=== PATIENT | female | born 1950 | race Two or more races ===

== ENCOUNTER → 2020-08-15 08:39 | Outpatient (BNVA) | payer MEDICARE, SELFPAY | PROVIDERS: PCP Internal Medicine; Referring Provider Internal Medicine; Visit Provider Internal Medicine Endocrinology, Diabetes & Metabolism | DX: E03.9 Hypothyroidism, unspecified (principal); E06.3 Autoimmune thyroiditis; E04.1 Nontoxic single thyroid nodule; E66.9 Obesity, unspecified; Z68.32 Body mass index [BMI] 32.0-32.9, adult; Z79.899 Other long term (current) drug therapy | CPT/HCPCS: 99214 ==

== ENCOUNTER 2020-08-15 09:52 | Outpatient (REF) | payer MEDICARE, SELFPAY ==
[2020-08-15 11:25] LABS: Free T4 (Free Thyroxine) 1.02 ng/dL (0.71-1.85); Thyroid Stimulating Hormone 1.85 mIU/mL (0.32-4.0)
== END 2020-08-15 09:53 | disposition home or self-care (01) ==
LOC: HO.10HDL 09:52
PROVIDERS: Visit Provider Internal Medicine Endocrinology, Diabetes & Metabolism
DX: E03.9 Hypothyroidism, unspecified (principal); E66.9 Obesity, unspecified
CPT/HCPCS: 84439; 84443

== ENCOUNTER → 2020-09-12 13:23 | Outpatient (BNVA) | payer MEDICARE, SELFPAY | PROVIDERS: PCP Internal Medicine; Referring Provider Internal Medicine; Visit Provider Dietitian, Registered | DX: Z76.89 Persons encountering health services in other specified circumstances (principal) ==

== ENCOUNTER 2020-09-23 13:58 | Outpatient (REF) | payer MEDICARE, SELFPAY | END 2020-09-23 13:59 | disposition home or self-care (01) | LOC: HO.LAB 13:58 | PROVIDERS: PCP Internal Medicine; Visit Provider Internal Medicine | DX: Z20.828 Contact with and (suspected) exposure to other viral communicable diseases (principal) | CPT/HCPCS: C9803; U0003 ==

== ENCOUNTER 2020-10-09 14:53 | Outpatient (REF) | payer MEDICARE, SELFPAY ==
[2020-10-09 16:14] LABS: MANUAL DIFF FLAG NO
[2020-10-09 16:17] LABS: Basophils Percent Auto 0.3 % (0-2); Eosinophils Absolute Auto 0.1 X10*3/uL (0.0-0.4); Eosinophils Percent Auto 1.6 % (0-4); Hematocrit 41.8 % (37-47); Hemoglobin 13.7 g/dl (12.0-16.0); Imm Gran Abs Auto 0.02 X10*3/uL (0.00-0.03); Imm Gran Pct Auto 0.3 % (0.0-0.4); Lymphocytes Absolute Auto 2.4 X10*3/uL (1.2-4.9); Lymphocytes Percent Auto 31.3 % (20-40); Mean Corpuscular HGB Conc 32.8 g/dl (31.0-35.0); Mean Corpuscular Hemoglobin 30.2 pg (27.0-33.0); Mean Corpuscular Volume 92.3 fL (80-98); Mean Platelet Volume 10.7 fL (9.4-12.3); Monocytes Absolute Auto 0.7 X10*3/uL (0.1-1.2); Monocytes Percent Auto 8.6 % (2-11); Neutrophils Absolute Auto 4.4 X10*3/uL (2.0-8.3); Neutrophils Percent Auto 57.9 % (45-73); Platelet Count 271 X10*3/uL (160-400); Red Blood Count 4.53 X10*6/uL (4.20-5.50); Red Cell Distribution Width 12.9 % (11.0-16.0); White Blood Count 7.6 X10*3/uL (4.8-10.8)
[2020-10-09 16:51] LABS: Alanine Aminotransferase 17 U/L (0-31); Albumin Level 4.7 g/dL (3.5-5.0); Alkaline Phosphatase 83 U/L (39-117); Anion Gap 11 (12-20); Aspartate Amino Transferase 14 U/L (5-31); Bilirubin Total 0.3 mg/dL (0.0-1.0); Blood Urea Nitrogen 14 mg/dL (9-16); Calcium 9.7 mg/dL (8.4-10.2); Carbon Dioxide 30 mmol/L (22-29); Chloride 104 mmol/L (96-108); Cholesterol 137 mg/dL; Estimated Glomerular Filt Rate > 60; Glucose Fasting 126 mg/dL (60-99); HDL Cholesterol 51 mg/dL; LDL Cholesterol Calculated 68 mg/dl; Potassium 4.5 mmol/l (3.3-5.1); Sodium 140 mmol/L (135-145); Total Protein 7.5 g/dL (6.5-8.0); Triglycerides 91 mg/dL
[2020-10-09 17:02] LABS: Erythrocyte Sedimentation Rate 6 MM/HR (0-20)
[2020-10-09 17:19] LABS: Alanine Aminotransferase 17 U/L (0-31); Albumin Level 4.7 g/dL (3.5-5.0); Alkaline Phosphatase 83 U/L (39-117); Anion Gap 12 (12-20); Aspartate Amino Transferase 14 U/L (5-31); Bilirubin Total 0.3 mg/dL (0.0-1.0); Blood Urea Nitrogen 14 mg/dL (9-16); C Reactive Protein 0.75 mg/dL (< or = 0.50); Calcium 9.7 mg/dL (8.4-10.2); Carbon Dioxide 29 mmol/L (22-29); Chloride 104 mmol/L (96-108); Estimated Glomerular Filt Rate > 60; Glucose Random 124 mg/dL (60-115); Potassium 4.7 mmol/l (3.3-5.1); Rheumatoid Factor < 15.0 IU/mL (<15.0); Sodium 140 mmol/L (135-145); Total Protein 7.5 g/dL (6.5-8.0)
[2020-10-10 12:03] LABS: Cyclic Citrullinated Peptide <16 UNITS
== END 2020-10-09 14:54 | disposition home or self-care (01) ==
LOC: HO.LAB 14:53
PROVIDERS: PCP Internal Medicine; Referring Provider Internal Medicine; Visit Provider Student in an Organized Health Care Education/Training Program
DX: E78.00 Pure hypercholesterolemia, unspecified (principal); M25.50 Pain in unspecified joint; Z79.899 Other long term (current) drug therapy
CPT/HCPCS: 36415; 80053; 80061; 84443; 85025; 85652; 86140; 86200; 86431; 99202

== ENCOUNTER 2020-10-15 11:52 | Outpatient (REF) | payer MEDICARE, SELFPAY ==
--- NOTE | 2020-10-15 11:57 | US_ITS ---
EXAMINATION: US THYROID CLINICAL INFORMATION: Nontoxic single thyroid nodule. COMPARISON: Ultrasound soft tissue head/neck thyroid dated 06/07/2019 and 04/26/2018 TECHNIQUE: Linear transducer jacobs-scale and color Doppler examination with attention to the region of the thyroid. FINDINGS: SIZE: Measurements of the thyroid lobes and nodules are given in sagittal, anteroposterior and transverse dimensions respectively. Right Thyroid Lobe: 3.5 x 1.4 x 1.3 cm, volume 3.3 mL. Previously 3.5 x 1.4 x 1.2 cm, volume 3.6 mL. Parenchyma: The gland echotexture is slightly heterogeneous. Thyroid vascularity is normal. Left Thyroid Lobe: 3.7 x 1.0 x 1.2 cm, volume 2.3 mL. Previously 3.4 x 1.2 x 1.1 cm, volume 2.4 mL. Parenchyma: The gland echotexture is homogeneous. Thyroid vascularity is normal. Isthmus: 0.3 cm in maximum AP dimension. Previously 0.3 cm. RIGHT THYROID LOBE: No nodules. ISTHMUS: No nodules. LEFT THYROID LOBE: There is 1 nodule seen. 1. Location: Middle/inferior. Size: 1.0 x 0.5 x 0.7 cm. Previous: 0.7 x 0.6 x 0.7 cm. Nodule characteristics: Isoechoic, hypoechoic rind, microcalcifications with intranodular flow. NODES: No lymphadenopathy is seen in the tissue surrounding the thyroid gland. US/US thyroid IMPRESSION: Solid 1 cm nodule left thyroid lobe, stable. Recommend annual ultrasound followup.
== END 2020-10-15 11:53 | disposition home or self-care (01) ==
LOC: HO.US 11:52
PROVIDERS: Visit Provider Internal Medicine Endocrinology, Diabetes & Metabolism
DX: E04.1 Nontoxic single thyroid nodule (principal)
CPT/HCPCS: 76536

== ENCOUNTER → 2020-10-28 10:53 | Outpatient (BNVA) | payer MEDICARE, SELFPAY | PROVIDERS: PCP Internal Medicine; Visit Provider Dietitian, Registered | DX: Z76.89 Persons encountering health services in other specified circumstances (principal) ==

== ENCOUNTER 2020-11-04 11:27 | Outpatient (REF) | payer MEDICARE, SELFPAY ==
--- NOTE | 2020-11-04 11:41 | MM_ITS ---
EXAMINATION: MM SCREENING DIGITAL BREAST TOMOSYNTHESIS, BILATERAL CLINICAL INFORMATION: Screening. Asymptomatic. The lifetime risk of breast cancer based on the Tyrer-Cuzick Model is 3%. COMPARISON: Mammography: 05/03/2018, 04/29/2017, 01/06/2016 TECHNIQUE: Digital breast tomosynthesis is performed in both the craniocaudal and mediolateral oblique views along with computer-aided detection (CAD). Synthesized 2D images are generated from the tomosynthesis. Additional right CC view is provided. FINDINGS: There are scattered areas of fibroglandular density (ACR BI-RADS breast composition Category b). There are no significant masses, abnormal calcifications, or other abnormalities. Parenchymal pattern is similar to prior studies. No significant changes. MM/MM tomosynthesis screening BI IMPRESSION: No mammographic evidence of malignancy. ASSESSMENT: BI-RADS 1: Negative RECOMMENDATION: Routine annual mammography screening. This patient's information was entered into a reminder system with a target due date for their next mammogram.
== END 2020-11-04 11:28 | disposition home or self-care (01) ==
LOC: HO.MAMMO 11:27
PROVIDERS: Visit Provider Internal Medicine
DX: Z12.31 Encounter for screening mammogram for malignant neoplasm of breast (principal); E78.00 Pure hypercholesterolemia, unspecified
CPT/HCPCS: 77063; 77067; Q3014

== ENCOUNTER → 2020-11-06 13:37 | Outpatient (BNVA) | payer MEDICARE, SELFPAY | PROVIDERS: Visit Provider Student in an Organized Health Care Education/Training Program | DX: M25.50 Pain in unspecified joint (principal) | CPT/HCPCS: Q3014 ==

== ENCOUNTER → 2020-11-18 13:53 | Outpatient (BNVA) | payer MEDICARE, SELFPAY | PROVIDERS: Visit Provider Internal Medicine | DX: R07.2 Precordial pain (principal); E11.8 Type 2 diabetes mellitus with unspecified complications; I10 Essential (primary) hypertension; E78.5 Hyperlipidemia, unspecified | CPT/HCPCS: 93005; 99202 ==

== ENCOUNTER → 2020-12-26 12:17 | Outpatient (BNVA) | payer MEDICARE, SELFPAY | PROVIDERS: Visit Provider Dietitian, Registered ==

== ENCOUNTER → 2021-01-01 09:18 | Outpatient (REF) | payer MEDICARE, SELFPAY ==
--- NOTE | ~2021-01-01 | NM_ITS ---
Exercise Myocardial perfusion study Indication: The cardial chest pain to evaluate for myocardial ischemia Technique: The patient was brought in for an exercise perfusion study on 01/01/2021. Patient performed exercise as per Steve protocol and was injected 25 mCi of sestamibi was given intravenously one target HR was achieved. Images were obtained using the SPECT gamma camera interlaced with the gating device. Images were obtained in supine position. Resting perfusion study was performed on 01/02/2021. Patient was administered 25 mCi of sestamibi intravenously at rest. Images were then obtained in supine position. Images obtained with and without CT attenuation. Total DLP 67 mGy-cm. Images were processed with the software and compared side to side in short axis, horizontal long axis and vertical long axis views. Findings: The stress perfusion study showed non attenuated images show normal uptake of radiotracer in all segments of LV myocardium. Attenuation corrected images show mildly reduced uptake in the apex of the LV myocardium. The gated study shows normal LV systolic function with calculated LVEF of 72%. LV cavity is normal in size. The gated study shows normal systolic wall thickening and contraction of all segments. There is no transient ischemic dilation. Resting study shows non attenuated images show minimally reduced uptake in the apex of the LV myocardium. Gating at rest reveals normal systolic wall motion with ejection fraction at 72%. The findings are consistent with normal myocardial perfusion. NM/NM cardiolite stress test Impression: 1. Normal myocardial perfusion 2. Gated LVEF is 72% 3. Transient ischemic dilatation not present Stress EKG is negative for ischemia
--- NOTE | 2021-01-01 09:30 | CA_ITS ---
Acquisition Time: 2021-01-01 10:39:45 Total Exercise Time: 00:05:01 Test Indications: Chest Pain Medications: ALBUTEROL ASA LEVOTHYROXINE LISINOPRIL PANTOPRAZOLE SIMVASTATIN Protocol: LAURA Max HR: 131 BPM 86% of Pred: 152 BPM Max BP: 134/070 mmHG Max Work Load: 4.6 METS Exercise stress test using Laura protocol. Total of 5 min 1 sec. METS 4.60 and TAPHR up to 86%. Test was modified d/t pt's inability to walk fast, second stage was held. Pt tolerated well, denies any anginal sx. EKG with isolated PVC's. No ischemic changes seen during exercise or in recovery. Nuclear images to follow. Normotensive response to exercise. Test reviewed with Dr. Little. Referred By: Misael Chase Overread By:
== END ==
LOC: HO.CARD 09:18
PROVIDERS: Visit Provider Internal Medicine
DX: R07.2 Precordial pain (principal)
CPT/HCPCS: 78452; 93016; 93017; 93018; A9500; J0280; J2785

== ENCOUNTER → 2021-01-30 13:06 | Outpatient (BNVA) | payer MEDICARE, SELFPAY | PROVIDERS: PCP Internal Medicine; Visit Provider Dietitian, Registered | DX: Z13.89 Encounter for screening for other disorder (principal) | CPT/HCPCS: 97803 ==

== ENCOUNTER → 2021-02-03 09:17 | Outpatient (REF) | payer MEDICARE, SELFPAY ==
--- NOTE | 2021-02-03 09:32 | CA_ITS ---
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 Normal LV systolic function with grade 1 diastolic dysfunction 2. Normal cardiac valvular Doppler 3. Normal RV systolic pressure 4. No pericardial effusion Findings Left Ventricle Normal left ventricular size, thickness, and systolic function. The visually estimated ejection fraction is between 60-65%. Spectral Doppler is indicative of an impaired relaxation filling pattern. E/E prime ratio is <8, consistent with normal filling pressures. Evidence suggests grade I (mild) diastolic dysfunction. Right Ventricle Normal right ventricular cavity size and systolic function. Atria Both atria are normal in size. There is no evidence of interatrial shunt. Aortic Valve The aortic valve was not well visualized. There is no aortic valve stenosis. There is no aortic valve regurgitation. Mitral Valve Normal mitral valve structure and function. There is trace mitral valve regurgitation. There is no mitral valve stenosis. Pulmonic Valve The pulmonic valve was not well visualized. Tricuspid Valve Likely normal tricuspid valve structure and function. There is trace tricuspid valve regurgitation. The right ventricular systolic pressure is normal. The right ventricular systolic pressure is 21 mmHg. Normal right atrial pressure. There is no evidence of pulmonary hypertension. Great Vessels All visible segments of the aorta are normal in size. The pulmonary artery was not well visualized. Venous The inferior vena cava is normal in size and collapses greater than 50% with inspiration. Pericardium/Pleural There is no evidence of pericardial effusion. Prior Study Comparison No prior study available for comparison. Measurements 2D Linear Measurements IVSd: 0.89 0.6-0.9/0.6-1.0 cm LVIDd: 3.19 3.9-5.3/4.2-5.9 cm LVIDd Index: 1.90 2.4-3.2/2.2-3.1 cm/m2 LVIDs: 2.04 2.0-3.6 cm LVPWd: 0.94 0.7-1.1 cm Ao Root: 2.90 2.1-3.5 cm LA Diam: 3.80 2.7-3.8/3.0-4.0 cm LAIDs Index: 2.26 1.5-2.3 cm/m2 LV Mass: 148.88 67-162/88-224 g LV Mass Index: 88.62 43-95/49-115 g/m2 LVOT Diam: 2.20 3.0+(-)1.3 cm Mitral Valve MV Pk E: 0.63 MV PK A: 0.77 MV Decel Time: 211.00 E/A: 0.80 E'Lateral: 11.50 E'Medial: 5.71 E/E' Med: 11.00 E/E' Lat: 5.40 PHT: 62.00 MVA PHT: 3.55 Decel [place]cho: 2.96 Aortic Valve AoV Pk Elias: 1.69 AoV Mn Elias: 1.01 AoV VTI: 0.36 AoV Pk Grad: 11.00 Aov Mn Grad: 5.00 ANU Cont.VTI: 2.67 LVOT LVOT Pk Elias: 1.16 LVOT Mn Elias: 0.72 LVOT VTI: 0.25 LVOT Pk Grad: 5.00 LVOT Mn Grad: 3.00 LVOT Diam: 2.20 LVOT Area: 3.80 Diastolic Function MV Pk E: 0.63 MV Pk A: 0.77 E/A: 0.80 E'Medial: 5.71 E/E' Med: 11.00 E' Laterial: 11.50 E/E' Lat: 5.40 Tricuspid Valve TR Pk Elias: 2.12 TR Pk Grad: 18.00 RA Press: 3.00 RVSP: 21.00 Great Vessels Aorta Ao Root-2D: 2.90 2.0-3.7 cm Pulmonary Valve PV Pk Elias: 1.03 Peak PV Grad: 4.00 Updated in Other Vendor System with Status of Final Solomon Little MD electronically signed on 02/03/2021 6:09:39 PM with status of Final
[2021-02-03 10:16] LABS: Alanine Aminotransferase 17 U/L (0-31); Albumin Level 4.6 g/dL (3.5-5.0); Alkaline Phosphatase 81 U/L (39-117); Anion Gap 12 (12-20); Aspartate Amino Transferase 14 U/L (5-31); Bilirubin Total 0.4 mg/dL (0.0-1.0); Blood Urea Nitrogen 18 mg/dL (9-16); Calcium 10.3 mg/dL (8.4-10.2); Carbon Dioxide 30 mmol/L (22-29); Chloride 102 mmol/L (96-108); Cholesterol 131 mg/dL; Estimated Glomerular Filt Rate > 60; Glucose Fasting 152 mg/dL (60-99); HDL Cholesterol 55 mg/dL; LDL Cholesterol Calculated 62 mg/dl; Potassium 4.8 mmol/L (3.3-5.1); Sodium 139 mmol/L (135-145); Total Protein 7.6 g/dL (6.5-8.0); Triglycerides 70 mg/dL
[2021-02-03 10:38] LABS: TSH reflex Free T4 2.11 uIU/mL (0.32-4.0)
[2021-02-03 10:39] LABS: Creatinine Urine 104.34 mg/dL; Microalbum/Creatinine Ratio Ur 4.7 ug/mg cr
[2021-02-07 14:42] LABS: Vitamin D 25-OH, D2 <4 ng/mL; Vitamin D 25-OH, D3 38 ng/mL; Vitamin D 25-OH, Total 38 ng/mL (30-100)
== END ==
LOC: HO.CARD 09:17
PROVIDERS: Absent Provider Internal Medicine; PCP Internal Medicine; Visit Provider Internal Medicine
DX: R07.2 Precordial pain (principal); E06.3 Autoimmune thyroiditis; E55.9 Vitamin D deficiency, unspecified; E11.8 Type 2 diabetes mellitus with unspecified complications; E78.5 Hyperlipidemia, unspecified
CPT/HCPCS: 36415; 80053; 80061; 82043; 82306; 84443; 93306

== ENCOUNTER → 2021-03-11 10:52 | Outpatient (BNVA) | payer MEDICARE, SELFPAY | PROVIDERS: PCP Internal Medicine; Referring Provider Internal Medicine; Visit Provider Internal Medicine | DX: R07.2 Precordial pain (principal); E11.8 Type 2 diabetes mellitus with unspecified complications; E78.5 Hyperlipidemia, unspecified; I10 Essential (primary) hypertension | CPT/HCPCS: 99212 ==

== ENCOUNTER 2021-05-27 20:53 | Emergency (ER) | payer MEDICARE, SELFPAY ==
[2021-05-27 21:04] VITALS: BP 145/70; PULSE 75; RESP 18; TEMP 36.6; O2SAT 98; BMI 28.3
--- NOTE | 2021-05-27 22:21 | ED_ITS ---
HPI - General Adult General Chief complaint: General Medical Stated complaint: vag bleeding? 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 She denies that there was any blood within the toilet bowl but states that it was present on the toilet paper and she denies any contamination of her underwear afterwards. Patient states that she has had 2 bowel movements since the 1 yesterday and that both of these she has noted a small amount of blood on the toilet paper, but again none contaminating her underwear. She denies ever having hemorrhoids in her life and denies any associated dizziness, chest pain/palpitations, shortness of breath, abdominal pain, or urinary symptoms. Related Data Previous Rx's Medication Instructions Recorded ibuprofen 600 mg tablet 600 mg PO TID 30 Days #90 tab 08/26/20 albuterol sulfate 90 mcg/actuation 2 puff INHALATION Q4-6H PRN 30 09/25/20 aerosol inhaler Days #8.5 g blood sugar diagnostic #50 ea 10/04/20 lisinopril 10 mg tablet 10 mg PO DAILY 90 Days #90 tab 12/10/20 pantoprazole 40 mg tablet,delayed 40 mg PO DAILY 90 Days #90 tab 12/10/20 release levothyroxine 50 mcg tablet 50 mcg PO DAILY 90 Days #90 tab 01/27/21 aspirin 81 mg tablet,delayed 81 mg PO DAILY 30 Days #30 tab 03/17/21 release blood sugar diagnostic #100 ea 03/17/21 simvastatin 40 mg tablet 40 mg PO DAILY 90 Days #90 tab 03/17/21 blood-glucose meter #1 ea 03/18/21 lancets 30 gauge #100 ea 03/18/21 blood sugar diagnostic 1 strip MISCELLANEOUS BID 90 Days 04/27/21 #100 strip metformin 1,000 mg tablet 500 mg PO DAILY 30 Days #15 tab 04/27/21 acyclovir 400 mg tablet 400 mg PO TID 7 Days #21 tab 05/12/21 zolpidem 10 mg tablet 10 mg PO BEDTIME PRN 30 Days #30 05/22/21 tab [id number]-[id number]-[id number]-petrol 1 appl TOPICAL BID PRN #28 g 05/27/21 [Preparation H Rapid Rlf-Lidocn] Allergies Allergy/AdvReac Type Severity Reaction Status Date / Time No Known Allergies Allergy Verified 05/27/21 21:14 [No Known Allergies*] Review of Systems Review of Systems: Pertinent positives and negatives as stated in HPI 10 point review of systems is otherwise negative. [facility] Past Medical History Source: nursing notes reviewed Medical History Asthma Autoimmune thyroiditis Depression Diabetes Dyslipidemia GERD (gastroesophageal reflux disease) Insomnia Obesity (BMI 30-39.9) Osteoarthritis Thyroid nodule Surgical History History of laparoscopic cholecystectomy Hx of appendectomy Hx of colonoscopy Hx of tubal ligation Hx of wisdom tooth extraction Family History Family History Father Edema Mother Diabetes CVA (cerebral vascular accident) Hypertension Social History Social History Alcohol intake: never Patient Tobacco Use Status: Never used Tobacco Advance Directives: Yes Advance Directives on File: Yes Advance Directives Date on File: 08/15/20 Physical Exam Vital Signs: Vital Signs: Last Vital Signs Temp 97.8 F 05/27/21 21:04 Pulse 75 05/27/21 21:04 Resp 18 05/27/21 21:04 BP 145/70 H 05/27/21 21:04 Pulse Ox 98 05/27/21 21:04 Body Mass Index 28.3 VITAL SIGNS: Reviewed. GENERAL: Well developed, well nourished, in no acute distress. HEAD: Normocephalic/atraumatic, EYES: PERRLA, EOMI EARS: Ext canals without abnormality OROPHARYNX: no oral lesions noted, posterior pharynx clear LUNGS: Normal breath sounds. No adventitious sounds or accessory muscle use. SpO2<98> CARDIOVASCULAR: Regular rate and rhythm without noted murmurs, no JVD or lower extremity edema. ABDOMEN: Soft, non-tender, non-distended with bowel sounds. TALON: Several noted hemorrhoids, mildly inflamed, no noted fissures, minimal stool that is firm and brown within the rectal vault without gross blood noted on finger, good rectal tone RIGHT HIP: No noted deformity, neurovascularly intact distal as well as full range of motion but discomfort at greater trochanter on palpation SKIN: Inspection of the skin reveals no rashes, NEUROLOGIC: Alert and oriented x 4. Strength and sensation to light touch were grossly intact x 4. Course Course Course Narrative: 70-year-old female with history and clinical presentation consistent with chronic right hip pain and recent visit to her primary care provider and has been ongoing ?for years?. Otherwise, patient noted to have mildly inflamed hemorrhoids. Will do basic lab work but otherwise discharge patient with a prescription for preparation H and direction to follow-up with her primary care provider. Review of all investigations negative for acute findings and stool was guaiac negative. Patient informed of all results and will be discharged in stable condition. Medical Decision Making Lab Data Result diagrams: 05/27/21 22:55 05/27/21 22:55 Labs: Lab Results 05/27/21 05/27/21 05/27/21 Range/Units 22:49 22:55 22:55 WBC 7.8 (4.8-10.8) X10*3/uL RBC 4.45 (4.20-5.50) X10*6/uL Hgb 13.5 (12.0-16.0) g/dl Hct 40.9 (37-47) % MCV 91.9 (80-98) fL MCH 30.3 (27.0-33.0) pg MCHC 33.0 (31.0-35.0) g/dl RDW 13.2 (11.0-16.0) % Plt Count 248 (160-400) X10*3/uL MPV 10.8 (9.4-12.3) fL Immature Gran % (Auto) 0.1 (0.0-0.4) % Neut % (Auto) 59.3 (45-73) % Lymph % (Auto) 29.2 (20-40) % [place] % (Auto) 9.8 (2-11) % Eos % (Auto) 1.3 (0-4) % Baso % (Auto) 0.3 (0-2) % Lymph # (Auto) 2.3 (1.2-4.9) X10*3/uL [place] # (Auto) 0.8 (0.1-1.2) X10*3/uL Eos # (Auto) 0.1 (0.0-0.4) X10*3/uL Baso # (Auto) 0.0 (0.0-0.2) X10*3/uL Abs Immat Gran (auto) 0.01 (0.00-0.03) X10*3/uL Absolute Neuts (auto) 4.6 (2.0-8.3) X10*3/uL Absolute Nucleated RBC 0.000 (0.0-0.012) X10*3/uL Nucleated RBC % (auto) 0.0 (0.0-0.2) /100WBC Sodium 143 (135-145) mmol/L Potassium 4.5 (3.3-5.1) mmol/L Chloride 108 (96-108) mmol/L Carbon Dioxide 27 (22-29) mmol/L Anion Gap 13 (12-20) BUN 12 (9-16) mg/dL Creatinine 0.83 (0.5-1.4) mg/dL Estim Creat Clear Calc 61.9 Estimated GFR > 60 Random Glucose 174 H D (60-115) mg/dL Calcium 9.9 (8.4-10.2) mg/dL Stool Occult Blood NEGATIVE (NEGATIVE) Discharge Plan Discharge Clinical Impression: Hemorrhoids, Hip pain Patient Disposition: Home, Self-Care Instructions: Hemorrhoids (ED), Hip Pain (ED) Additional Instructions: 1. Reanude todos los medicamentos caseros. 2. Recomiende Tylenol / ibuprofeno de venta shanice, as? veronica un parche de lidoca?na en la cadera derecha, y debe hacer un seguimiento con ring proveedor de atenci?n primaria para conversar sobre yadira posible fisioterapia. 3. Hemorroides: Se le bales proporcionado yadira receta para alessandro hemorroides y le recomendamos que shannon un seguimiento con ring proveedor de atenci?n primaria para yadira reevaluaci?n de estas y un tratamiento ambulatorio adicional. Regrese a la serafin de emergencias por un empeoramiento tin de los s?ntomas. Prescriptions: New Preparation H Rapid Rlf-Lidocn 5-0.25-14.4-15 % cream 1 appl topical BID PRN (Reason: rectal discomfort) Qty: 28 RF: 0 No Action albuterol sulfate [ProAir HFA] 90 mcg/actuation HFA aerosol inhaler 2 puff inhalation Q4-6H PRN (Reason: bronchospasm) 30 Days Qty: 8.5 RF: 6 (DME) OneTouch Verio test strips Strip See Rx Instructions .ROUTE .MEDSUPPLY Qty: 50 RF: 11 lisinopril 10 mg tablet 10 mg PO DAILY 90 Days Qty: 90 RF: 3 pantoprazole 40 mg tablet,delayed release (DR/EC) 40 mg PO DAILY 90 Days Qty: 90 RF: 3 levothyroxine 50 mcg tablet 50 mcg PO DAILY 90 Days Qty: 90 RF: 3 simvastatin 40 mg tablet 40 mg PO DAILY 90 Days Qty: 90 RF: 3 (DME) FreeStyle Test Strip See Rx Instructions .ROUTE .MEDSUPPLY Qty: 100 RF: 3 aspirin [Adult Aspirin Regimen] 81 mg tablet,delayed release (DR/EC) 81 mg PO DAILY 30 Days Qty: 30 RF: 11 (DME) blood-glucose meter [MedPAC TechnologiesTouch Ultra2 Meter] Misc See Rx Instructions .ROUTE .MEDSUPPLY Qty: 1 RF: 0 (DME) lancets [OneTouch Delica Lancets] 30 gauge misc See Rx Instructions .ROUTE .MEDSUPPLY Qty: 100 RF: 0 metformin 1,000 mg tablet 500 mg PO DAILY 30 Days Qty: 15 RF: 4 OneTouch Verio test strips Strip 1 strip miscellaneous BID 90 Days Qty: 100 RF: 3 acyclovir 400 mg tablet 400 mg PO TID 7 Days Qty: 21 RF: 0 zolpidem 10 mg tablet 10 mg PO BEDTIME PRN (Reason: insomnia) 30 Days Qty: 30 RF: 0 ibuprofen 600 mg tablet 600 mg PO TID 30 Days Qty: 90 RF: 6 Referrals: Karo Banerjee MD [Primary Care Provider] - 2 days Print Language: Nicaraguan
--- NOTE | 2021-05-27 22:40 | PC.NURSE ---
IN ROOM FOR EVAL.
[2021-05-27 22:59] LABS: MANUAL DIFF FLAG NO
[2021-05-27 23:00] LABS: OBS Int Ctl Valid YES; OBS1 NEGATIVE (NEGATIVE)
[2021-05-27 23:09] LABS: Basophils Percent Auto 0.3 % (0-2); Eosinophils Absolute Auto 0.1 X10*3/uL (0.0-0.4); Eosinophils Percent Auto 1.3 % (0-4); Hematocrit 40.9 % (37-47); Hemoglobin 13.5 g/dl (12.0-16.0); Imm Gran Abs Auto 0.01 X10*3/uL (0.00-0.03); Imm Gran Pct Auto 0.1 % (0.0-0.4); Lymphocytes Absolute Auto 2.3 X10*3/uL (1.2-4.9); Lymphocytes Percent Auto 29.2 % (20-40); Mean Corpuscular Hemoglobin 30.3 pg (27.0-33.0); Mean Corpuscular Volume 91.9 fL (80-98); Mean Platelet Volume 10.8 fL (9.4-12.3); Monocytes Absolute Auto 0.8 X10*3/uL (0.1-1.2); Monocytes Percent Auto 9.8 % (2-11); Neutrophils Absolute Auto 4.6 X10*3/uL (2.0-8.3); Neutrophils Percent Auto 59.3 % (45-73); Platelet Count 248 X10*3/uL (160-400); Red Blood Count 4.45 X10*6/uL (4.20-5.50); Red Cell Distribution Width 13.2 % (11.0-16.0); White Blood Count 7.8 X10*3/uL (4.8-10.8)
[2021-05-27 23:29] LABS: Anion Gap 13 (12-20); Blood Urea Nitrogen 12 mg/dL (9-16); Calcium 9.9 mg/dL (8.4-10.2); Carbon Dioxide 27 mmol/L (22-29); Chloride 108 mmol/L (96-108); Creatinine Clr Calc Pharmacy 61.9; Estimated Glomerular Filt Rate > 60; Glucose Random 174 mg/dL (60-115); Potassium 4.5 mmol/L (3.3-5.1); Sodium 143 mmol/L (135-145)
== END 2021-05-28 00:09 | disposition home or self-care (01) ==
PROVIDERS: Emergency Provider Student in an Organized Health Care Education/Training Program; PCP Internal Medicine
DX: K64.9 Unspecified hemorrhoids (principal); M25.551 Pain in right hip; I10 Essential (primary) hypertension; E11.9 Type 2 diabetes mellitus without complications; Z79.899 Other long term (current) drug therapy; Z79.84 Long term (current) use of oral hypoglycemic drugs
CPT/HCPCS: 36415; 80048; 82272; 85025; 99283

== ENCOUNTER 2021-05-29 12:25 | Outpatient (REF) | payer MEDICARE, SELFPAY ==
[2021-05-29 14:18] LABS: Glucose Urine UA 500 MG/DL (NEG); Leukocyte Esterase Urine NEG (NEG); Nitrite Urine NEG (NEG); PH 6.5 (5.0-8.0); Urine Blood NEG (NEG); Urine Ketones NEG (NEG); Urine Protein NEG (NEG-TRACE)
[2021-05-29 14:20] LABS: Appearance Urine CLEAR; Color Urine YELLOW
== END 2021-05-29 12:26 | disposition home or self-care (01) ==
LOC: HO.LAB 12:25
PROVIDERS: PCP Internal Medicine; Visit Provider Internal Medicine
DX: R30.9 Painful micturition, unspecified (principal)
CPT/HCPCS: 81003

== ENCOUNTER → 2021-07-09 09:40 | Outpatient (BNVA) | payer MEDICARE, SELFPAY | PROVIDERS: PCP Internal Medicine; Visit Provider Obstetrics & Gynecology | DX: A60.00 Herpesviral infection of urogenital system, unspecified (principal) | CPT/HCPCS: 99212 ==

== ENCOUNTER → 2021-09-24 10:01 | Outpatient (BNVA) | payer MEDICARE, SELFPAY | PROVIDERS: PCP Internal Medicine; Visit Provider Nurse Practitioner Gerontology | DX: E03.9 Hypothyroidism, unspecified (principal); E04.1 Nontoxic single thyroid nodule; E06.3 Autoimmune thyroiditis | CPT/HCPCS: 99212 ==

== ENCOUNTER 2021-09-24 10:59 | Outpatient (REF) | payer MEDICARE, SELFPAY ==
[2021-09-24 14:46] LABS: Free T4 (Free Thyroxine) 0.94 ng/dL (0.71-1.85); Thyroid Stimulating Hormone 2.16 uIU/mL (0.32-4.0)
== END 2021-09-24 11:00 | disposition home or self-care (01) ==
LOC: HO.10HDL 10:59
PROVIDERS: Visit Provider Nurse Practitioner Gerontology
DX: E06.3 Autoimmune thyroiditis (principal)
CPT/HCPCS: 36415; 84439; 84443

== ENCOUNTER 2021-10-02 11:02 | Outpatient (REF) | payer MEDICARE, SELFPAY ==
--- NOTE | ~2021-10-02 | US_ITS ---
EXAMINATION: US VENOUS ULTRASOUND WITH DOPPLER LOWER EXTREMITY, LEFT CLINICAL INFORMATION: Left leg pain COMPARISON: None TECHNIQUE: Ultrasound of the deep veins is performed from the hip to the calf with compression sonography and color and pulse Doppler assessment. Spectral analysis with color-flow imaging is performed. FINDINGS: There is normal venous compression and respiratory variation and augmented flow. The visualized common femoral vein, superficial femoral vein, profunda femoral vein, popliteal vein, and the trifurcation region shows no evidence of deep venous thrombosis. There is no significant popliteal fossa cyst. If the patient's symptoms persist, followup ultrasound in 5 days 7 days might be of value to exclude proximal propagation from a non-visualized calf vein. US/US venous duplex LE LT IMPRESSION: No DVT demonstrated in the left lower extremity.
== END 2021-10-02 11:03 | disposition home or self-care (01) ==
LOC: HO.US 11:02
PROVIDERS: PCP Internal Medicine; Visit Provider Internal Medicine
DX: M79.605 Pain in left leg (principal)
CPT/HCPCS: 93971

== ENCOUNTER 2021-10-21 10:29 | Outpatient (REF) | payer MEDICARE, SELFPAY ==
--- NOTE | ~2021-10-21 | US_ITS ---
EXAMINATION: US THYROID CLINICAL INFORMATION: Autoimmune thyroiditis. COMPARISON: Previous thyroid ultrasound most recent October 2020 TECHNIQUE: Linear transducer jacobs-scale and color Doppler examination with attention to the region of the thyroid. FINDINGS: SIZE: Measurements of the thyroid lobes and nodules are given in sagittal, anteroposterior and transverse dimensions respectively. Right Thyroid Lobe: 3.7 x 1.5 x 1.4 cm, volume 4.0 mL. Previously 3.5 x 1.4 x 1.3 cm, volume 3.3 mL. Parenchyma: The gland echotexture is homogeneous. Thyroid vascularity is normal. Left Thyroid Lobe: 3.4 x 1.1 x 1.1 cm, volume 2.2 mL. Previously 3.7 x 1.0 x 1.2 cm, volume 2.3 mL. Parenchyma: The gland echotexture is homogeneous. Thyroid vascularity is normal. Isthmus: 0.3 cm in maximum AP dimension. Previously 0.3 cm. Estimated total number of nodules greater than or equal to 1 cm: 0. 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 Location: . Size: 0.9 x 0.7 x 0.7 cm, volume 0.24 mL. Previously: 1.0 x 0.5 x 0.7 cm, volume 0.17 mL. Nodule characteristics: Composition: Solid (2). Echogenicity: Isoechoic (1). Shape: Not taller than wide (0). Margins: Smooth (0). Echogenic Foci: None (0). ACR TI-RADS total points: 3 ACR TI-RADS category: 3 Significant change in size (>/= 20% in 2 dimensions and minimal increase of 2 mm or 50% or greater increase in volume): Change in features: Change in ACR TI-RADS risk category: NODES: No lymphadenopathy is seen in the tissue surrounding the thyroid gland. US/US thyroid IMPRESSION: Stable solitary left thyroid nodule. ACR TI-RADS RECOMMENDATION REFERENCE: Ultrasound-guided fine-needle aspiration, followup ultrasound, no further follow up. * TR1 (0 point) and TR 2 (2 points): No FNA or follow up * TR3 (3 points): FNA if more than or equal to 2.5 cm in maximum dimension, followup ultrasound in 1, 3 and 5 years if 1.5 to 2.4 cm in maximum dimension. * TR4 (4-6 points): FNA if more than or equal to 1.5 cm in maximum dimension, followup ultrasound in 1, 2, 3 and 5 years if 1 to 1.4 cm in maximum dimension. * TR5 (more than or equal to 7 points): FNA if more than or equal to 1 cm in maximum dimension, followup ultrasound every year for 5 years if 0.5 to 0.9 cm in maximum dimension. * TR3, TR4 or TR5 nodules that are below the size threshold for follow up receive no follow up.
== END 2021-10-21 10:30 | disposition home or self-care (01) ==
LOC: HO.US 10:29
PROVIDERS: PCP Internal Medicine; Visit Provider Nurse Practitioner Gerontology
DX: E04.1 Nontoxic single thyroid nodule (principal); E06.3 Autoimmune thyroiditis
CPT/HCPCS: 76536

== ENCOUNTER 2021-11-17 11:50 | Outpatient (REF) | payer MEDICARE, SELFPAY ==
[2021-11-17 12:55] LABS: COVID-19 Test Positive (Negative)
== END 2021-11-17 11:51 | disposition home or self-care (01) ==
LOC: HO.LAB 11:50
PROVIDERS: Visit Provider Internal Medicine
DX: Z20.822 Contact with and (suspected) exposure to COVID-19 (principal)
CPT/HCPCS: 87635; C9803

== ENCOUNTER 2021-11-24 12:23 | Outpatient (REF) | payer MEDICARE, SELFPAY ==
[2021-11-24 12:53] LABS: Binax Internal Control QC Valid; Binax Now Covid-19 Ag Negative (Negative)
== END 2021-11-24 12:24 | disposition home or self-care (01) ==
LOC: HO.LAB 12:23
PROVIDERS: PCP Internal Medicine; Visit Provider Internal Medicine
DX: Z20.822 Contact with and (suspected) exposure to COVID-19 (principal)
CPT/HCPCS: C9803

== ENCOUNTER 2021-11-25 08:52 | Outpatient (REF) | payer MEDICARE, SELFPAY ==
--- NOTE | ~2021-11-25 | MM_ITS ---
EXAMINATION: MM SCREENING DIGITAL BREAST TOMOSYNTHESIS, BILATERAL CLINICAL INFORMATION: Screening. Asymptomatic. The lifetime risk of breast cancer based on the Tyrer-Cuzick Model is 3%. COMPARISON: Mammography: 11/04/2020, 05/03/2018, 04/29/2017 TECHNIQUE: Digital breast tomosynthesis is performed in both the craniocaudal and mediolateral oblique views along with computer-aided detection (CAD). Synthesized 2D images are generated from the tomosynthesis. Additional left MLO view is provided. FINDINGS: There are scattered areas of fibroglandular density (ACR BI-RADS breast composition Category b). There are no significant masses, abnormal calcifications, or other abnormalities. Breast tissue composition borders on predominantly fatty. Background stromal markings are stable. No significant changes. MM/MM tomosynthesis screening BI IMPRESSION: No mammographic evidence of malignancy. ASSESSMENT: BI-RADS 1: Negative RECOMMENDATION: Routine annual mammography screening. This patient's information was entered into a reminder system with a target due date for their next mammogram.
--- NOTE | ~2021-11-25 | MM_ITS ---
EXAMINATION: BONE DENSITOMETRY CLINICAL INDICATION: Autoimmune thyroiditis. COMPARISON: Previous BD dated 04/23/2016 and baseline BD dated 04/15/2010. TECHNIQUE: Using a [employer] DXA System (software version: 13.1) manufactured by [employer], dual-energy x-ray absorptiometry was performed of the lumbar spine and left hip. The images are of good technical quality. Summary results are attached. FINDINGS: AP SPINE L2-L4 (excluding L1): The data of L1-L4 has been changed to exclude the L1 vertebral body, because degenerative changes at this level may cause overestimation of lumbar spine density. Current: BMD 0.890 g/cm2, Z-score -1.2, T-score -2.6, osteoporosis, 8.3% decrease from previous, 13.1% decrease from baseline (<5% change is not significant). Prior: BMD 0.971 g/cm2. Baseline: BMD 1.024 g/cm2. LEFT FEMUR, NECK: Current: BMD 0.739 g/cm2, Z-score -0.7, T-score -2.1, osteopenia. Prior: BMD 0.811 g/cm2. Baseline: BMD 0.870 g/cm2. LEFT FEMUR, TOTAL: Current: BMD 0.939 g/cm2, Z-score 0.7, T-score -0.5, normal, 7.5% decrease from previous, 6.5% decrease from baseline (<5% change is not significant). Prior: BMD 1.015 g/cm2. Baseline: BMD 1.004 g/cm2. IDENTIFIED RISK FACTORS: Recurrent falls, height loss, rheumatoid arthritis. Early menopause, secondary osteoporosis. HISTORY OF FRACTURE: None listed. MEDICATIONS: Calcium supplements or multivitamin, vitamin D. MM/XR DEXA axial skeleton IMPRESSION: 1. DIAGNOSIS: Osteoporosis based on the lowest T-score value of -2.6 in the lumbar spine applying World Health Organization criteria. 2. 10-YEAR FRACTURE RISK PREDICTION, FRAX: According to the guidelines, FRAX calculation should only be performed on patients in the osteopenia bone density category. 3. Treatment Recommendations: NOF guidelines recommend consideration for treatment in postmenopausal women and men age 50 and older presenting with the following: -A hip or vertebral (clinical or morphometric) fracture. -T-score less than or equal to -2.5 at the femoral neck or spine after appropriate evaluation to exclude secondary causes. -Low bone mass at the hip or spine and a 10-year fracture probability by FRAX of greater than or equal to 3% for hip fracture or greater than or equal to 20% for major osteoporotic fracture based on the [place] adapted WHO algorithm. 4. Other Recommendations: All treatment decisions require clinical judgment and consideration of individual patient factors, including patient preferences, comorbidities, previous drug use, risk factors not captured in the FRAX model (e.g. frailty, falls, vitamin D deficiency, increased bone turnover, interval significant decline in bone density) and possible under or overestimation of fracture risk by FRAX. Additional medical evaluation for secondary cause of low bone mineral density may be appropriate. FUTURE SCAN RECOMMENDATION: People with diagnosed cases of osteoporosis or at high risk for fracture should have regular bone mineral density tests. For patients eligible for Medicare, routine testing is allowed once every 2 years. The testing frequency can be increased to one year for patients who have rapidly progressing disease, those who are receiving or discontinuing medical therapy to restore bone mass, or have additional risk factors.
== END 2021-11-25 08:53 | disposition home or self-care (01) ==
LOC: HO.MAMMO 08:52
PROVIDERS: PCP Internal Medicine; Visit Provider Internal Medicine
DX: Z12.31 Encounter for screening mammogram for malignant neoplasm of breast (principal); Z13.820 Encounter for screening for osteoporosis; E06.3 Autoimmune thyroiditis; M81.0 Age-related osteoporosis without current pathological fracture; Z78.0 Asymptomatic menopausal state; Z79.899 Other long term (current) drug therapy
CPT/HCPCS: 77063; 77067; 77080

== ENCOUNTER 2022-02-09 08:39 | Outpatient (REF) | payer MEDICARE, SELFPAY ==
[2022-02-09 10:12] LABS: Alanine Aminotransferase 19 U/L (0-31); Albumin Level 4.4 g/dL (3.5-5.0); Alkaline Phosphatase 75 U/L (39-117); Anion Gap 12 (12-20); Aspartate Amino Transferase 14 U/L (5-31); Bilirubin Total 0.3 mg/dL (0.0-1.0); Blood Urea Nitrogen 13 mg/dL (9-16); Calcium 10.3 mg/dL (8.4-10.2); Carbon Dioxide 27 mmol/L (22-29); Chloride 105 mmol/L (96-108); Cholesterol 126 mg/dL; Estimated Glomerular Filt Rate > 60; Glucose Fasting 158 mg/dL (60-99); HDL Cholesterol 46 mg/dL; LDL Cholesterol Calculated 65 mg/dl; Potassium 4.8 mmol/L (3.3-5.1); Sodium 139 mmol/L (135-145); Total Protein 7.3 g/dL (6.5-8.0); Triglycerides 76 mg/dL
[2022-02-09 10:34] LABS: Thyroid Stimulating Hormone 3.82 uIU/mL (0.32-4.0)
[2022-02-09 10:35] LABS: Free T4 (Free Thyroxine) 1.02 ng/dL (0.71-1.85)
[2022-02-09 10:52] LABS: Creatinine Urine 137.45 mg/dL
[2022-02-13 13:36] LABS: Vitamin D 25-OH, D2 <4 ng/mL; Vitamin D 25-OH, D3 43 ng/mL; Vitamin D 25-OH, Total 43 ng/mL (30-100)
== END 2022-02-09 08:40 | disposition home or self-care (01) ==
LOC: HO.LAB 08:39
PROVIDERS: Nurse Practitioner Gerontology; PCP Internal Medicine; Visit Provider Internal Medicine
DX: E78.5 Hyperlipidemia, unspecified (principal); E11.9 Type 2 diabetes mellitus without complications; E55.9 Vitamin D deficiency, unspecified; E03.9 Hypothyroidism, unspecified
CPT/HCPCS: 36415; 80053; 80061; 82043; 82306; 84439; 84443

== ENCOUNTER 2022-03-02 11:19 | Emergency (ER) | payer OTHER, SELFPAY ==
--- NOTE | 2022-03-02 11:28 | ECG_ITS ---
Test Reason : cp Blood Pressure : / mmHG Vent. Rate : 073 BPM Atrial Rate : 073 BPM P-R Int : 172 ms QRS Dur : 092 ms QT Int : 370 ms P-R-T Axes : 033 -18 018 degrees QTc Int : 407 ms Normal sinus rhythm Normal ECG No previous ECGs available Referred By: Generic ED Physician Electronically Signed By:DAVID GOODMAN MD
[2022-03-02 11:36] VITALS: BP 151/75; PULSE 80; RESP 16; TEMP 36.6; O2SAT 100; BMI 28.3
[2022-03-02 11:56] LABS: MANUAL DIFF FLAG NO
[2022-03-02 12:12] LABS: Basophils Percent Auto 0.3 % (0-2); Eosinophils Absolute Auto 0.1 X10*3/uL (0.0-0.4); Eosinophils Percent Auto 1.2 % (0-4); Hematocrit 42.5 % (37.0-47.0); Hemoglobin 13.7 g/dl (12.0-16.0); Imm Gran Abs Auto 0.03 X10*3/uL (0.00-0.03); Imm Gran Pct Auto 0.4 % (0.0-0.4); Lymphocytes Absolute Auto 1.7 X10*3/uL (1.2-4.9); Mean Corpuscular HGB Conc 32.2 g/dl (31.0-35.0); Mean Corpuscular Hemoglobin 29.9 pg (27.0-33.0); Mean Corpuscular Volume 92.8 fL (80.0-98.0); Mean Platelet Volume 10.9 fL (9.4-12.3); Monocytes Absolute Auto 0.5 X10*3/uL (0.1-1.2); Monocytes Percent Auto 7.3 % (2-11); Neutrophils Absolute Auto 4.5 x10*3/uL (2.0-8.3); Neutrophils Percent Auto 65.8 % (45-73); Platelet Count 272 X10*3/uL (160-400); Red Blood Count 4.58 X10*6/uL (4.20-5.50); Red Cell Distribution Width 13.3 % (11.0-16.0); White Blood Count 6.8 X10*3/uL (4.8-10.8)
[2022-03-02 12:18] LABS: Troponin-I High Sensitivity < 3.5 ng/L (<3.5-17.0)
[2022-03-02 12:24] LABS: Anion Gap 12 (12-20); Blood Urea Nitrogen 13 mg/dL (9-16); Calcium 9.7 mg/dL (8.4-10.2); Carbon Dioxide 24 mmol/L (22-29); Chloride 106 mmol/L (96-108); Creatinine Clr Calc Pharmacy 66.6; Estimated Glomerular Filt Rate > 60; Glucose Random 219 mg/dL (60-115); Potassium 4.3 mmol/L (3.3-5.1); Sodium 138 mmol/L (135-145)
--- NOTE | 2022-03-02 15:51 | ED_ITS ---
HPI - Chest Pain General Chief Complaint: Chest Pain Stated Complaint: chest pain, rapid breathing, high BP, high sugar Time Seen by Provider: 03/02/22 15:51 Source: patient Mode of arrival: ambulatory Limitations: no limitations History of Present Illness HPI narrative: Fluency of diabetes hypertension high cholesterol no known history of coronary disease does have history of anxiety notice pain in the left chest sharp with pressure lasting only for few seconds less than a minute yesterday afternoon no shortness of breath no abdominal pain no nausea no vomiting no radiation of pain patient did not have any chest pain since then today she came to check for the chest pain yesterday also patient noticed the blood sugar was high last night was 400. Patient is supposed to take metformin twice daily but she taking only once a day as she is afraid it may decrease the blood sugar Related Data Home Medications Medication Instructions Recorded Confirmed ascorbic acid (vitamin C) 500 mg 500 mg PO DAILY 09/24/21 02/12/22 tablet vitamin B complex 1 tab PO DAILY 09/24/21 02/12/22 metformin 500 mg tablet 500 mg PO DAILY tab 10/02/21 02/12/22 Previous Rx's Medication Instructions Recorded albuterol sulfate 90 mcg/actuation 2 puff INHALATION Q4-6H PRN 30 09/25/20 aerosol inhaler (ProAir HFA) Days #8.5 g blood sugar diagnostic (OneTouch #50 ea 10/04/20 Verio test strips) pantoprazole 40 mg tablet,delayed 40 mg PO DAILY 90 Days #90 tab 12/10/20 release levothyroxine 50 mcg tablet 50 mcg PO DAILY 90 Days #90 tab 01/27/21 blood sugar diagnostic (FreeStyle #100 ea 03/17/21 Test) lidocaine 5 %-phenylephrine 0.25 1 appl TOPICAL BID PRN #28 g 05/27/21 %-glycern 14.4 %-petrolatm 15 % cream (Preparation H Rapid Relief-Lidocaine) cane #1 ea 06/03/21 hand held showerhead #1 ea 06/03/21 cholecalciferol (vitamin D3) 25 25 mcg PO DAILY 90 Days #90 cap 10/02/21 mcg (1,000 unit) capsule simvastatin 40 mg tablet 40 mg PO DAILY 90 Days #90 tab 10/17/21 alendronate 70 mg tablet 70 mg PO QWEEK 90 Days #13 tab 11/26/21 lisinopril 10 mg tablet 10 mg PO DAILY 90 Days #90 tab 12/08/21 fluticasone propionate 44 2 puff INHALATION BID 30 Days 12/29/21 mcg/actuation HFA aerosol inhaler #10.6 g (Flovent HFA) aspirin 81 mg tablet,delayed 81 mg PO DAILY 30 Days #30 tab 01/04/22 release (Adult Aspirin Regimen) acyclovir 800 mg tablet 800 mg PO BID 7 Days #14 tab 02/10/22 zolpidem 10 mg tablet 10 mg PO BEDTIME PRN 30 Days #30 02/18/22 tab blood sugar diagnostic (OneTouch 1 strip MISCELLANEOUS BID 90 Days 02/19/22 Verio test strips) #100 strip Allergies Allergy/AdvReac Type Severity Reaction Status Date / Time No Known Allergies Allergy Verified 02/12/22 09:59 [No Known Allergies*] Review of Systems Review of Systems: Yes all other systems are reviewed and are negative [facility] Past Medical History Medical History Age related osteoporosis Asthma Autoimmune thyroiditis Depression Diabetes Dyslipidemia Dysphagia GERD (gastroesophageal reflux disease) Hypercalcemia Hyperlipidemia LDL goal <70 Insomnia Left leg pain Moderate asthma Multinodular thyroid Obesity (BMI 30-39.9) Osteoarthritis Thyroid nodule Surgical History History of laparoscopic cholecystectomy Hx of appendectomy Hx of colonoscopy Hx of tubal ligation Hx of wisdom tooth extraction Family History Family History Father Edema Mother Diabetes CVA (cerebral vascular accident) Hypertension Social History Social History Household Members: None Housing: Apartment Alcohol intake: never Patient Tobacco Use Status: Never used Tobacco e-Cigarette/Vaping Use: Never Used Second Hand Smoke Exposure: No Advance Directives Date on File: 08/15/20 service: No Current occupational status: disabled Cognitive needs: No Hearing needs: No Vision needs: Yes Physical Exam Vital Signs: Vital Signs: Last Vital Signs Temp 98 F 03/02/22 16:14 Pulse 75 03/02/22 16:14 Resp 18 03/02/22 16:14 BP 126/64 03/02/22 16:14 Pulse Ox 100 03/02/22 16:34 BMI result Body Mass Index 28.3 Appearance: Alert. Oriented X3. No acute distress. Eyes: No pallor or icterus ENT: Pharynx normal. Oral Mucosa moist Neck: Normal inspection. Neck supple. CVS: Normal heart rate and rhythm. Pulses normal. Respiratory: No respiratory distress. Equal air entry bilateral, no wheezing/rales/rhonchi Abdomen: Soft and nontender. Bowel sounds are present, no mass palpable, no CVA tenderness Skin: Skin warm and dry. Normal skin color. Normal skin turgor. Extremities: No lower extremity edema. No calf tenderness Neuro: Oriented X 3. MDM - Chest Pain MDM Narrative Medical decision making narrative: Pain atypical chest pain normal EKG normal troponin had stress test and echo 02/19 which was negative. Will discharge patient home advised to follow up with structural design engineer/PCP patient does take baby aspirin daily will continue same advised to take metformin 500 mg twice daily instead of once Medical Records Data Attestation: I reviewed the patient's medical records. Lab Data Attestation: I reviewed the patient's lab results. Result diagrams: 03/02/22 11:51 03/02/22 11:51 Labs: Lab Results 03/02/22 03/02/22 03/02/22 Range/Units 11:51 11:51 11:51 WBC 6.8 (4.8-10.8) X10*3/uL RBC 4.58 (4.20-5.50) X10*6/uL Hgb 13.7 (12.0-16.0) g/dl Hct 42.5 (37.0-47.0) % MCV 92.8 (80.0-98.0) fL MCH 29.9 (27.0-33.0) pg MCHC 32.2 (31.0-35.0) g/dl RDW 13.3 (11.0-16.0) % Plt Count 272 (160-400) X10*3/uL MPV 10.9 (9.4-12.3) fL Immature Gran % (Auto) 0.4 (0.0-0.4) % Neut % (Auto) 65.8 (45-73) % Lymph % (Auto) 25.0 (20-40) % [place] % (Auto) 7.3 (2-11) % Eos % (Auto) 1.2 (0-4) % Baso % (Auto) 0.3 (0-2) % Lymph # (Auto) 1.7 (1.2-4.9) X10*3/uL [place] # (Auto) 0.5 (0.1-1.2) X10*3/uL Eos # (Auto) 0.1 (0.0-0.4) X10*3/uL Baso # (Auto) 0.0 (0.0-0.2) X10*3/uL Abs Immat Gran (auto) 0.03 (0.00-0.03) X10*3/uL Absolute Neuts (auto) 4.5 (2.0-8.3) x10*3/uL Absolute Nucleated RBC 0.000 (0.0-0.012) X10*3/uL Nucleated RBC % (auto) 0.0 (0.0-0.2) /100WBC Sodium 138 (135-145) mmol/L Potassium 4.3 (3.3-5.1) mmol/L Chloride 106 (96-108) mmol/L Carbon Dioxide 24 (22-29) mmol/L Anion Gap 12 (12-20) BUN 13 (9-16) mg/dL Creatinine 0.76 (0.5-1.4) mg/dL Estim Creat Clear Calc 66.6 Estimated GFR > 60 Random Glucose 219 H (60-115) mg/dL Calcium 9.7 (8.4-10.2) mg/dL Troponin I High Sens < 3.5 (<3.5-17.0) ng/L ECG Data ECG #1: Attestation: I personally reviewed and interpreted this ECG as follows: Interpretation: Normal sinus rhythm heart rate 73 beats per minute normal interval normal axis no acute ST changes impression normal EKG Discharge Plan Discharge Clinical Impression: Chest pain Patient Disposition: Home, Self-Care Instructions: Chest Pain (ED), Diabetic Hyperglycemia (ED) Additional Instructions: Take your metformin 500 mg twice daily as prescribed Follow with PCP for further workup including stressed Continue to take baby aspirin daily Prescriptions: No Action albuterol sulfate [ProAir HFA] 90 mcg/actuation HFA aerosol inhaler 2 puff inhalation Q4-6H PRN (Reason: bronchospasm) 30 Days Qty: 8.5 6RF (DME) OneTouch Verio test strips Strip See Rx Instructions .ROUTE .MEDSUPPLY Qty: 50 11RF Rx Instructions: As directed twice a day pantoprazole 40 mg tablet,delayed release (DR/EC) 40 mg PO DAILY 90 Days Qty: 90 3RF levothyroxine 50 mcg tablet 50 mcg PO DAILY 90 Days Qty: 90 3RF (DME) FreeStyle Test Strip See Rx Instructions .ROUTE .MEDSUPPLY Qty: 100 3RF Rx Instructions: TEST 1-2 DAILY (DME) hand held showerhead See Rx Instructions .Route .MEDSUPPLY Qty: 1 0RF Rx Instructions: As directed (DME) cane Device See Rx Instructions .Route Qty: 1 0RF Rx Instructions: As directed simvastatin 40 mg tablet 40 mg PO DAILY 90 Days Qty: 90 3RF alendronate 70 mg tablet 70 mg PO QWEEK 90 Days Qty: 13 1RF lisinopril 10 mg tablet 10 mg PO DAILY 90 Days Qty: 90 3RF Flovent HFA 44 mcg/actuation HFA aerosol inhaler 2 puff inhalation BID 30 Days Qty: 10.6 2RF Rx Instructions: administer with spacer aspirin [Adult Aspirin Regimen] 81 mg tablet,delayed release (DR/EC) 81 mg PO DAILY 30 Days Qty: 30 11RF acyclovir 800 mg tablet 800 mg PO BID 7 Days Qty: 14 1RF zolpidem 10 mg tablet 10 mg PO BEDTIME PRN (Reason: insomnia) 30 Days Qty: 30 0RF OneTouch Verio test strips Strip 1 strip miscellaneous BID 90 Days Qty: 100 3RF Preparation H Rapid Rlf-Lidocn 5-0.25-14.4-15 % cream 1 appl topical BID PRN (Reason: rectal discomfort) Qty: 28 0RF metformin 500 mg tablet 500 mg PO DAILY 0RF cholecalciferol (vitamin D3) 25 mcg (1,000 unit) capsule 25 mcg PO DAILY 90 Days Qty: 90 1RF vitamin B complex Tablet 1 tab PO DAILY 0RF ascorbic acid (vitamin C) 500 mg tablet 500 mg PO DAILY 0RF
[2022-03-02 16:14] VITALS: BP 126/64; PULSE 75; RESP 18; TEMP 36.6
[2022-03-02 16:34] VITALS: O2SAT 100
== END 2022-03-02 16:49 | disposition home or self-care (01) ==
LOC: HO.ED 16:42
PROVIDERS: Emergency Provider Internal Medicine; PCP Internal Medicine
DX: R07.89 Other chest pain (principal); Z79.899 Other long term (current) drug therapy
CPT/HCPCS: 36415; 80048; 84484; 85025; 93005; 99283; 99284

== ENCOUNTER 2022-03-27 08:26 | Outpatient (REF) | payer OTHER, SELFPAY ==
--- NOTE | ~2022-03-27 | FL_ITS ---
EXAMINATION: FL BARIUM SWALLOW CLINICAL INFORMATION: Dysphagia with solids and liquids. COMPARISON: None TECHNIQUE: Barium swallow examination is performed using fluoroscopic evaluation in addition to multiple fluoroscopic spot views. The patient is imaged both upright and prone and using both thick and thin sulfate along with effervescent granules. Fluoroscopy time: 1.2 minutes DAP: 9.129 Gycm2 Images: 54 FINDINGS: Following oral administration of barium and barium tablet, there is slow propagation of bolus from the oral cavity through the pharynx, esophagus into stomach. No obstruction or narrowing seen. No laryngeal penetration or aspiration. No retention in valleculae or piriform sinuses. On oral administration of barium coated turkey, there is slow mastication with slow propagation of bolus from the oral cavity through the pharynx, esophagus into stomach without obstruction or narrowing. On oral administration of barium tablet, there is spontaneous passage from the oral cavity through the esophagus into stomach without obstruction. No gastroesophageal reflux seen in the upright view. There is no evidence of hiatal hernia. FL/FL barium swallow IMPRESSION: Slow propagation of bolus from the oral cavity into the pharynx and esophagus and eventually into stomach but no obstruction, narrowing or stricture. No laryngeal penetration or aspiration. No retention of barium in the valleculae or piriform sinuses.
== END 2022-03-27 08:27 | disposition home or self-care (01) ==
LOC: HO.XRAY 08:26
PROVIDERS: Visit Provider Internal Medicine
DX: R13.10 Dysphagia, unspecified (principal)
CPT/HCPCS: 74220

== ENCOUNTER 2022-05-19 14:19 | Outpatient (REF) | payer OTHER, SELFPAY ==
[2022-05-20 09:28] LABS: BV Int Neg Control Negative (Negative); BV Int Pos Control Positive (Positive)
== END 2022-05-19 14:20 | disposition home or self-care (01) ==
LOC: HO.LAB 14:19
PROVIDERS: Visit Provider Obstetrics & Gynecology
DX: L29.2 Pruritus vulvae (principal)
CPT/HCPCS: 87480; 87510; 87660; 99212

== ENCOUNTER → 2022-06-17 11:21 | Outpatient (BNVA) | payer OTHER, SELFPAY | PROVIDERS: PCP Internal Medicine; Visit Provider Obstetrics & Gynecology | DX: L29.2 Pruritus vulvae (principal) | CPT/HCPCS: 99212 ==

== ENCOUNTER 2022-06-24 09:42 | Outpatient (REF) | payer OTHER, SELFPAY ==
--- NOTE | 2022-06-24 09:55 | P.BOP_ITS ---
Brief Operative Note Date of Service: 06/24/22 Pre-op diagnosis: Thyroid Nodule Procedure: EXAMINATION: US THYROID CLINICAL INFORMATION: Multinodular Thyroid COMPARISON: Prior TECHNIQUE: Linear transducer jacobs-scale and color Doppler examination with attention to the region of the thyroid. FINDINGS: SIZE: Measurements of the thyroid lobes and nodules are given in sagittal, anteroposterior and transverse dimensions respectively. Right Thyroid Lobe: 3.39 x 1.47 x 1.19 cm, volume 3.1 mL. Parenchyma: The gland echotexture is heterogenous. Thyroid vascularity is normal. Left Thyroid Lobe: 3.22 x 1.18 x 1.08 cm, volume 2.16 mL. Parenchyma: The gland echotexture is heterogenous. Thyroid vascularity is normal. No nodules are seen in either lobe of the thyroid. NODES: No lymph nodes were assessed. 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 Surgeon: Esther Portillo, DO Was an Production Material Handler used for this Procedure?: No Estimated blood loss (mL): 0
== END 2022-06-24 09:43 | disposition home or self-care (01) ==
LOC: HO.US 09:42
PROVIDERS: Visit Provider Internal Medicine
DX: E04.2 Nontoxic multinodular goiter (principal)
CPT/HCPCS: 76536

== ENCOUNTER 2022-10-14 09:45 | Outpatient (REF) | payer OTHER, SELFPAY ==
[2022-10-14 10:05] LABS: MANUAL DIFF FLAG NO
[2022-10-14 10:20] LABS: Basophils Percent Auto 0.2 % (0-2); Eosinophils Absolute Auto 0.1 X10*3/uL (0.0-0.4); Eosinophils Percent Auto 1.2 % (0-4); Hematocrit 43.9 % (37.0-47.0); Hemoglobin 14.2 g/dl (12.0-16.0); Imm Gran Abs Auto 0.02 X10*3/uL (0.00-0.03); Imm Gran Pct Auto 0.2 % (0.0-0.4); Lymphocytes Percent Auto 24.5 % (20-40); Mean Corpuscular HGB Conc 32.3 g/dl (31.0-35.0); Mean Corpuscular Volume 92.8 fL (80.0-98.0); Mean Platelet Volume 10.6 fL (9.4-12.3); Monocytes Absolute Auto 0.6 X10*3/uL (0.1-1.2); Monocytes Percent Auto 6.9 % (2-11); Neutrophils Absolute Auto 5.5 x10*3/uL (2.0-8.3); Platelet Count 269 X10*3/uL (160-400); Red Blood Count 4.73 X10*6/uL (4.20-5.50); Red Cell Distribution Width 13.4 % (11.0-16.0); White Blood Count 8.3 X10*3/uL (4.8-10.8)
[2022-10-14 11:14] LABS: Creatinine Urine 112.36 mg/dL; Microalbum/Creatinine Ratio Ur 5.3 ug/mg cr
[2022-10-14 16:46] LABS: Alanine Aminotransferase 21 U/L (0-31); Albumin Level 4.6 g/dL (3.5-5.0); Alkaline Phosphatase 80 U/L (39-117); Anion Gap 15 (12-20); Aspartate Amino Transferase 16 U/L (5-31); Bilirubin Total 0.4 mg/dL (0.0-1.0); Blood Urea Nitrogen 14 mg/dL (9-16); Calcium 10.4 mg/dL (8.4-10.2); Carbon Dioxide 29 mmol/L (22-29); Chloride 104 mmol/L (96-108); Cholesterol 131 mg/dL; Estimated Glomerular Filt Rate > 60; Glucose Fasting 176 mg/dL (60-99); HDL Cholesterol 53 mg/dL; LDL Cholesterol Calculated 63 mg/dl; Potassium 4.5 mmol/L (3.3-5.1); Sodium 143 mmol/L (135-145); Thyroid Stimulating Hormone 2.04 uIU/mL (0.32-4.0); Total Protein 7.4 g/dL (6.5-8.0); Triglycerides 75 mg/dL; Vitamin D 25-OH Total 49.4 ng/mL (>30)
[2022-10-15 15:24] LABS: Calcium (PTHI) 10.2 mg/dL (8.6-10.4); PTHI 51 pg/mL (16-77)
[2022-10-16 13:13] LABS: Calcium, Ionized 5.6 mg/dL (4.8-5.6)
== END 2022-10-14 09:46 | disposition home or self-care (01) ==
LOC: HO.LAB 09:45
PROVIDERS: PCP Internal Medicine; Visit Provider Internal Medicine
DX: R07.89 Other chest pain (principal); E83.52 Hypercalcemia; E04.2 Nontoxic multinodular goiter; E78.5 Hyperlipidemia, unspecified; E11.8 Type 2 diabetes mellitus with unspecified complications
CPT/HCPCS: 36415; 80053; 80061; 82043; 82306; 82310; 82330; 83970; 84443; 85025

== ENCOUNTER 2023-02-23 08:19 | Outpatient (REF) | payer OTHER, SELFPAY ==
[2023-02-23 09:36] LABS: Alanine Aminotransferase 22 U/L (0-31); Albumin Level 4.5 g/dL (3.5-5.0); Alkaline Phosphatase 84 U/L (39-117); Anion Gap 13 (12-20); Aspartate Amino Transferase 18 U/L (5-31); Bilirubin Total 0.7 mg/dL (0.0-1.0); Blood Urea Nitrogen 15 mg/dL (9-16); Calcium 9.9 mg/dL (8.4-10.2); Carbon Dioxide 28 mmol/L (22-29); Chloride 104 mmol/L (96-108); Cholesterol 176 mg/dL; Estimated Glomerular Filt Rate > 60; Glucose Fasting 194 mg/dL (60-99); HDL Cholesterol 52 mg/dL; LDL Cholesterol Calculated 105 mg/dl; Potassium 4.5 mmol/L (3.3-5.1); Sodium 140 mmol/L (135-145); Total Protein 7.4 g/dL (6.5-8.0); Triglycerides 99 mg/dL
[2023-02-23 09:51] LABS: Vitamin D 25-OH Total 49.2 ng/mL (>30)
[2023-02-23 11:18] LABS: Creatinine Urine 140.22 mg/dL; Microalbum/Creatinine Ratio Ur 6.4 ug/mg cr
== END 2023-02-23 08:20 | disposition home or self-care (01) ==
LOC: HO.LAB 08:19
PROVIDERS: PCP Internal Medicine; Visit Provider Internal Medicine
DX: E78.5 Hyperlipidemia, unspecified (principal); E55.9 Vitamin D deficiency, unspecified; E11.9 Type 2 diabetes mellitus without complications
CPT/HCPCS: 36415; 80053; 80061; 82043; 82306

== ENCOUNTER 2023-03-26 10:24 | Outpatient (REF) | payer OTHER, SELFPAY ==
--- NOTE | ~2023-03-26 | XR_ITS ---
EXAMINATION: XR KNEE, RIGHT XR KNEE, LEFT CLINICAL INFORMATION: Knee pain. No known injury. COMPARISON: Left knee radiographs 08/30/2019. TECHNIQUE: Each knee is imaged in 4 views, including AP projections with weightbearing. There are a total of 8 views. FINDINGS: Right: No fracture, dislocation, destructive process, or suprapatellar effusion. Hoffa's fat pad appears normal. There is a borderline central osteophyte mid medial femoral condyle. No knee compartment joint narrowing or subchondral sclerosis or chondrocalcinosis. There is spurring at the quadriceps insertion right patella. There is borderline lateralization patella on axial view. No visible patellar tilting. Left: No fracture, dislocation, destructive process, or suprapatellar effusion. Hoffa's fat pad appears normal. There is a new borderline central osteophyte mid lateral femoral condyle. No knee compartment joint narrowing or subchondral sclerosis or chondrocalcinosis. There is spurring at the quadriceps insertion right patella. There is borderline lateralization patella on axial view. No visible patellar tilting. There is a new 1.1 cm benign-appearing ossification posterior soft tissues, possibly loose body. XR/XR knee RT 3V IMPRESSION: - Right: - Spurring at quadriceps insertion patella. Borderline lateralization patella. - No knee compartment joint narrowing or subchondral sclerosis. No effusion. Left: - Spurring at quadriceps insertion patella. Borderline lateralization patella. - No knee compartment joint narrowing or subchondral sclerosis. No effusion. - New 1.1 cm benign-appearing ossification posterior soft tissues, possibly loose body.
--- NOTE | ~2023-03-26 | XR_ITS ---
EXAMINATION: XR KNEE, RIGHT XR KNEE, LEFT CLINICAL INFORMATION: Knee pain. No known injury. COMPARISON: Left knee radiographs 08/30/2019. TECHNIQUE: Each knee is imaged in 4 views, including AP projections with weightbearing. There are a total of 8 views. FINDINGS: Right: No fracture, dislocation, destructive process, or suprapatellar effusion. Hoffa's fat pad appears normal. There is a borderline central osteophyte mid medial femoral condyle. No knee compartment joint narrowing or subchondral sclerosis or chondrocalcinosis. There is spurring at the quadriceps insertion right patella. There is borderline lateralization patella on axial view. No visible patellar tilting. Left: No fracture, dislocation, destructive process, or suprapatellar effusion. Hoffa's fat pad appears normal. There is a new borderline central osteophyte mid lateral femoral condyle. No knee compartment joint narrowing or subchondral sclerosis or chondrocalcinosis. There is spurring at the quadriceps insertion right patella. There is borderline lateralization patella on axial view. No visible patellar tilting. There is a new 1.1 cm benign-appearing ossification posterior soft tissues, possibly loose body. XR/XR knee LT 3V IMPRESSION: - Right: - Spurring at quadriceps insertion patella. Borderline lateralization patella. - No knee compartment joint narrowing or subchondral sclerosis. No effusion. Left: - Spurring at quadriceps insertion patella. Borderline lateralization patella. - No knee compartment joint narrowing or subchondral sclerosis. No effusion. - New 1.1 cm benign-appearing ossification posterior soft tissues, possibly loose body.
== END 2023-03-26 10:25 | disposition home or self-care (01) ==
LOC: HO.XRAY 10:24
PROVIDERS: PCP Internal Medicine; Visit Provider Nurse Practitioner Family
DX: M25.561 Pain in right knee (principal); M25.562 Pain in left knee
CPT/HCPCS: 73562

== ENCOUNTER 2023-06-25 09:46 | Outpatient (AMB) | payer OTHER, SELFPAY ==
--- NOTE | 2023-06-25 10:03 | A.OFFVIS_ITS ---
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 Left knee is more painful than the right. She explains that the knees are clicking and giving out on her. Takes tylenol and utilizes rest which helps. 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 She complains of painful clicking, grinding, catching, and swelling in her knee when walking. She says her symptoms have improved recently and she denies any pain today She complains of pain in her right elbow particularly when picking up objects. She takes Tylenol, with some relief, and denies any other treatment. She is a Diabetic and has a hx of polyarthralgia. [facility] Medical History Age related osteoporosis Asthma Autoimmune thyroiditis Depression Diabetes Dyslipidemia Dysphagia GERD (gastroesophageal reflux disease) Hypercalcemia Hyperlipidemia LDL goal <70 Insomnia Left leg pain Moderate asthma Multinodular thyroid Obesity (BMI 30-39.9) Osteoarthritis Thyroid nodule Surgical History History of laparoscopic cholecystectomy Hx of appendectomy Hx of colonoscopy Hx of tubal ligation Hx of wisdom tooth extraction Family History Father Edema Mother Diabetes CVA (cerebral vascular accident) Hypertension Social History Household Members: None Housing: Apartment Alcohol intake: never Patient Tobacco Use Status: Never used Tobacco e-Cigarette/Vaping Use: Never Used Second Hand Smoke Exposure: No Advance Directives Date on File: 08/15/20 service: No Current occupational status: disabled Cognitive needs: No Hearing needs: No Vision needs: Yes Female Reproductive History Menstrual Age of Menarche: 15 Review of Systems Const All systems reviewed & are unremarkable except as noted in HPI and below Physical Exam Vital Signs: BMI result Body Mass Index 28.7 Const General: no acute distress, alert and awake Orientation/consciousness: patient oriented x3 HEENT Head: Yes normocephalic and Yes atraumatic Eyes EOM: EOMs intact bilaterally Resp Effort & Inspection: normal respiratory effort and able to speak in complete sentences Cardio Jugular venous distension: no JVD Skin General skin exam: turgor normal Rashes: no rashes Neuro General: patient oriented x3 Extrem Other: Left Knee: Trace effusion Full ROM TTP medial compartment & joint line Right Elbow: + Dynamic resisted extension test Tenderness over lateral epicondyle Psych Appearance: grossly normal Affect: normal affect Attitude: cooperative Results Reviewed Results Reviewed: I personally reviewed relevant radiographs. Spurring at quadriceps insertion patella. Borderline lateralization patella. No knee compartment joint narrowing or subchondral sclerosis. No effusion. New 1.1 cm benign-appearing ossification posterior soft tissues, possibly loose body in left knee Assessment & Plan Assessment & Plan (1) Left knee pain: Code(s): M25.562 - Pain in left knee Plan: This is a 72 year old woman with left knee pain. She has painful grinding, swelling and crepitus with ambulation, but says her knee pain is improved at this time. She denies any prior treatment, and ambulates with an assistive cane. I discussed her diagnosis and treatment options. No acute intervention warranted. She was fitted for a knee brace to wear with ambulation. She can follow up prn (2) Right lateral epicondylitis: Code(s): M77.11 - Lateral epicondylitis, right elbow Plan: Pain in right elbow with lifting activities. Declined injections today. She was fitted for a counter force brace to wear with daily activity. She can follow up prn. Plan Scribed for Jason Orellana MD by Dung Akins, caregivers non medical, on 06/25/23 at 10:45 PM, EST. Coding Level of Care Code Est Pt Level 4 (14734) Diagnoses Left knee pain M25.562 Right lateral epicondylitis M77.11
[2023-06-25 10:06] VITALS: BMI 28.7
== END 2023-06-25 11:58 | disposition home or self-care (01) ==
PROVIDERS: PCP Internal Medicine; Visit Provider Orthopaedic Surgery
DX: M25.562 Pain in left knee (principal); M77.11 Lateral epicondylitis, right elbow
CPT/HCPCS: 99213

== ENCOUNTER → 2023-06-25 09:46 | Outpatient (BNVA) | payer OTHER, SELFPAY | PROVIDERS: PCP Internal Medicine; Visit Provider Orthopaedic Surgery ==

== ENCOUNTER 2023-07-12 09:51 | Outpatient (AMB) | payer OTHER, SELFPAY ==
--- NOTE | 2023-07-12 09:55 | A.OFFPC_ITS ---
Vital Signs 07/12/23 10:05 Height 5 ft 3 in Weight 153 lb BMI 27.1 BP 110/80 Blood Pressure Location Lt brachial Position Sitting Intake Visit Reasons: Annual Exam Intake Note: Patient here for a physical exam Economic Development Manager Required: No Accompanied by: HOISTING PILE DRIVING ENGINEER Allergies No Known Allergies [No Known Allergies*] Allergy (Verified 07/12/23 10:14) Medication List - Last Reconciled 07/12/23 by Karo Arenas MD acyclovir 800 mg PO BID 7 days albuterol sulfate 90 mcg/actuation (ProAir HFA) 2 puffs inhalation Q4-6H PRN 30 days alendronate 70 mg PO QWEEK 90 days ascorbic acid (vitamin C) 500 mg PO DAILY aspirin (Adult Aspirin Regimen) 81 mg PO DAILY 30 days blood sugar diagnostic (OneTouch Verio test strips) As directed twice a day blood sugar diagnostic (OneTouch Verio test strips) 1 strip miscellaneous BID 90 days blood-glucose meter (SCADA Access Verio Flex Meter) As directed cane As directed cholecalciferol (vitamin D3) 25 mcg PO DAILY 90 days fluticasone propionate 44 mcg/actuation (Flovent HFA) 2 puffs inhalation BID 30 days ibuprofen 600 mg PO Q8H PRN 30 days levothyroxine 50 mcg PO DAILY 90 days lidocaine 4% (Aspercreme (lidocaine)) 1 patch topical DAILY PRN [id number]-[id number]-ytxqoo-petrol 5-0.25-14.4-15 % (Preparation H Rapid Relief- Lidocaine) 1 appl topical BID PRN lisinopril 10 mg PO DAILY 90 days metformin 500 mg PO BID 90 days pantoprazole 40 mg PO DAILY 90 days sertraline 25 mg PO DAILY 90 days simvastatin 40 mg PO BEDTIME vitamin B complex 1 tab PO DAILY zolpidem 10 mg PO BEDTIME PRN 30 days Tobacco use date assessed: 03/05/23 Fall risk assessment: No Falls in past year Last assessed Fall Risk: 07/12/23 Dental Screening Dental Screen Date: 07/12/23 Did you have a dental visit in the last 12 months?: No Did you have a dental problem in the last 6 months where you did not have access to dental care?: No Was dental information given to patient?: Patient has dentist HPI HPI Comments History of Present Illness Details This is a 73-year-old female with mild major depression and diabetes mellitus type 2 that comes for her physical exam accompanied by HOISTING PILE DRIVING ENGINEER. Depression stable with sertraline. A1c within goal. Lipid panel will be order and her LDL goal should be less than 70. Blood pressure stable. She said that last mammogram was year 2022 and was in [place]. She has a was normal. Last colonoscopy was 2019 showing tubular adenoma in which requires screening from 3- 5 years. I will refer her next year. No chest pain or shortness of breath. Complains of cognitive impairment not remembering things I will refer her to Neurology and order some blood work as well as MRI of the brain. [facility] Medical History (Updated 07/12/23 @ 10:31 by Karo Arenas MD) Hypercalcemia Dysphagia Hyperlipidemia LDL goal <70 Moderate asthma Age related osteoporosis Multinodular thyroid Left leg pain Diabetes Autoimmune thyroiditis Obesity (BMI 30-39.9) GERD (gastroesophageal reflux disease) Asthma Osteoarthritis Depression Dyslipidemia Thyroid nodule Insomnia Surgical History History of laparoscopic cholecystectomy Hx of colonoscopy Hx of wisdom tooth extraction Hx of tubal ligation Hx of appendectomy Family History Father Edema Mother Diabetes CVA (cerebral vascular accident) Hypertension Social History Household Members: None Housing: Apartment Alcohol intake: never Patient Tobacco Use Status: Never used Tobacco e-Cigarette/Vaping Use: Never Used Second Hand Smoke Exposure: No Advance Directives Date on File: 08/15/20 service: No Current occupational status: disabled Cognitive needs: No Hearing needs: No Vision needs: Yes Female Reproductive History Menstrual Age of Menarche: 15 Questionnaire Thrive Questionnaire Date Thrive assessed: 03/05/23 LIZZETTE-7 AMB Questionnaire LIZZETTE-7 Date LIZZETTE - 7 assessed: 06/03/22 Source: Developed by Drs. Wilbert Garcia, Mary Vera, Dimitry Church and colleagues, with an educational amairani from [email or web address]. Review of Systems Const All systems reviewed & are unremarkable except as noted in HPI and below Eyes Reports no additional complaints, Denies change in vision and Denies other visual disturbances Card Denies chest pain at rest, Denies chest pain with activity, Denies edema, Denies irregular heart rhythm, Denies claudication, Denies dyspnea, Denies dyspnea on exertion, Denies orthopnea, Denies paroxysmal nocturnal dyspnea and Denies slow heart rate Resp Denies cough, Denies dyspnea and Denies dyspnea on exertion GI Denies abdominal pain, Denies change in bowel habits, Denies excessive flatus, Denies nausea and Denies vomiting Denies urinary incontinence, Denies urinary hesitancy and Denies urinary urgency Musc Denies abnormal gait, Denies atrophy, Denies deformity and Denies limited range of motion Skin/Breast Denies bleeding lesions, Denies changing lesions and Denies rash Neuro Denies abnormal gait and Denies lack of coordination Physical exam (Primary Care) Vital Signs: Last Vital Signs BP 110/80 07/12/23 10:05 BMI result Body Mass Index 27.1 Tobacco/Smoking Status: Tobacco use Status Tobacco use date assessed 03/05/23 07/12/23 09:56 Patient Tobacco Use Status Never used Tobacco 07/12/23 09:56 e-Cigarette/Vaping Use Never Used 07/12/23 09:56 Thrive Assessment: Date of Thrive Assessment Date Thrive assessed 03/05/23 07/12/23 09:56 Const Orientation/consciousness: patient oriented x3 HENMT Head: Yes normal to inspection, Yes normocephalic and Yes atraumatic Ears: external ears normal Eyes General: appearance normal, both eyes and all related structures Eyelids: Yes eyelids normal Conjunctivae: conjunctivae normal Neck Neck: Yes normal visual inspection and Yes supple Resp Effort & Inspection: normal respiratory effort Auscultation: clear to auscultation bilaterally Cardio Jugular venous distension: no JVD Rate: regular rate Rhythm: regular rhythm Heart sounds: S1 normal heart sound present and S2 normal heart sound present GI Inspection: Yes normal to inspection Palpation (GI): Soft to palpation and nontender Auscultation: normal bowel sounds Skin General skin exam: no rashes or lesions noted Neuro General: patient oriented x3 and no focal motor deficits Extrem General: Yes full ROM Psych Appearance: grossly normal Results AMB Hemoglobin A1c AMB Hemoglobin A1c 6.4 % Last Edit by JOSE Griffith on 07/12/23 10:1 4 Assessment and Plan Assessment & Plan (1) Physical exam: Code(s): Z00.00 - Encounter for general adult medical examination without abnormal findings Plan: Repeat in a year. (2) Mild recurrent major depression: Code(s): F33.0 - Major depressive disorder, recurrent, mild Plan: Continue sertraline (3) Type 2 diabetes mellitus with unspecified complications: Code(s): E11.8 - Type 2 diabetes mellitus with unspecified complications Plan: Continue metformin. A1c goal is equal or less than 7%. Orders: Orders Vitamin D 25-OH Total Today E55.9 - Vitamin D deficiency, unspecified Vitamin B12 and Folate Today E53.8 - Deficiency of other specified B group vitamins Comprehensive [place]. Panel Fast Today E11.8 - Type 2 diabetes mellitus with unspecified complications Thyroid Stimulating Hormone Today E06.3 - Autoimmune thyroiditis MR head/brain w con Today R41.89 - Other symptoms and signs involving cognitive functions and awareness AMB Hemoglobin A1c Today E11.8 - Type 2 diabetes mellitus with unspecified complications Lipid Panel Today E78.5 - Hyperlipidemia, unspecified Microalbumin, Random (w Creat) Today E11.9 - Type 2 diabetes mellitus without complications Syphilis Screen Today R41.89 - Other symptoms and signs involving cognitive functions and awareness Complete Blood Count Auto Diff Today R41.89 - Other symptoms and signs involving cognitive functions and awareness Referrals Neurology Referral R41.89 - Other symptoms and signs involving cognitive functions and awareness Coding Level of Care Code Est Pt Prev Care >65y(02853) Diagnoses Physical exam Z00.00 Mild recurrent major depression F33.0 Type 2 diabetes mellitus with unspecified complications E11.8 Time Spent (min) 33
[2023-07-12 10:05] VITALS: BP 110/80; BMI 27.1
== END 2023-07-12 10:29 | disposition home or self-care (01) ==
PROVIDERS: PCP Internal Medicine; Visit Provider Internal Medicine
DX: Z00.00 Encounter for general adult medical examination without abnormal findings (principal); F33.0 Major depressive disorder, recurrent, mild; E11.8 Type 2 diabetes mellitus with unspecified complications
CPT/HCPCS: 83036; 99397

== ENCOUNTER 2023-07-16 04:49 | Emergency (ER) | payer OTHER, SELFPAY ==
--- NOTE | ~2023-07-16 | XR_ITS ---
EXAMINATION: XR KNEE, LEFT CLINICAL INFORMATION: Pain COMPARISON: None available. TECHNIQUE: Four views of the left knee. FINDINGS: No fracture or joint effusion. Alignment is anatomic. Joint spaces are maintained. There is a 1.5 cm popliteal calcification. XR/XR knee LT 2V IMPRESSION: No significant osseous abnormality identified. No joint effusion.
[2023-07-16 04:52] VITALS: BP 140/86; PULSE 88; O2SAT 99
[2023-07-16 05:07] VITALS: BP 137/91; BP 140/80; PULSE 77; PULSE 88; RESP 18; TEMP 36.7; O2SAT 98; BMI 31.0
--- NOTE | 2023-07-16 05:34 | PC.NURSE ---
pt a&o, changed over, provider into assess pt. pt assist to bedside commode. Will continue to moniotr.
[2023-07-16] MEDS: Ketorolac Tromethamine 30 MG/ML VIAL IM (05:42)
[2023-07-16 05:56] LABS: Hematocrit 41.7 % (37.0-47.0); Hemoglobin 13.9 g/dl (12.0-16.0); Mean Corpuscular HGB Conc 33.3 g/dl (31.0-35.0); Mean Corpuscular Hemoglobin 30.5 pg (27.0-33.0); Mean Corpuscular Volume 91.4 fL (80.0-98.0); Mean Platelet Volume 10.7 fL (9.4-12.3); Platelet Count 241 X10*3/uL (160-400); Red Blood Count 4.56 X10*6/uL (4.20-5.50); Red Cell Distribution Width 13.2 % (11.0-16.0)
[2023-07-16 06:14] LABS: Alanine Aminotransferase 15 U/L (0-31); Albumin Level 4.4 g/dL (3.5-5.0); Alkaline Phosphatase 76 U/L (39-117); Anion Gap 11 (12-20); Aspartate Amino Transferase 15 U/L (5-31); Bilirubin Total 0.2 mg/dL (0.0-1.0); Blood Urea Nitrogen 12 mg/dL (9-16); Carbon Dioxide 25 mmol/L (22-29); Chloride 110 mmol/L (96-108); Creatinine Clr Calc Pharmacy 69.7; Estimated Glomerular Filt Rate > 60; Glucose Random 155 mg/dL (60-115); Potassium 4.3 mmol/L (3.3-5.1); Sodium 142 mmol/L (135-145); Total Protein 7.5 g/dL (6.5-8.0)
--- NOTE | 2023-07-16 06:22 | PC.NURSE ---
pt reports some pain relief.
--- NOTE | 2023-07-16 06:26 | ED_ITS ---
HPI - Extremity Injury (Lower) General Chief Complaint: Extremity Injury, Lower Stated Complaint: LEFT LEG PAIN Time Seen by Provider: 07/16/23 05:15 Source: patient Mode of arrival: EMS Limitations: no limitations and language barrier (Patient is Citizen [place]-speaking only, ferry operator used) History of Present Illness HPI Narrative: 73-year-old female who presents emergency department for evaluation of left knee and left thigh pain. Patient states she does have arthritis of her knees and she has been having pain in her left knee for several months. She states that over the past week the pain is become more severe. She points to her left knee when asked to localize the pain, she states the pain is a constant, throbbing/aching pain. She has been taking Tylenol intermittently over the past 2-3 days with only minimal relief of the pain. She states she was taking ibuprofen in the past but the pill is too big to swallow and she stop taking ibuprofen. She states that the pain became worse this morning at around 02:30 hours. She took Tylenol with no relief. She was unable sleep therefore she called an ambulance and came to the emergency department for evaluation. At the time my evaluation she states that the a left knee pain is a constant, throbbing pain is 8/10. Patient denies any injury. She denied systemic symptoms such as fever, chills, chest pain, shortness of breath, cough, abdominal pain, frequency, urgency or dysuria. She states she has occasional nausea secondary to the severity of the pain. Related Data Home Medications Medication Instructions Recorded Confirmed ascorbic acid (vitamin C) 500 mg 500 mg PO DAILY 09/24/21 07/12/23 tablet vitamin B complex 1 tab PO DAILY 09/24/21 07/12/23 simvastatin 80 mg tablet 40 mg PO BEDTIME 03/22/23 Previous Rx's Medication Instructions Recorded albuterol sulfate 90 mcg/actuation 2 puff inhalation Q4-6H PRN 09/25/20 aerosol inhaler (ProAir HFA) bronchospasm 30 days #8.5 grams blood sugar diagnostic (OneTouch #50 ea 10/04/20 Verio test strips) cane #1 ea 06/03/21 levothyroxine 50 mcg tablet 50 mcg PO DAILY 90 days #90 tabs 04/19/22 alendronate 70 mg tablet 70 mg PO QWEEK 90 days #13 tabs 05/06/22 lisinopril 10 mg tablet 10 mg PO DAILY 90 days #90 tabs 06/03/22 aspirin 81 mg tablet,delayed 81 mg PO DAILY 30 days #30 tabs 12/24/22 release (Adult Aspirin Regimen) metformin 500 mg tablet 500 mg PO BID 90 days #180 tabs 01/18/23 blood sugar diagnostic (OneTouch 1 strip miscellaneous BID 90 days 02/26/23 Verio test strips) #100 strips blood-glucose meter (OneTouch #1 ea 03/05/23 Verio Flex Meter) lidocaine 5 %-phenylephrine 0.25 1 appl topical BID PRN rectal 03/05/23 %-glycern 14.4 %-petrolatm 15 % discomfort #28 grams cream (Preparation H Rapid Relief-Lidocaine) cholecalciferol (vitamin D3) 25 25 mcg PO DAILY 90 days #90 caps 03/21/23 mcg (1,000 unit) capsule fluticasone propionate 44 2 puff inhalation BID 30 days 04/22/23 mcg/actuation HFA aerosol inhaler #10.6 grams (Flovent HFA) lidocaine 4 % topical patch 1 patch topical DAILY PRN pain #30 04/22/23 (Aspercreme (lidocaine)) ea pantoprazole 40 mg tablet,delayed 40 mg PO DAILY 90 days #90 tabs 05/19/23 release sertraline 25 mg tablet 25 mg PO DAILY 90 days #90 tabs 05/20/23 acyclovir 800 mg tablet 800 mg PO BID 7 days #14 tabs 05/21/23 zolpidem 10 mg tablet 10 mg PO BEDTIME PRN insomnia 30 06/21/23 days #30 tabs ibuprofen 600 mg tablet 600 mg PO Q8H PRN pain 30 days #90 07/14/23 tabs acetaminophen 500 mg tablet 500 mg PO Q6H PRN fever or pain 07/16/23 (Tylenol Extra Strength) #30 tabs meloxicam submicronized 10 mg 10 mg PO DAILY PRN Joint pain #30 07/16/23 capsule caps Allergies Allergy/AdvReac Type Severity Reaction Status Date / Time No Known Allergies Allergy Verified 07/12/23 10:14 [No Known Allergies*] Review of Systems 2 Review of Systems: Yes all other systems are reviewed and are negative [facility] Past Medical History [facility] Narrative: Social history: She lives alone. She denies tobacco, alcohol and drug use. Medical History Hypercalcemia Dysphagia Hyperlipidemia LDL goal <70 Moderate asthma Age related osteoporosis Multinodular thyroid Left leg pain Diabetes Autoimmune thyroiditis Obesity (BMI 30-39.9) GERD (gastroesophageal reflux disease) Asthma Osteoarthritis Depression Dyslipidemia Thyroid nodule Insomnia Surgical History History of laparoscopic cholecystectomy Hx of colonoscopy Hx of wisdom tooth extraction Hx of tubal ligation Hx of appendectomy Family History Family History Father Edema Mother Diabetes CVA (cerebral vascular accident) Hypertension Social History Social History Household Members: None Housing: Apartment Alcohol intake: never Patient Tobacco Use Status: Never used Tobacco Smoked in Last 30 Days: No e-Cigarette/Vaping Use: Never Used Second Hand Smoke Exposure: No Use of substances other than those prescribed or required for medical reasons: No Advance Directives: No Advance Directives Information Provided: Yes Advance Directives Date on File: 08/15/20 service: No Current occupational status: disabled Cognitive needs: No Hearing needs: No Vision needs: Yes Physical Exam 2 Vital Signs: Vital Signs: Last Vital Signs Temp 98.0 F 07/16/23 05:07 Pulse 77 07/16/23 05:07 Resp 18 07/16/23 05:07 BP 137/91 H 07/16/23 05:07 Pulse Ox 98 07/16/23 05:07 O2 Del Method Room Air 07/16/23 05:07 BMI result Body Mass Index 31.0 Vital signs were unremarkable. Exam: General: Awake, alert in no distress Head: Normocephalic, atraumatic EENT: PERRL, Lids normal, sclera normal, conjunctiva normal, nose normal , ears normal, throat without erythema or exudates Neck: Supple, no adenopathy, trachea midline and nontender Lung: breath sounds symmetric, no wheezing, rales or rhonchi Chest: symmetric movement, nontender Heart: regular rate and rhythm, normal S1, S2 no murmurs or rubs Abdomen: soft, non-tender, nondistended, normal bowel sounds Back: no vertebral tenderness, no CVAT Extremities: Patient's knees appear to be symmetric, both extremities appear to be in symmetric in size as well, patient does have tenderness palpation over her left knee with no increased warmth or erythema noted over the knee, there is no joint effusion, she does have significant discomfort with flexion and extension both passively and against resistance of her left knee. Skin: no rashes, no lesion, normal color and warmth Neuro: Awake, alert, oriented, normal speech, cranial nerves intact, moves all extremities symmetrically Psych: Pleasant, cooperative Medications Administered Discontinued Medications Generic Name Dose Route Start Last Admin Trade Name Freq PRN Reason Stop Dose Admin Ketorolac Tromethamine 30 mg 07/16/23 05:32 07/16/23 05:42 Ketorolac Tromethamine 30 Mg/Ml Vial IM 07/16/23 05:33 30 mg ONCE ONE Administration Medical Decision Making Medical Decision Making MDM Narrative: 73-year-old female with a history of cognitive apparent, depression, high cholesterol, diabetes, hypertension, GERD, arthritis who presents emergency department for evaluation of left knee pain times several months with increased pain times 1 week with severe pain since 02:30 hours this morning. Patient did not report any injury and has had no concerning systemic symptoms. She has been taking Tylenol with no relief for pain. Vital signs were normal. Examination did reveal tenderness palpation of the left knee. I ordered the following evaluation: CBC, BMP, left knee x-ray. Patient was treated with Toradol 30 mg IM. 0631: Patient's laboratory evaluation was unremarkable. EKG did not reveal any significant abnormalities Patient's symptoms are most likely caused by osteoarthritis or inflammatory arthritis. Differential Diagnosis Differential Diagnoses: The differential diagnosis associated with the presentation includes Differential diagnosis includes was not limited to occult fracture, fracture, osteoarthritis, septic arthritis, inflammatory arthritis Admission/Observation Consideration of admission/observation: Escalation of care including admission/observation considered Lab Data [facility] Lab Attestation statement: I reviewed the patient's lab results. My interpretation patient's laboratory evaluation is as follows: CBC was normal. Glucose elevated 155. 07/16/23 05:43 07/16/23 05:43 Labs: Lab Results 07/16/23 Range/Units 05:43 WBC 6.0 (4.8-10.8) X10*3/uL RBC 4.56 (4.20-5.50) X10*6/uL Hgb 13.9 (12.0-16.0) g/dl Hct 41.7 (37.0-47.0) % MCV 91.4 (80.0-98.0) fL MCH 30.5 (27.0-33.0) pg MCHC 33.3 (31.0-35.0) g/dl RDW 13.2 (11.0-16.0) % Plt Count 241 (160-400) X10*3/uL MPV 10.7 (9.4-12.3) fL Absolute Nucleated RBC 0.000 (0.0-0.012) X10*3/uL Nucleated RBC % (auto) 0.0 (0.0-0.2) /100WBC Sodium 142 (135-145) mmol/L Potassium 4.3 (3.3-5.1) mmol/L Chloride 110 H (96-108) mmol/L Carbon Dioxide 25 (22-29) mmol/L Anion Gap 11 L (12-20) BUN 12 (9-16) mg/dL Creatinine 0.71 (0.5-1.4) mg/dL Estim Creat Clear Calc 69.7 Estimated GFR > 60 Random Glucose 155 H (60-115) mg/dL Calcium 10.0 (8.4-10.2) mg/dL Total Bilirubin 0.2 (0.0-1.0) mg/dL AST 15 (5-31) U/L ALT 15 (0-31) U/L Alkaline Phosphatase 76 (39-117) U/L Total Protein 7.5 (6.5-8.0) g/dL Albumin 4.4 (3.5-5.0) g/dL Independent Interpretation I performed an independent interpretation of an: Plain X-Ray Interpretation: My independent interpretation of the patient's Two view x-ray of the left knee is as follows: No acute fracture, no joint effusion, no significant abnormalities noted . Radiology Impression Discussion of test interpretation with radiology: I have reviewed the radiologist's reading. Radiologist Impression: XR knee LT 2V IMPRESSION: No significant osseous abnormality identified. No joint effusion. Dictated By: Wilbert Rutherford Discharge Plan Discharge Clinical Impression: Arthritis of knee, left Patient Disposition: Home, Self-Care Instructions: Osteoarthritis (ED) Additional Instructions: Your blood work was normal. The x-ray of your knee revealed no broken bones and no other significant abnormalities. Your pain is caused by inflammation (arthritis) of your knee-this is called osteoarthritis Take meloxicam 10 mg pills, 1 pill once a day for 4 days to see if this relieves her pain. After 4 days you can take 1 pill once a day as needed for pain. While your taking meloxicam do not take any brlp-mmb-upckuoo anti-inflammatory pain medications such as ibuprofen, Motrin, Advil, Aleve, naproxen Take Tylenol (acetaminophen) 500 mg pills, 2 pills every 6 hours as needed for pain or fever. Apply ice for 15 minutes to her left knee then 1 hour later apply a heating pad on low for 15 minutes. Do this 4 to 6 times a day for the next 2-3 days to help reduce the pain in your knee. Follow-up with your doctor in 2 days. Please return to the emergency department if your symptoms get worse or if you develop any symptoms that are concerning to you. Prescriptions: New acetaminophen [Tylenol Extra Strength] 500 mg tablet 500 mg PO Q6H PRN (Reason: fever or pain) Qty: 30 0RF meloxicam submicronized 10 mg capsule 10 mg PO DAILY PRN (Reason: Joint pain) Qty: 30 0RF No Action albuterol sulfate [ProAir HFA] 90 mcg/actuation HFA aerosol inhaler 2 puff inhalation Q4-6H PRN (Reason: bronchospasm) 30 Days Qty: 8.5 6RF (DME) OneTouch Verio test strips Strip See Rx Instructions .ROUTE .MEDSUPPLY Qty: 50 11RF Rx Instructions: As directed twice a day (DME) cane Device See Rx Instructions .Route Qty: 1 0RF Rx Instructions: As directed levothyroxine 50 mcg tablet 50 mcg PO DAILY 90 Days Qty: 90 3RF alendronate 70 mg tablet 70 mg PO QWEEK 90 Days Qty: 13 1RF aspirin [Adult Aspirin Regimen] 81 mg tablet,delayed release (DR/EC) 81 mg PO DAILY 30 Days Qty: 30 11RF metformin 500 mg tablet 500 mg PO BID 90 Days Qty: 180 2RF OneTouch Verio test strips Strip 1 strip miscellaneous BID 90 Days Qty: 100 3RF (DME) blood-glucose meter [OneTouch Verio Flex meter] [facility] See Rx Instructions .Route Qty: 1 0RF Rx Instructions: As directed cholecalciferol (vitamin D3) 25 mcg (1,000 unit) capsule 25 mcg PO DAILY 90 Days Qty: 90 1RF Flovent HFA 44 mcg/actuation HFA aerosol inhaler 2 puff inhalation BID 30 Days Qty: 10.6 2RF Rx Instructions: administer with spacer lidocaine [Aspercreme (lidocaine)] 4 % adhesive patch,medicated 1 patch topical DAILY PRN (Reason: pain) Qty: 30 0RF pantoprazole 40 mg tablet,delayed release (DR/EC) 40 mg PO DAILY 90 Days Qty: 90 3RF sertraline 25 mg tablet 25 mg PO DAILY 90 Days Qty: 90 0RF acyclovir 800 mg tablet 800 mg PO BID 7 Days Qty: 14 1RF zolpidem 10 mg tablet 10 mg PO BEDTIME PRN (Reason: insomnia) 30 Days Qty: 30 0RF ibuprofen 600 mg tablet 600 mg PO Q8H PRN (Reason: pain) 30 Days Qty: 90 0RF lisinopril 10 mg tablet 10 mg PO DAILY 90 Days Qty: 90 3RF Preparation H Rapid Rlf-Lidocn 5-0.25-14.4-15 % cream 1 appl topical BID PRN (Reason: rectal discomfort) Qty: 28 0RF simvastatin 80 mg tablet 40 mg PO BEDTIME vitamin B complex Tablet 1 tab PO DAILY ascorbic acid (vitamin C) 500 mg tablet 500 mg PO DAILY Print Language: Citizen [place]
--- NOTE | 2023-07-16 07:40 | PC.NURSE ---
Discharge instructions reviewed with patient via parts interpreter, patient verbalized understanding. Patient states is calling family to get a ride home
== END 2023-07-16 07:53 | disposition home or self-care (01) ==
PROVIDERS: Emergency Provider Emergency Medicine Emergency Medical Services
DX: M17.12 Unilateral primary osteoarthritis, left knee (principal); M79.605 Pain in left leg; E11.9 Type 2 diabetes mellitus without complications; I10 Essential (primary) hypertension; E78.5 Hyperlipidemia, unspecified; E66.9 Obesity, unspecified; Z68.31 Body mass index [BMI] 31.0-31.9, adult; Z79.84 Long term (current) use of oral hypoglycemic drugs; Z79.899 Other long term (current) drug therapy; Z79.82 Long term (current) use of aspirin
CPT/HCPCS: 36415; 73560; 80053; 85027; 96372; 99284; J1885

== ENCOUNTER 2023-07-22 01:56 | Emergency (ER) | payer OTHER, SELFPAY ==
[2023-07-22 02:38] VITALS: BP 108/60; PULSE 81; RESP 18; TEMP 36.8; O2SAT 97; BMI 32.4
[2023-07-22 03:01] LABS: MANUAL DIFF FLAG NO
[2023-07-22 03:13] LABS: Basophils Percent Auto 0.1 % (0-2); Eosinophils Absolute Auto 0.1 X10*3/uL (0.0-0.4); Eosinophils Percent Auto 0.6 % (0-4); Hematocrit 39.9 % (37.0-47.0); Hemoglobin 13.3 g/dl (12.0-16.0); Imm Gran Abs Auto 0.02 X10*3/uL (0.00-0.03); Imm Gran Pct Auto 0.2 % (0.0-0.4); Lymphocytes Absolute Auto 1.6 X10*3/uL (1.2-4.9); Lymphocytes Percent Auto 18.8 % (20-40); Mean Corpuscular HGB Conc 33.3 g/dl (31.0-35.0); Mean Corpuscular Volume 89.9 fL (80.0-98.0); Mean Platelet Volume 11.1 fL (9.4-12.3); Monocytes Absolute Auto 0.8 X10*3/uL (0.1-1.2); Neutrophils Percent Auto 71.3 % (45-73); Platelet Count 238 X10*3/uL (160-400); Red Blood Count 4.44 X10*6/uL (4.20-5.50); White Blood Count 8.4 X10*3/uL (4.8-10.8)
[2023-07-22 03:22] LABS: Alanine Aminotransferase 14 U/L (0-31); Albumin Level 4.3 g/dL (3.5-5.0); Alkaline Phosphatase 67 U/L (39-117); Anion Gap 12 (12-20); Aspartate Amino Transferase 12 U/L (5-31); Bilirubin Total 0.4 mg/dL (0.0-1.0); Blood Urea Nitrogen 9 mg/dL (9-16); Calcium 9.8 mg/dL (8.4-10.2); Carbon Dioxide 23 mmol/L (22-29); Chloride 107 mmol/L (96-108); Estimated Glomerular Filt Rate > 60; Glucose Random 182 mg/dL (60-115); Potassium 3.9 mmol/L (3.3-5.1); Sodium 138 mmol/L (135-145); Total Protein 7.2 g/dL (6.5-8.0)
[2023-07-22 05:04] VITALS: BP 125/69; PULSE 67; RESP 17; TEMP 37.2; O2SAT 96
--- NOTE | 2023-07-22 05:58 | ED.GENADULT ---
HPI - General Adult General Chief complaint: Skin/Abscess/Foreign Body Stated complaint: neck pain radiates into body Time Seen by Provider: 07/22/23 05:47 Source: patient Mode of arrival: ambulatory Limitations: no limitations History of Present Illness HPI narrative: Patient comes to the emergency room complaining of an itchy rash in the left lower extremity. It has been there for 3 days, patient denies being outside or having contact with possible poison mattie. Also, patient requesting to send her prescription of meloxicam to [facility]. Patient was seen here 6 days ago, patient went to [facility] her medication and she was told that she needed to be 800 dollars out of pocket. Patient check prices, states that in [facility] the prescription/co-payment is cheaper and requesting to be sent to the pharmacy. Related Data Home Medications Medication Instructions Recorded Confirmed ascorbic acid (vitamin C) 500 mg 500 mg PO DAILY 09/24/21 07/12/23 tablet vitamin B complex 1 tab PO DAILY 09/24/21 07/12/23 simvastatin 80 mg tablet 40 mg PO BEDTIME 03/22/23 Previous Rx's Medication Instructions Recorded albuterol sulfate 90 mcg/actuation 2 puff inhalation Q4-6H PRN 09/25/20 aerosol inhaler (ProAir HFA) bronchospasm 30 days #8.5 grams blood sugar diagnostic (OneTouch #50 ea 10/04/20 Verio test strips) cane #1 ea 06/03/21 levothyroxine 50 mcg tablet 50 mcg PO DAILY 90 days #90 tabs 04/19/22 alendronate 70 mg tablet 70 mg PO QWEEK 90 days #13 tabs 05/06/22 lisinopril 10 mg tablet 10 mg PO DAILY 90 days #90 tabs 06/03/22 aspirin 81 mg tablet,delayed 81 mg PO DAILY 30 days #30 tabs 12/24/22 release (Adult Aspirin Regimen) blood sugar diagnostic (OneTouch 1 strip miscellaneous BID 90 days 02/26/23 Verio test strips) #100 strips blood-glucose meter (OneTouch #1 ea 03/05/23 Verio Flex Meter) lidocaine 5 %-phenylephrine 0.25 1 appl topical BID PRN rectal 03/05/23 %-glycern 14.4 %-petrolatm 15 % discomfort #28 grams cream (Preparation H Rapid Relief-Lidocaine) cholecalciferol (vitamin D3) 25 25 mcg PO DAILY 90 days #90 caps 03/21/23 mcg (1,000 unit) capsule fluticasone propionate 44 2 puff inhalation BID 30 days 04/22/23 mcg/actuation HFA aerosol inhaler #10.6 grams (Flovent HFA) lidocaine 4 % topical patch 1 patch topical DAILY PRN pain #30 04/22/23 (Aspercreme (lidocaine)) ea pantoprazole 40 mg tablet,delayed 40 mg PO DAILY 90 days #90 tabs 05/19/23 release sertraline 25 mg tablet 25 mg PO DAILY 90 days #90 tabs 05/20/23 acyclovir 800 mg tablet 800 mg PO BID 7 days #14 tabs 05/21/23 ibuprofen 600 mg tablet 600 mg PO Q8H PRN pain 30 days #90 07/14/23 tabs acetaminophen 500 mg tablet 500 mg PO Q6H PRN fever or pain 07/16/23 (Tylenol Extra Strength) #30 tabs meloxicam submicronized 10 mg 10 mg PO DAILY PRN Joint pain #30 07/16/23 capsule caps metformin 500 mg tablet 500 mg PO BID 90 days #180 tabs 07/19/23 zolpidem 10 mg tablet 10 mg PO BEDTIME PRN insomnia 30 07/19/23 days #30 tabs hydrocortisone 2.5 % topical cream 1 appl topical TID PRN rash #28 07/22/23 grams meloxicam submicronized 10 mg 10 mg PO DAILY PRN pain #20 caps 07/22/23 capsule Allergies Allergy/AdvReac Type Severity Reaction Status Date / Time No Known Allergies Allergy Verified 07/12/23 10:14 [No Known Allergies*] Review of Systems Review of Systems: Constitutional : No Weight loss, No Fever, No Chills, No Night Sweats, No Fatigue, No Malaise ENT/Mouth : No Hearing loss, No Ear Pain, No Nasal Congestion, No Sinus Pain, No Hoarseness, No sore throat, No Rhinorrhea, No Swallowing Difficulty Eyes: No Eye Pain, No Swelling, No Redness, No Foreign Body, No Discharge, No Vision Changes Cardiovascular : No Chest Pain, No SOB, No Dyspnea on Exertion, No Orthopnea, No Edema, No Palpitations Respiratory : No Cough, No Sputum, No Wheezing, No Smoke Exposure, No Dyspnea Gastrointestinal : No Nausea, No Vomiting, No Diarrhea, No Constipation, No abdominal Pain, No Hematochezia, No Melena Genitourinary : no irregular bleeding, No Dysuria, No Urinary Frequency, No Hematuria, No Urinary Incontinence, No Urgency, No Flank Pain, No Urinary Flow Changes, No Hesitancy Musculoskeletal : Complaining of chronic knee pain on the left, No Myalgias, No Joint Swelling Skin : Complaining of itchy rash in several areas of the skin on the lower extremity Neuro : No Weakness, No Numbness, No Paresthesias, No Loss of Consciousness, No Dizziness, No Headache Psych : No Anxiety/Panic, No Depression, No SI/HI/AH/VH, No Social Issues, Heme/Lymph: No Bruising, No Bleeding,No Lymphadenopathy Endocrine : No Polyuria, No Polydipsia, No Temperature Intolerance PMFSH Past Medical History Medical History Hypercalcemia Dysphagia Hyperlipidemia LDL goal <70 Moderate asthma Age related osteoporosis Multinodular thyroid Left leg pain Diabetes Autoimmune thyroiditis Obesity (BMI 30-39.9) GERD (gastroesophageal reflux disease) Asthma Osteoarthritis Depression Dyslipidemia Thyroid nodule Insomnia Surgical History History of laparoscopic cholecystectomy Hx of colonoscopy Hx of wisdom tooth extraction Hx of tubal ligation Hx of appendectomy Family History Family History Father Edema Mother Diabetes CVA (cerebral vascular accident) Hypertension Social History Social History Household Members: None Housing: Apartment Alcohol intake: never Patient Tobacco Use Status: Never used Tobacco e-Cigarette/Vaping Use: Never Used Second Hand Smoke Exposure: No Advance Directives: No Advance Directives Information Provided: Yes Advance Directives Date on File: 08/15/20 service: No Current occupational status: disabled Cognitive needs: No Hearing needs: No Vision needs: Yes Physical Exam ED Vital Signs: Vital Signs - 24 hr 07/22/23 02:38 07/22/23 05:04 Temperature 98.2 F 98.9 F Pulse Rate 81 67 Respiratory Rate 18 17 Blood Pressure 108/60 125/69 Pulse Oximetry 97 96 Oxygen Delivery Method Room Air Room Air BMI result Body Mass Index 32.4 Const Other: Appearance: Alert. Oriented X3. No acute distress. Eyes: Pupils equal, round and reactive to light. ENT: Pharynx normal. Neck: Normal inspection. Neck supple. No lymph nodes noted. No crepitus CVS: Normal heart rate and rhythm. Pulses normal. Normal S1 and S2 Respiratory: No respiratory distress. Breath sounds normal. No Wheezing. No rales Abdomen: Soft and nontender. No rigidity. No distention. Skin: Skin warm and dry. Erythematous vesicular rash in several spots from the knee to the ankle Extremities: Patient able to flex and extend the knee, no erythema, no deformity, no effusion No lower extremity edema. No Lacerations. No Rash Neuro: Oriented X 3. No motor deficit. No sensory deficit. Moving all extremities. No slurred speech. CN 2 through 12 grossly intact Psych: calm, cooperative, normal affect Medical Decision Making Medical Decision Making [facility] Narrative: -I discussed the physical exam with the patient, patient may have dermatitis versus mattie rash, versus insect bite -no signs of cellulitis Differential Diagnosis Differential Diagnoses: The differential diagnosis associated with the presentation includes (As above) Lab Data [facility] Lab Attestation statement: I reviewed the patient's lab results. (Normal white blood cell count and chemistry) 07/22/23 02:56 07/22/23 02:56 Labs: Lab Results 07/22/23 Range/Units 02:56 WBC 8.4 (4.8-10.8) X10*3/uL RBC 4.44 (4.20-5.50) X10*6/uL Hgb 13.3 (12.0-16.0) g/dl Hct 39.9 (37.0-47.0) % MCV 89.9 (80.0-98.0) fL MCH 30.0 (27.0-33.0) pg MCHC 33.3 (31.0-35.0) g/dl RDW 13.0 (11.0-16.0) % Plt Count 238 (160-400) X10*3/uL MPV 11.1 (9.4-12.3) fL Immature Gran % (Auto) 0.2 (0.0-0.4) % Neut % (Auto) 71.3 (45-73) % Lymph % (Auto) 18.8 L (20-40) % [place] % (Auto) 9.0 (2-11) % Eos % (Auto) 0.6 (0-4) % Baso % (Auto) 0.1 (0-2) % Lymph # (Auto) 1.6 (1.2-4.9) X10*3/uL [place] # (Auto) 0.8 (0.1-1.2) X10*3/uL Eos # (Auto) 0.1 (0.0-0.4) X10*3/uL Baso # (Auto) 0.0 (0.0-0.2) X10*3/uL Abs Immat Gran (auto) 0.02 (0.00-0.03) X10*3/uL Absolute Neuts (auto) 6.0 (2.0-8.3) x10*3/uL Absolute Nucleated RBC 0.000 (0.0-0.012) X10*3/uL Nucleated RBC % (auto) 0.0 (0.0-0.2) /100WBC Sodium 138 (135-145) mmol/L Potassium 3.9 (3.3-5.1) mmol/L Chloride 107 (96-108) mmol/L Carbon Dioxide 23 (22-29) mmol/L Anion Gap 12 (12-20) BUN 9 (9-16) mg/dL Creatinine 0.67 (0.5-1.4) mg/dL Estim Creat Clear Calc 64.0 Estimated GFR > 60 Random Glucose 182 H (60-115) mg/dL Calcium 9.8 (8.4-10.2) mg/dL Total Bilirubin 0.4 (0.0-1.0) mg/dL AST 12 (5-31) U/L ALT 14 (0-31) U/L Alkaline Phosphatase 67 (39-117) U/L Total Protein 7.2 (6.5-8.0) g/dL Albumin 4.3 (3.5-5.0) g/dL Discharge Plan Discharge Clinical Impression: Dermatitis Patient Disposition: Home, Self-Care Instructions: Dermatitis (ED) Additional Instructions: Please follow-up with your primary care physician tomorrow. If you have any worsening or new symptoms, please return to the emergency room or call 911 Prescriptions: New hydrocortisone 2.5 % cream 1 appl topical TID PRN (Reason: rash) Qty: 28 0RF meloxicam submicronized 10 mg capsule 10 mg PO DAILY PRN (Reason: pain) Qty: 20 0RF No Action albuterol sulfate [ProAir HFA] 90 mcg/actuation HFA aerosol inhaler 2 puff inhalation Q4-6H PRN (Reason: bronchospasm) 30 Days Qty: 8.5 6RF (DME) OneTouch Verio test strips Strip See Rx Instructions .ROUTE .MEDSUPPLY Qty: 50 11RF Rx Instructions: As directed twice a day (DME) cane Device See Rx Instructions .Route Qty: 1 0RF Rx Instructions: As directed levothyroxine 50 mcg tablet 50 mcg PO DAILY 90 Days Qty: 90 3RF alendronate 70 mg tablet 70 mg PO QWEEK 90 Days Qty: 13 1RF aspirin [Adult Aspirin Regimen] 81 mg tablet,delayed release (DR/EC) 81 mg PO DAILY 30 Days Qty: 30 11RF OneTouch Verio test strips Strip 1 strip miscellaneous BID 90 Days Qty: 100 3RF (DME) blood-glucose meter [OneTouch Verio Flex meter] Misc See Rx Instructions .Route Qty: 1 0RF Rx Instructions: As directed cholecalciferol (vitamin D3) 25 mcg (1,000 unit) capsule 25 mcg PO DAILY 90 Days Qty: 90 1RF Flovent HFA 44 mcg/actuation HFA aerosol inhaler 2 puff inhalation BID 30 Days Qty: 10.6 2RF Rx Instructions: administer with spacer lidocaine [Aspercreme (lidocaine)] 4 % adhesive patch,medicated 1 patch topical DAILY PRN (Reason: pain) Qty: 30 0RF pantoprazole 40 mg tablet,delayed release (DR/EC) 40 mg PO DAILY 90 Days Qty: 90 3RF sertraline 25 mg tablet 25 mg PO DAILY 90 Days Qty: 90 0RF acyclovir 800 mg tablet 800 mg PO BID 7 Days Qty: 14 1RF ibuprofen 600 mg tablet 600 mg PO Q8H PRN (Reason: pain) 30 Days Qty: 90 0RF zolpidem 10 mg tablet 10 mg PO BEDTIME PRN (Reason: insomnia) 30 Days Qty: 30 0RF metformin 500 mg tablet 500 mg PO BID 90 Days Qty: 180 0RF acetaminophen [Tylenol Extra Strength] 500 mg tablet 500 mg PO Q6H PRN (Reason: fever or pain) Qty: 30 0RF meloxicam submicronized 10 mg capsule 10 mg PO DAILY PRN (Reason: Joint pain) Qty: 30 0RF lisinopril 10 mg tablet 10 mg PO DAILY 90 Days Qty: 90 3RF Preparation H Rapid Rlf-Lidocn 5-0.25-14.4-15 % cream 1 appl topical BID PRN (Reason: rectal discomfort) Qty: 28 0RF simvastatin 80 mg tablet 40 mg PO BEDTIME vitamin B complex Tablet 1 tab PO DAILY ascorbic acid (vitamin C) 500 mg tablet 500 mg PO DAILY
== END 2023-07-22 06:28 | disposition home or self-care (01) ==
PROVIDERS: Emergency Provider Emergency Medicine
DX: L30.9 Dermatitis, unspecified (principal); R21 Rash and other nonspecific skin eruption
CPT/HCPCS: 36415; 80053; 85025; 99283

== ENCOUNTER 2023-07-30 10:06 | Outpatient (AMB) | payer OTHER, SELFPAY ==
--- NOTE | 2023-07-30 10:07 | A.OFFPC_ITS ---
Vital Signs 07/30/23 10:08 Height 4 ft 10 in Weight 154 lb BMI 32.2 BP 118/62 Blood Pressure Location Lt brachial Position Sitting Pulse 78 Pulse Source Pulse Oximeter Temp Source Skin Pulse Oximetry (%) 99 Oxygen Delivery Method Room Air Intake Visit Reasons: left leg apin Intake Note: pt states worsening left leg pain X2 weeks Poultry Hanger Required: No Allergies No Known Allergies [No Known Allergies*] Allergy (Verified 07/30/23 10:27) Medication List - Last Reconciled 07/30/23 by DORI Hayes acetaminophen (Tylenol Extra Strength) 500 mg PO Q6H PRN acyclovir 800 mg PO BID 7 days albuterol sulfate 90 mcg/actuation (ProAir HFA) 2 puffs inhalation Q4-6H PRN 30 days alendronate 70 mg PO QWEEK 90 days ascorbic acid (vitamin C) 500 mg PO DAILY aspirin (Adult Aspirin Regimen) 81 mg PO DAILY 30 days blood sugar diagnostic (OneTouch Verio test strips) As directed twice a day blood sugar diagnostic (OneTouch Verio test strips) 1 strip miscellaneous BID 90 days blood-glucose meter ([place] Verio Flex Meter) As directed cane As directed cholecalciferol (vitamin D3) 25 mcg PO DAILY 90 days fluticasone propionate 44 mcg/actuation (Flovent HFA) 2 puffs inhalation BID 30 days hydrocortisone 2.5% 1 appl topical TID PRN ibuprofen 600 mg PO Q8H PRN 30 days levothyroxine 50 mcg PO DAILY 90 days lidocaine 4% (Aspercreme (lidocaine)) 1 patch topical DAILY PRN [id number]-grcvne-gildxi-petrol 5-0.25-14.4-15 % (Preparation H Rapid Relief- Lidocaine) 1 appl topical BID PRN lisinopril 10 mg PO DAILY 90 days metformin 500 mg PO BID 90 days pantoprazole 40 mg PO DAILY 90 days sertraline 25 mg PO DAILY 90 days simvastatin 40 mg PO BEDTIME vitamin B complex 1 tab PO DAILY zolpidem 10 mg PO BEDTIME PRN 30 days Tobacco use date assessed: 07/30/23 Fall risk assessment: No Falls in past year Last assessed Fall Risk: 07/30/23 HPI left leg apin HPI Details Patient is a 73-year-old female who presents today to follow-up after [facility] visit 07/16/2023. Patient of Dr. Pitt. Per ED notes: 73-year-old female who presents emergency department for evaluation of left knee and left thigh pain. Patient states she does have arthritis of her knees and she has been having pain in her left knee for several months. She states that over the past week the pain is become more severe. She points to her left knee when asked to localize the pain, she states the pain is a constant, throbbing/aching pain. She has been taking Tylenol intermittently over the past 2-3 days with only minimal relief of the pain. She states she was taking ibuprofen in the past but the pill is too big to swallow and she stop taking ibuprofen. She states that the pain became worse this morning at around 02:30 hours. She took Tylenol with no relief. She was unable sleep therefore she called an ambulance and came to the emergency department for evaluation. At the time my evaluation she states that the a left knee pain is a constant, throbbing pain is 8/10. 73-year-old female with a history of cog nitive apparent, depression, high cholesterol, diabetes, hypertension, GERD, arthritis who presents emergency department for evaluation of left knee pain times several months with increased pain times 1 week with severe pain since 02:30 hours this morning. Patient did not report any injury and has had no concerning systemic symptoms. She has been taking Tylenol with no relief for pain. Vital signs were normal. Examination did reveal tenderness palpation of the left knee. I ordered the following evaluation: CBC, BMP, left knee x-ray. Patient was treated with Toradol 30 mg IM. 0631: Patient's laboratory evaluation was unremarkable. EKG did not reveal any significant abnormalities Patient's symptoms are most likely caused by osteoarthritis or inflammatory arthritis. The x-ray of your knee revealed no broken bones and no other significant abnormalities. Your pain is caused by inflammation (arthritis) of your knee-this is called osteoarthritis Take meloxicam 10 mg pills, 1 pill once a day for 4 days to see if this relieves her pain. After 4 days you can take 1 pill once a day as needed for pain. While your taking meloxicam do not take any [id number] anti-inflammatory pain medications such as ibuprofen, Motrin, Advil, Aleve, naproxen Take Tylenol (acetaminophen) 500 mg pills, 2 pills every 6 hours as needed for pain or fever. Apply ice for 15 minutes to her left knee then 1 hour later apply a heating pad on low for 15 minutes. Do this 4 to 6 times a day for the next 2-3 days to help reduce the pain in your knee. Follow-up with your doctor in 2 days. Please return to the emergency department if your symptoms get worse or if you develop any symptoms that are concerning to you. TECHNIQUE: Four views of the left knee. FINDINGS: No fracture or joint effusion. Alignment is anatomic. Joint spaces are maintained. There is a 1.5 cm popliteal calcification. XR/XR knee LT 2V IMPRESSION: No significant osseous abnormality identified. No joint effusion. Today, patient reports ongoing left knee pain which radiates slightly distally and then go all the way up to her left lower back, she describes pain as burning/stabbing sensation. She did take ibuprofen this morning and her pain is not bed now, although she reports that ibuprofen only lasts about 2-3 hours and then she starts with severe pain again. She reports that she cannot sleep due to bed pain at night too. Patient reports that she still does not have her meloxicam as emergency department sent as capsules and she needs to have tablets for insurance to cover. Patient reports this left knee pain worse for the past 2 weeks although she has been having this pain for long time now. Patient denies shortness of breath or chest pain. Patient is in Kosovan-speaking and her COMPUTER INFORMATION SYSTEMS PROFESSOR Amanda was helping with interpretation. [facility] Medical History Hypercalcemia Dysphagia Hyperlipidemia LDL goal <70 Moderate asthma Age related osteoporosis Multinodular thyroid Left leg pain Diabetes Autoimmune thyroiditis Obesity (BMI 30-39.9) GERD (gastroesophageal reflux disease) Asthma Osteoarthritis Depression Dyslipidemia Thyroid nodule Insomnia Surgical History History of laparoscopic cholecystectomy Hx of colonoscopy Hx of wisdom tooth extraction Hx of tubal ligation Hx of appendectomy Family History Father Edema Mother Diabetes CVA (cerebral vascular accident) Hypertension Social History Household Members: None Housing: Apartment Alcohol intake: never Patient Tobacco Use Status: Never used Tobacco e-Cigarette/Vaping Use: Never Used Second Hand Smoke Exposure: No Advance Directives Date on File: 08/15/20 service: No Current occupational status: disabled Cognitive needs: No Hearing needs: No Vision needs: Yes Female Reproductive History Menstrual Age of Menarche: 15 Questionnaire Thrive Questionnaire Date Thrive assessed: 03/05/23 AUDIT C Alcohol Use Questionnaire (AUDIT-C) 1. How often do you have a drink containing alcohol?: Never 3. How often do you have six or more drinks on one occasion?: Never Total Score: 0 Score Reviewed/Action Taken: No LIZZETTE-7 AMB Questionnaire LIZZETTE-7 Date LIZZETTE - 7 assessed: 06/03/22 Source: Developed by Drs. Wilbert Garcia, Mary Vera, Dimitry Church and colleagues, with an educational amairani from [employer]. Review of Systems Const Denies body aches, Denies chills, Denies fever(s) and Denies headache(s) ENT Denies dizziness, Denies otalgia, Denies headache(s), Denies nasal discharge, Denies sinus pain and Denies sore throat Card Denies chest pain, Denies edema, Denies lightheadedness and Denies dyspnea Resp Denies dyspnea and Denies wheezing GI Denies abdominal pain Denies dysuria Musc Reports as per HPI, Denies myalgias and Reports arthralgias Skin/Breast Denies rash Neuro Denies dizziness and Denies headache(s) Aller/Immun Denies wheezing Physical exam (Primary Care) Vital Signs: Last Vital Signs Pulse 78 07/30/23 10:08 BP 118/62 07/30/23 10:08 Pulse Ox 99 07/30/23 10:08 Oxygen Delivery Method Room Air 07/30/23 10:08 BMI result Body Mass Index 32.2 Tobacco/Smoking Status: Tobacco use Status Tobacco use date assessed 07/30/23 07/30/23 10:14 Patient Tobacco Use Status Never used Tobacco 07/30/23 10:14 e-Cigarette/Vaping Use Never Used 07/30/23 10:14 Thrive Assessment: Date of Thrive Assessment Date Thrive assessed 03/05/23 07/30/23 10:14 Const General: cooperative and no acute distress Orientation/consciousness: patient oriented x3 HENMT Head: Yes normocephalic and Yes atraumatic Mouth: oropharynx normal and moist mucous membranes Throat: Yes posterior oropharynx normal Eyes General: appearance normal, both eyes and all related structures Neck Neck: Yes normal visual inspection and Yes full ROM Resp Effort & Inspection: normal respiratory effort and able to speak in complete sentences Auscultation: clear to auscultation bilaterally, no crackles, no rales, no rhonchi and no wheezes Cardio Rate: regular rate Rhythm: regular rhythm Heart sounds: S1 normal heart sound present and S2 normal heart sound present GI Auscultation: normal bowel sounds Skin General skin exam: no rashes or lesions noted Neuro Other: Mild limping noted General: patient oriented x3 Extrem General: No edema Left lower extremity: knee Details: normal to inspection, tenderness (Lateral aspect) and abnormal ROM (Pain with range of motion); no swelling, no ecchymosis, no crepitus, no deformity and no unusual warmth Assessment and Plan Assessment & Plan (1) Left knee pain: Code(s): M25.562 - Pain in left knee Plan: Patient presented with left knee pain which is chronic for her and have been worsening for the past 2 weeks. Patient reports that she is followed by [facility] and she was told-she will need to have injection although patient did not want this at that time. Encouraged patient to follow-up with orthopedics, she will call for an appointment. Will provide patient with lidocaine patch daily p.r.n.. Will provide patient with meloxicam 7.5 mg daily for 14 tablets, patient was educated not to take any other NSAIDs while on meloxicam. Patient can continue Tylenol 500 mg every 6 hours as needed. Patient declined physical therapy. Patient agreed with the plan. Signs and symptoms reviewed when to notify provider or go to the emergency department. Medications: New meloxicam 7.5 mg PO DAILY 14 tabs 0RF M25.562 - Pain in left knee Coding Level of Care Code Est Pt Level 3 (77184) Diagnoses Left knee pain M25.562
[2023-07-30 10:08] VITALS: BP 118/62; PULSE 78; O2SAT 99; BMI 32.2
== END 2023-07-30 11:05 | disposition home or self-care (01) ==
PROVIDERS: Visit Provider Nurse Practitioner Family
DX: M25.562 Pain in left knee (principal)
CPT/HCPCS: 99213

== ENCOUNTER 2023-08-23 09:30 | Outpatient (AMB) | payer OTHER, SELFPAY ==
--- NOTE | 2023-08-23 09:32 | MHC.OFFVIS ---
Intake Intake Visit Reasons: Ov- B/L knee pain Intake Note: Ese is a 73 year old female who presents today for a follow up of her bilateral knee pain. She was last seen on 06/25/23, but at that times she was asymptomatic. Patient reports that she is having pain of the knees, was given meloxicam by pcp which caused stomach upset. she has been taking tylenol which does not help. her pain keeps her up at night Allergies No Known Allergies [No Known Allergies*] Allergy (Verified 08/23/23 09:32) HPI Ov- B/L knee pain HPI Details Ese is a 73 year old woman who returns with left knee pain. She was last seen on 06/25/23 and given a left knee brace to wear with activity. She complains of pain in her left knee, worse with walking or using stairs, as well as a burning pain that radiates from her proximal hip down into her mid-calf. She says at times she has extreme pain even to light touch. She complains of noise in her knee. She says she is unable to tolerate meloxicam and has been managing her pain with Tylenol. [facility] Medical History Hypercalcemia Dysphagia Hyperlipidemia LDL goal <70 Moderate asthma Age related osteoporosis Multinodular thyroid Left leg pain Diabetes Autoimmune thyroiditis Obesity (BMI 30-39.9) GERD (gastroesophageal reflux disease) Asthma Osteoarthritis Depression Dyslipidemia Thyroid nodule Insomnia Surgical History History of laparoscopic cholecystectomy Hx of colonoscopy Hx of wisdom tooth extraction Hx of tubal ligation Hx of appendectomy Family History Father Edema Mother Diabetes CVA (cerebral vascular accident) Hypertension Social History Household Members: None Housing: Apartment Alcohol intake: never Patient Tobacco Use Status: Never used Tobacco e-Cigarette/Vaping Use: Never Used Second Hand Smoke Exposure: No Advance Directives Date on File: 08/15/20 service: No Current occupational status: disabled Cognitive needs: No Hearing needs: No Vision needs: Yes Female Reproductive History Menstrual Age of Menarche: 15 Review of Systems Const All systems reviewed & are unremarkable except as noted in HPI and below Physical Exam Const General: no acute distress, alert and awake Orientation/consciousness: patient oriented x3 HEENT Head: Yes normocephalic and Yes atraumatic Eyes EOM: EOMs intact bilaterally Resp Effort & Inspection: normal respiratory effort and able to speak in complete sentences Cardio Jugular venous distension: no JVD Skin General skin exam: turgor normal Rashes: no rashes Neuro General: patient oriented x3 Extrem Other: Left Knee: Global TTP Tender to light & deep touch JLT Psych Appearance: grossly normal Affect: normal affect Attitude: cooperative Office Procedures Joint Injection/Drain Joint Injection/Drain Details: Injected 1 mL of Decadron and 3 mL 1% lidocaine and 3 mL of 0.25% Marcaine. Site was prepped using aseptic technique. Patient tolerated the procedure well. Primary Site: left knee Approach Used: anterolateral Coding 15082 - Large joint Procedure code (CPT) selection complete Results Reviewed Results Reviewed: 08/23/23 10:06 BUPivacaine MPF 0.25 % [Sensorcaine-MPF 0.25% 10 ML] 10 ml .ROUTE .STK-MED ONE Lidocaine HCl 2 % MPF [Xylocaine 2 % MPF] 5 ml .ROUTE .STK-MED ONE dexAMETHasone sod phosphate [Decadron] 4 mg .ROUTE .STK-MED ONE I personally reviewed relevant radiographs. unremarkable left knee Assessment & Plan Assessment & Plan (1) Left knee pain: Code(s): M25.562 - Pain in left knee Plan: This is a 73 year old woman with left knee pain & LE neuropathy. She has pain with daily activity. I had a long conversation with her concerning these diagnoses, she seems to not be able to reconcile these two problems and would like to differentiate which is causing her pain. She denies any prior treatment and is unable to tolerate NSAIDs. I injected her left knee today, which she tolerated well. She will let me know if this is helpful for her. I recommend she be seen by Pain Management, but she declined a referral today. (2) Neuropathy of lower extremity: Code(s): G57.90 - Unspecified mononeuropathy of unspecified lower limb Plan Scribed for Jason Orellana MD by Dung Akins medical dermatologist, on 08/23/23 at 12:05 PM, EST. Coding Level of Care Code Est Pt Level 3 (20292) Diagnoses Left knee pain M25.562 Neuropathy of lower extremity G57.90 CPT Codes Coding - 32789 Large joint: 69726 - Large joint ([id number])
== END 2023-08-23 10:17 | disposition home or self-care (01) ==
PROVIDERS: PCP Internal Medicine; Visit Provider Orthopaedic Surgery
DX: M25.562 Pain in left knee (principal); G57.90 Unspecified mononeuropathy of unspecified lower limb
CPT/HCPCS: 20610; 99213

== ENCOUNTER → 2023-08-23 09:30 | Outpatient (BNVA) | payer OTHER, SELFPAY | PROVIDERS: PCP Internal Medicine; Visit Provider Orthopaedic Surgery | DX: M25.562 Pain in left knee (principal); G57.90 Unspecified mononeuropathy of unspecified lower limb | CPT/HCPCS: 20610; 99212; J1100 ==

== ENCOUNTER 2023-09-24 09:12 | Outpatient (REF) | payer OTHER, SELFPAY ==
--- NOTE | ~2023-09-24 | MR_ITS ---
EXAMINATION: MR BRAIN WITHOUT CONTRAST CLINICAL INFORMATION: Cognitive impairment. Headaches. COMPARISON: Head CT report from 08/27/2010. TECHNIQUE: Multiplanar, multisequence imaging of the brain was performed without contrast. FINDINGS: No diffusion abnormalities are identified to suggest an acute or subacute infarct. The ventricles are normal in size. No mass effect or midline shift is seen. No brain parenchymal signal abnormality is noted. No extra-axial fluid collections are seen. The brainstem and cerebellum are normal. The gradient refocused acquisition is normal. The craniovertebral junction, marrow signal, and midline structures are normal. The major intracranial flow voids at the level of the inaja of [place] are preserved. The dural venous sinus flow voids are maintained. The mastoid air cells are well aerated. There is mild mucosal thickening in the paranasal sinuses. MR/MR head/brain wo con IMPRESSION: Normal MRI of the brain. No acute process.
== END 2023-09-24 09:13 | disposition home or self-care (01) ==
LOC: HO.MRI 09:12
PROVIDERS: PCP Internal Medicine; Visit Provider Internal Medicine
DX: R41.89 Other symptoms and signs involving cognitive functions and awareness (principal)
CPT/HCPCS: 70551

== ENCOUNTER 2023-11-02 15:14 | Outpatient (REF) | payer OTHER, SELFPAY | END 2023-11-02 15:15 | disposition home or self-care (01) | LOC: HO.XRAY 15:14 | PROVIDERS: PCP Internal Medicine; Visit Provider Internal Medicine | DX: R07.81 Pleurodynia (principal) | CPT/HCPCS: 71101 ==

== ENCOUNTER 2023-11-15 09:42 | Outpatient (REF) | payer OTHER, SELFPAY ==
[2023-11-15 10:00] LABS: MANUAL DIFF FLAG NO
[2023-11-15 11:23] LABS: Basophils Percent Auto 0.3 % (0-2); Eosinophils Absolute Auto 0.1 X10*3/uL (0.0-0.4); Eosinophils Percent Auto 1.3 % (0-4); Hematocrit 42.1 % (37.0-47.0); Hemoglobin 13.8 g/dl (12.0-16.0); Imm Gran Abs Auto 0.01 X10*3/uL (0.00-0.03); Imm Gran Pct Auto 0.1 % (0.0-0.4); Lymphocytes Absolute Auto 1.9 X10*3/uL (1.2-4.9); Lymphocytes Percent Auto 28.6 % (20-40); Mean Corpuscular HGB Conc 32.8 g/dl (31.0-35.0); Mean Corpuscular Hemoglobin 30.5 pg (27.0-33.0); Mean Corpuscular Volume 93.1 fL (80.0-98.0); Mean Platelet Volume 11.4 fL (9.4-12.3); Monocytes Absolute Auto 0.5 X10*3/uL (0.1-1.2); Monocytes Percent Auto 6.8 % (2-11); Neutrophils Absolute Auto 4.2 x10*3/uL (2.0-8.3); Neutrophils Percent Auto 62.9 % (45-73); Platelet Count 248 X10*3/uL (160-400); Red Blood Count 4.52 X10*6/uL (4.20-5.50); Red Cell Distribution Width 13.2 % (11.0-16.0); White Blood Count 6.7 X10*3/uL (4.8-10.8)
[2023-11-15 11:50] LABS: Creatinine Urine 132.62 mg/dL; Microalbum/Creatinine Ratio Ur 8.2 ug/mg cr (<30)
[2023-11-15 12:09] LABS: Alanine Aminotransferase 19 U/L (0-31); Albumin Level 4.4 g/dL (3.5-5.0); Alkaline Phosphatase 83 U/L (39-117); Anion Gap 11 (12-20); Aspartate Amino Transferase 15 U/L (5-31); Bilirubin Total 0.5 mg/dL (0.0-1.0); Blood Urea Nitrogen 10 mg/dL (9-16); Calcium 10.1 mg/dL (8.4-10.2); Carbon Dioxide 30 mmol/L (22-29); Chloride 104 mmol/L (96-108); Cholesterol 131 mg/dL (<200); Estimated Glomerular Filt Rate > 60; Glucose Fasting 155 mg/dL (60-99); HDL Cholesterol 54 mg/dL (>40); LDL Cholesterol Calculated 67 mg/dL (<100); Sodium 141 mmol/L (135-145); Total Protein 7.7 g/dL (6.5-8.0); Triglycerides 52 mg/dL (<150)
[2023-11-15 12:14] LABS: Thyroid Stimulating Hormone 2.69 uIU/mL (0.32-4.0); Vitamin D 25-OH Total 50.6 ng/mL (>30)
[2023-11-15 12:15] LABS: Syphilis Screen Nonreactive (Nonreactive)
[2023-11-15 12:17] LABS: Folate 14.1 ng/mL (> or = 4.0); Vitamin B12 1111 pg/mL (200-900)
== END 2023-11-15 09:43 | disposition home or self-care (01) ==
LOC: HO.LAB 09:42
PROVIDERS: PCP Internal Medicine; Visit Provider Internal Medicine
DX: E11.8 Type 2 diabetes mellitus with unspecified complications (principal); E55.9 Vitamin D deficiency, unspecified; E78.5 Hyperlipidemia, unspecified; R41.89 Other symptoms and signs involving cognitive functions and awareness; E53.8 Deficiency of other specified B group vitamins; E06.3 Autoimmune thyroiditis
CPT/HCPCS: 36415; 80053; 80061; 82043; 82306; 82570; 82607; 82746; 84443; 85025; 86780

== ENCOUNTER 2023-11-22 10:13 | Outpatient (AMB) | payer OTHER, SELFPAY ==
[2023-11-22 10:26] VITALS: BP 110/64; BMI 32.4
--- NOTE | 2023-11-22 10:26 | A.OFFPC_ITS ---
Vital Signs 11/22/23 10:26 Height 4 ft 10 in Weight 155 lb BMI 32.4 BP 110/64 Blood Pressure Location Lt brachial Position Sitting Intake Visit Reasons: dm Intake Note: Patient here for a follow up DM Supervisor Beam Department Required: No Accompanied by: Self / Same As Patient Allergies No Known Allergies [No Known Allergies*] Allergy (Verified 11/22/23 10:44) Medication List - Last Reconciled 11/22/23 by Karo Arenas MD acetaminophen (Tylenol Extra Strength) 500 mg PO Q6H PRN acyclovir 800 mg PO BID 7 days albuterol sulfate 90 mcg/actuation (ProAir HFA) 2 puffs inhalation Q4-6H PRN 30 days ascorbic acid (vitamin C) 500 mg PO DAILY aspirin (Adult Aspirin Regimen) 81 mg PO DAILY 30 days blood sugar diagnostic (OneTouch Verio test strips) As directed twice a day blood sugar diagnostic (OneTouch Verio test strips) 1 strip miscellaneous BID 90 days blood-glucose meter (DebtFolioTouch Verio Flex Meter) As directed cane As directed cholecalciferol (vitamin D3) 25 mcg PO DAILY 90 days fluticasone propionate 44 mcg/actuation (Flovent HFA) 2 puffs inhalation BID 30 days hydrocortisone 2.5% 1 appl topical TID PRN ibuprofen 600 mg PO Q8H PRN 30 days levothyroxine 50 mcg PO DAILY 90 days lisinopril 10 mg PO DAILY 90 days metformin 500 mg PO BID 90 days pantoprazole 40 mg PO DAILY 90 days simvastatin 40 mg PO BEDTIME vitamin B complex 1 tab PO DAILY zolpidem 10 mg PO BEDTIME PRN 30 days Tobacco use date assessed: 11/22/23 Fall risk assessment: No Falls in past year Last assessed Fall Risk: 11/22/23 Dental Screening Dental Screen Date: 11/22/23 Did you have a dental visit in the last 12 months?: No Did you have a dental problem in the last 6 months where you did not have access to dental care?: No Was dental information given to patient?: Patient has dentist HPI HPI Comments History of Present Illness Details This is a 73-year-old female with diabetes mellitus type 2, hypertension, hyperlipidemia and hypothyroidism that comes today for follow-up on her conditions. A1c within goal. Blood pressure stable. LDL within goal and TSH within normal limits. No chest pain or shortness of breath. Knee pain markedly improved will local injection done by ortho. [facility] Medical History (Updated 11/22/23 @ 11:53 by Karo Arenas MD) Mild recurrent major depression Hypercalcemia Dysphagia Hyperlipidemia LDL goal <70 Moderate asthma Age related osteoporosis Multinodular thyroid Left leg pain Diabetes Autoimmune thyroiditis Obesity (BMI 30-39.9) GERD (gastroesophageal reflux disease) Asthma Osteoarthritis Depression Dyslipidemia Thyroid nodule Insomnia Surgical History History of laparoscopic cholecystectomy Hx of colonoscopy Hx of wisdom tooth extraction Hx of tubal ligation Hx of appendectomy Family History Father Edema Mother Diabetes CVA (cerebral vascular accident) Hypertension Social History Household Members: None Housing: Apartment Alcohol intake: never Patient Tobacco Use Status: Never used Tobacco e-Cigarette/Vaping Use: Never Used Second Hand Smoke Exposure: No Advance Directives Date on File: 08/15/20 service: No Current occupational status: disabled Cognitive needs: No Hearing needs: No Vision needs: Yes Female Reproductive History Menstrual Age of Menarche: 15 Questionnaire PHQ-9 Over the last 2 weeks, how often have you been bothered by any of the following problems? 1. Little interest or pleasure in doing things: not at all 2. Feeling down, depressed, or hopeless: not at all 3. Trouble falling or staying asleep, or sleeping too much: not at all 4. Feeling tired or having little energy: not at all 5. Poor appetite or overeating: not at all 6. Feeling bad about yourself - or that you are a failure or have let yourself or your family down: not at all 7. Trouble concentrating on things, such as reading the newspaper or watching television: not at all 8. Moving or speaking so slowly that other people could have noticed. Or the opposite - being so fidgety or restless that you have been moving around a lot more than usual: not at all 9. Thoughts that you would be better off or of hurting yourself in some way: not at all Total score: 0 Depression Screening Interpretation: Negative Depression Screening Done: Yes 94083 - PHQ-9 Billing: Yes Source: Developed by Drs. Wilbert Garcia, Mary Vera, Dimitry Church and colleagues, with an educational amairani from [employer]. Thrive Questionnaire Date Thrive assessed: 11/22/23 I am a: Patient What is your living situation today?: I have a steady place to live Within the past 12 months, did the food you bought not last and you didn't have the money to get more?: Never true Within the past 12 months, did you worry whether your food would run out before you got money to buy more?: Never true Do you have trouble paying for medicines?: No Do you have trouble getting transportation to medical appointments?: No Do you have trouble paying your heating and electricity bill?: No Do you have trouble taking care of your child, family member or friend?: No Do you have trouble with day-to-day activities such as bathing, preparing meals, shopping, managing finances, etc.?: No Are you currently unemployed and looking for a job?: No Are you interested in more education?: No Please select the resources that you would like help with: None Currently or been in a relationship where the following occur: no concerns reported THRIVE Score: 0 AUDIT C Alcohol Use Questionnaire (AUDIT-C) 1. How often do you have a drink containing alcohol?: Never Total Score: 0 LIZZETTE-7 AMB Questionnaire LIZZETTE-7 Date LIZZETTE - 7 assessed: 11/22/23 Feeling nervous, anxious, or on edge: 1 = Several days Not being able to stop or control worryin = Not at all Worrying too much about different things: 1 = Several days Trouble relaxin = Not at all Being so restless that it is hard to sit still: 0 = Not at all Becoming easily annoyed or irritable: 0 = Not at all Feeling afraid as if something awful might happen: 0 = Not at all Total LIZZETTE-7 score (0-4 normal; 5-9 mild; 10-14 moderate; 15-21 severe): 2 Source: Developed by Drs. Wilbert Garcia, Dimitry Jeong and colleagues, with an educational amairani from [employer]. LIZZETTE-7 Assessment Billing LIZZETTE-7 Assessment Tool: LIZZETTE-7 Assessment 51555 Review of Systems Const All systems reviewed & are unremarkable except as noted in HPI and below Eyes Reports no additional complaints, Denies change in vision and Denies other visual disturbances Card Denies chest pain at rest, Denies chest pain with activity, Denies edema, Denies irregular heart rhythm, Denies claudication, Denies dyspnea, Denies dyspnea on exertion, Denies orthopnea, Denies paroxysmal nocturnal dyspnea and Denies slow heart rate Resp Denies cough, Denies dyspnea and Denies dyspnea on exertion GI Denies abdominal pain, Denies change in bowel habits, Denies excessive flatus, Denies nausea and Denies vomiting Denies urinary incontinence, Denies urinary hesitancy and Denies urinary urgency Musc Denies atrophy, Denies deformity and Denies limited range of motion Skin/Breast Denies bleeding lesions, Denies changing lesions and Denies rash Physical exam (Primary Care) Vital Signs: Last Vital Signs BP 110/64 11/22/23 10:26 BMI result Body Mass Index 32.4 Tobacco/Smoking Status: Tobacco use Status Tobacco use date assessed 11/22/23 11/22/23 10:38 Patient Tobacco Use Status Never used Tobacco 11/22/23 10:38 e-Cigarette/Vaping Use Never Used 11/22/23 10:38 PHQ-9: PHQ-9 Score PHQ-9: Total score 0 11/22/23 11:03 Depression Screening Interpretation: Negative Thrive Assessment: Date of Thrive Assessment Date Thrive assessed 11/22/23 11/22/23 10:38 Currently or been in a relationship where the following occur: no concerns reported Eyes General: appearance normal, both eyes and all related structures Eyelids: Yes eyelids normal Conjunctivae: conjunctivae normal Neck Neck: Yes normal visual inspection and Yes supple Resp Effort & Inspection: normal respiratory effort Auscultation: clear to auscultation bilaterally Cardio Jugular venous distension: no JVD Rate: regular rate Rhythm: regular rhythm Heart sounds: S1 normal heart sound present and S2 normal heart sound present Extrem General: Yes full ROM Office Procedures Flu Questionnaire Does the patient have a severe egg allergy?: No Results AMB Hemoglobin A1c AMB Hemoglobin A1c 6.7 % Last Edit by JOSE Griffith on 11/22/23 11:0 3 Immunizations flu vacc [id number] 6mos up(PF) 60 mcg(15 mcgx4)/0.5 mL IM syringe Performing Provider: Karo Arenas MD [facility] Documented (not given) by: JOSE Griffith on 11/22/23 10:39 Reason Not Given: Patient Refused Results Reviewed Results Reviewed: Laboratory Last Values Hgb A1c (Clinic) 6.7 % (4.0-6.0) H 11/22/23 10:25 Assessment and Plan Assessment & Plan (1) Diabetes: Code(s): E11.9 - Type 2 diabetes mellitus without complications Qualifiers: Diabetes mellitus type: type 2 Diabetes mellitus director long term care insulin use: without director long term care use Diabetes mellitus complication status: without complication Qualified Code(s): E11.9 - Type 2 diabetes mellitus without complications Plan: Continue metformin. A1c goal is equal or less than 7%. (2) Hyperlipidemia LDL goal <70: Code(s): E78.5 - Hyperlipidemia, unspecified Plan: Continue statins. LDL goal is less than 70. (3) Autoimmune thyroiditis: Code(s): E06.3 - Autoimmune thyroiditis Plan: Continue levothyroxine. Monitor TSH. (4) Essential hypertension: Code(s): I10 - Essential (primary) hypertension Plan: Continue lisinopril. Blood pressure goal is equal or less than 130/80. Orders: Orders Influenza [id number] Immunization Today Z23 - Encounter for immunization Microalbumin, Random (w Creat) 4 Months E11.9 - Type 2 diabetes mellitus without complications Vitamin D 25-OH Total 4 Months E55.9 - Vitamin D deficiency, unspecified Thyroid Stimulating Hormone 4 Months E06.3 - Autoimmune thyroiditis AMB Hemoglobin A1c Today E11.8 - Type 2 diabetes mellitus with unspecified complications Lipid Panel 4 Months E78.5 - Hyperlipidemia, unspecified Vitamin B12 and Folate 4 Months E53.8 - Deficiency of other specified B group vitamins Comprehensive [place]. Panel Fast 4 Months E11.8 - Type 2 diabetes mellitus with unspecified complications Medications: New fluticasone furoate 50 mcg/actuation (Arnuity Ellipta) 1 inh inhalation DAILY 30 days 30 ea 2RF J45.909 - Unspecified asthma, uncomplicated blood pressure test kit-large (Advocate Blood Pressure Monitor kit) As directed 1 ea 0RF I10 - Essential (primary) hypertension Refilled albuterol sulfate 90 mcg/actuation (ProAir HFA) 2 puffs inhalation Q4-6H 30 days PRN 8.5 grams 6RF bronchospasm Coding Level of Care Code Est Pt Level 4 (33596) Diagnoses Type 2 diabetes mellitus without complication, without long-term current use of insulin E11.9 Diabetes mellitus type: type 2 Diabetes mellitus director long term care insulin use: without director long term care use Diabetes mellitus complication status: without complication Hyperlipidemia LDL goal <70 E78.5 Autoimmune thyroiditis E06.3 Essential hypertension I10 Additional Codes LIZZETTE-7 Assessment Billing - LIZZETTE-7 Assessment Tool: LIZZETTE-7 Assessment 28145 ([id number]) Time Spent (min) 23
== END 2023-11-22 10:54 | disposition home or self-care (01) ==
PROVIDERS: PCP Internal Medicine; Visit Provider Internal Medicine
DX: E11.9 Type 2 diabetes mellitus without complications (principal); E78.5 Hyperlipidemia, unspecified; E06.3 Autoimmune thyroiditis; I10 Essential (primary) hypertension
CPT/HCPCS: 83036; 99214

== ENCOUNTER 2023-11-26 10:20 | Outpatient (AMB) | payer OTHER, SELFPAY ==
--- NOTE | 2023-11-26 10:49 | A.OFFVIS_ITS ---
Intake Intake Visit Reasons: Ov- B/L knee pain last injection 08/23/23 Intake Note: Ese is a 73 year old female who presents today for a follow up of her bilateral knee pain. at the last appointment on 08/23/23 the left knee was injected and it was recommended that she follow up with pain mgmt however patient declined referral. The injection was helpful and she would like to repeat her injection today in the left knee. Allergies No Known Allergies [No Known Allergies*] Allergy (Verified 11/22/23 10:44) HPI Ov- B/L knee pain last injection 08/23/23 HPI Details Ese is a 73 year old woman who presents with complaints of bilateral knee pain. She was last seen on 08/23/23 for left knee pain & LE neuropathy, and received a left knee injection, which she says was helpful. She has pain with daily activity but it is tolerable and she doesn't feel like she needs another injection today. [facility] Medical History (Updated 11/22/23 @ 11:53 by Karo Arenas MD) Mild recurrent major depression Hypercalcemia Dysphagia Hyperlipidemia LDL goal <70 Moderate asthma Age related osteoporosis Multinodular thyroid Left leg pain Diabetes Autoimmune thyroiditis Obesity (BMI 30-39.9) GERD (gastroesophageal reflux disease) Asthma Osteoarthritis Depression Dyslipidemia Thyroid nodule Insomnia Surgical History History of laparoscopic cholecystectomy Hx of colonoscopy Hx of wisdom tooth extraction Hx of tubal ligation Hx of appendectomy Family History Father Edema Mother Diabetes CVA (cerebral vascular accident) Hypertension Social History Household Members: None Housing: Apartment Alcohol intake: never Patient Tobacco Use Status: Never used Tobacco e-Cigarette/Vaping Use: Never Used Second Hand Smoke Exposure: No Advance Directives Date on File: 08/15/20 service: No Current occupational status: disabled Cognitive needs: No Hearing needs: No Vision needs: Yes Female Reproductive History Menstrual Age of Menarche: 15 Review of Systems Const All systems reviewed & are unremarkable except as noted in HPI and below Physical Exam Const General: no acute distress, alert and awake Orientation/consciousness: patient oriented x3 HEENT Head: Yes normocephalic and Yes atraumatic Eyes EOM: EOMs intact bilaterally Resp Effort & Inspection: normal respiratory effort and able to speak in complete sentences Cardio Jugular venous distension: no JVD Skin General skin exam: turgor normal Rashes: no rashes Neuro General: patient oriented x3 Extrem Other: 0-125 no effusion Psych Appearance: grossly normal Affect: normal affect Attitude: cooperative Assessment & Plan Assessment & Plan (1) Left knee pain: Code(s): M25.562 - Pain in left knee Plan: Doing well No intervention warranted f/u prn Plan Prepared for Jason Orellana MD by Dung Akins, medical chief technician, on 11/26/23 at 10:56 AM, EST. Coding Level of Care Code Est Pt Level 3 (99970) Diagnoses Left knee pain M25.562
== END 2023-11-26 11:39 | disposition home or self-care (01) ==
PROVIDERS: PCP Internal Medicine; Visit Provider Orthopaedic Surgery
DX: M25.562 Pain in left knee (principal)
CPT/HCPCS: 99212

== ENCOUNTER → 2023-11-26 10:20 | Outpatient (BNVA) | payer OTHER, SELFPAY | PROVIDERS: PCP Internal Medicine; Visit Provider Orthopaedic Surgery | DX: M25.562 Pain in left knee (principal); M25.561 Pain in right knee | CPT/HCPCS: 99212 ==

== ENCOUNTER 2024-01-21 09:56 | Outpatient (AMB) | payer OTHER, SELFPAY ==
--- NOTE | 2024-01-21 10:00 | MHC.OFFVIS ---
Intake Vital Signs 01/21/24 10:03 Height 4 ft 10 in Weight 155 lb BMI 32.4 Intake Visit Reasons: OV - Left Knee OA - Increased Swelling Intake Note: Ese is a 73 year old female who presents today for a follow up of her bilateral knee pain. Last injection in the left knee 08/23/23. At her last visit injection was not warranted as she was relatively asymptomatic. She now reports that her pain has increased and is radiating down her leg. She would like to have the left knee injected today. Allergies No Known Allergies [No Known Allergies*] Allergy (Verified 11/22/23 10:44) HPI OV - Left Knee OA - Increased Swelling HPI Details Ese is a 73 year old female who presents today for a follow up of her bilateral knee pain. Last injection in the left knee 08/23/23. At her last visit injection was not warranted as she was relatively asymptomatic. She now reports that her pain has increased and is radiating down her leg. She would like to have the left knee injected today. PFSH Medical History Mild recurrent major depression Hypercalcemia Dysphagia Hyperlipidemia LDL goal <70 Moderate asthma Age related osteoporosis Multinodular thyroid Left leg pain Diabetes Autoimmune thyroiditis Obesity (BMI 30-39.9) GERD (gastroesophageal reflux disease) Asthma Osteoarthritis Depression Dyslipidemia Thyroid nodule Insomnia Surgical History History of laparoscopic cholecystectomy Hx of colonoscopy Hx of wisdom tooth extraction Hx of tubal ligation Hx of appendectomy Family History Father Edema Mother Diabetes CVA (cerebral vascular accident) Hypertension Social History Household Members: None Housing: Apartment Alcohol intake: never Patient Tobacco Use Status: Never used Tobacco e-Cigarette/Vaping Use: Never Used Second Hand Smoke Exposure: No Advance Directives Date on File: 08/15/20 service: No Current occupational status: disabled Cognitive needs: No Hearing needs: No Vision needs: Yes Female Reproductive History Menstrual Age of Menarche: 15 Physical Exam Vital Signs: BMI result Body Mass Index 32.4 Extrem Other: Mild effusion and ttp left lateral joint line Office Procedures Joint Injection/Drain Joint Injection/Drain Details: Injected 1 mL of Decadron and 3 mL 1% lidocaine and 3 mL of 0.25% Marcaine. Site was prepped using aseptic technique. Patient tolerated the procedure well. Primary Site: left knee Approach Used: anterolateral Coding 09799 - Large joint Procedure code (CPT) selection complete Results Reviewed Results Reviewed: I personally reviewed relevant radiographs. Mild to moderate left knee OA Assessment & Plan Assessment & Plan (1) Arthritis of knee, left: Code(s): M17.12 - Unilateral primary osteoarthritis, left knee Plan: Left knee OA. I injected left knee. The hyperglycemic effect of steroids was discussed. (2) Type 2 diabetes mellitus with unspecified complications: Code(s): E11.8 - Type 2 diabetes mellitus with unspecified complications Plan: The hyperglycemic effect of steroids was discussed. Plan I injected her left knee today, follow up no sooner than 3 months for repeat injected Coding Level of Care Code Est Pt Level 4 (74478) Diagnoses Arthritis of knee, left M17.12 Type 2 diabetes mellitus with unspecified complications E11.8 CPT Codes Coding - Large joint: 07122 - Large joint ([id number])
[2024-01-21 10:03] VITALS: BMI 32.4
== END 2024-01-21 10:21 | disposition home or self-care (01) ==
PROVIDERS: PCP Internal Medicine; Visit Provider Orthopaedic Surgery
DX: M17.12 Unilateral primary osteoarthritis, left knee (principal); E11.9 Type 2 diabetes mellitus without complications
CPT/HCPCS: 20610; 99213

== ENCOUNTER → 2024-01-21 09:56 | Outpatient (BNVA) | payer OTHER, SELFPAY | PROVIDERS: PCP Internal Medicine; Visit Provider Orthopaedic Surgery | DX: M17.12 Unilateral primary osteoarthritis, left knee (principal); E11.8 Type 2 diabetes mellitus with unspecified complications | CPT/HCPCS: 20610; 99212; J0665; J1100 ==

== ENCOUNTER 2024-02-11 09:47 | Outpatient (REF) | payer OTHER, SELFPAY ==
--- NOTE | ~2024-02-11 | MM_ITS ---
EXAMINATION: BONE DENSITOMETRY CLINICAL INDICATION: Unspecified menopausal and perimenopausal disorder. COMPARISON: Previous BD dated 11/25/2021 and baseline BD dated 04/15/2010. TECHNIQUE: Using a [employer] DXA System (software version: 13.1) manufactured by [employer], dual-energy x-ray absorptiometry was performed of the lumbar spine and left hip. The images are of good technical quality. Summary results are attached. FINDINGS: LEFT FEMUR, NECK: Current: BMD 0.768 g/cm2, Z-score -0.3, T-score -1.9, osteopenia. Prior: BMD 0.739 g/cm2. Baseline: BMD 0.870 g/cm2. LEFT FEMUR, TOTAL: Current: BMD 0.938 g/cm2, Z-score 0.9, T-score -0.6, normal, 0.1% decrease from previous, 6.6% decrease from baseline (<5% change is not significant). Prior: BMD 0.939 g/cm2. Baseline: BMD 1.004 g/cm2. AP SPINE L1-L4: Current: BMD 0.892 g/cm2, Z-score -0.8, T-score -2.4, osteopenia, 1.9% decrease from previous, 14.1% decrease from baseline (<5% change is not significant). Prior: BMD 0.909 g/cm2. Baseline: BMD 1.038 g/cm2. IDENTIFIED RISK FACTORS: Menopause. HISTORY OF FRACTURE: None listed. MEDICATIONS: Vitamin D. MM/XR DEXA axial skeleton IMPRESSION: 1. DIAGNOSIS: Osteopenia based on the lowest T-score value of -2.4 in the lumbar spine applying World Health Organization criteria. 2. 10-YEAR FRACTURE RISK PREDICTION, FRAX: Major osteoporotic fracture (clinical spine, forearm, hip or shoulder) 6.7%. Hip fracture 1.3%. 3. Treatment Recommendations: NOF guidelines recommend consideration for treatment in postmenopausal women and men age 50 and older presenting with the following: -A hip or vertebral (clinical or morphometric) fracture. -T-score less than or equal to -2.5 at the femoral neck or spine after appropriate evaluation to exclude secondary causes. -Low bone mass at the hip or spine and a 10-year fracture probability by FRAX of greater than or equal to 3% for hip fracture or greater than or equal to 20% for major osteoporotic fracture based on the [place] adapted WHO algorithm. 4. Other Recommendations: All treatment decisions require clinical judgment and consideration of individual patient factors, including patient preferences, comorbidities, previous drug use, risk factors not captured in the FRAX model (e.g. frailty, falls, vitamin D deficiency, increased bone turnover, interval significant decline in bone density) and possible under or overestimation of fracture risk by FRAX. Additional medical evaluation for secondary cause of low bone mineral density may be appropriate. FUTURE SCAN RECOMMENDATION: People with diagnosed cases of osteoporosis or at high risk for fracture should have regular bone mineral density tests. For patients eligible for Medicare, routine testing is allowed once every 2 years. The testing frequency can be increased to one year for patients who have rapidly progressing disease, those who are receiving or discontinuing medical therapy to restore bone mass, or have additional risk factors.
== END 2024-02-11 09:48 | disposition home or self-care (01) ==
LOC: HO.MAMMO 09:47
PROVIDERS: Visit Provider Internal Medicine
DX: Z13.820 Encounter for screening for osteoporosis (principal); Z78.0 Asymptomatic menopausal state
CPT/HCPCS: 77080

== ENCOUNTER 2024-03-15 09:16 | Outpatient (REF) | payer OTHER, SELFPAY ==
[2024-03-15 10:21] LABS: Creatinine Urine 123.97 mg/dL; Microalbum/Creatinine Ratio Ur 4.8 ug/mg cr (<30)
[2024-03-15 10:24] LABS: Alanine Aminotransferase 13 U/L (0-31); Albumin Level 4.4 g/dL (3.5-5.0); Alkaline Phosphatase 78 U/L (39-117); Anion Gap 11 (12-20); Aspartate Amino Transferase 14 U/L (5-31); Bilirubin Total 0.5 mg/dL (0.0-1.0); Blood Urea Nitrogen 14 mg/dL (9-16); Calcium 9.9 mg/dL (8.4-10.2); Carbon Dioxide 28 mmol/L (22-29); Chloride 106 mmol/L (96-108); Cholesterol 121 mg/dL (<200); Estimated Glomerular Filt Rate > 60; Glucose Fasting 157 mg/dL (60-99); HDL Cholesterol 52 mg/dL (>40); LDL Cholesterol Calculated 60 mg/dL (<100); Potassium 4.2 mmol/L (3.3-5.1); Sodium 141 mmol/L (135-145); Total Protein 7.4 g/dL (6.5-8.0); Triglycerides 49 mg/dL (<150)
[2024-03-15 10:41] LABS: Thyroid Stimulating Hormone 2.12 uIU/mL (0.32-4.0); Vitamin D 25-OH Total 47.4 ng/mL (>30)
[2024-03-15 11:10] LABS: Folate 13.5 ng/mL (> or = 4.0); Vitamin B12 859 pg/mL (200-900)
== END 2024-03-15 09:17 | disposition home or self-care (01) ==
LOC: HO.LAB 09:16
PROVIDERS: PCP Internal Medicine; Visit Provider Internal Medicine
DX: E55.9 Vitamin D deficiency, unspecified (principal); E78.5 Hyperlipidemia, unspecified; E53.8 Deficiency of other specified B group vitamins; E11.9 Type 2 diabetes mellitus without complications; E06.3 Autoimmune thyroiditis; E11.8 Type 2 diabetes mellitus with unspecified complications
CPT/HCPCS: 36415; 80053; 80061; 82043; 82306; 82570; 82607; 82746; 84443

== ENCOUNTER 2024-03-20 10:46 | Outpatient (AMB) | payer OTHER, SELFPAY ==
--- NOTE | 2024-03-20 10:54 | MHC.PC.OV ---
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 Accompanied by: Daughter Allergies No Known Allergies [No Known Allergies*] Allergy (Verified 03/20/24 11:18) Medication List - Last Reconciled 03/20/24 by Karo Arenas MD acetaminophen (Tylenol Extra Strength) 500 mg PO Q6H PRN acyclovir 800 mg PO BID 7 days albuterol sulfate 90 mcg/actuation (ProAir HFA) 2 puffs inhalation Q4-6H PRN 30 days aspirin (Adult Aspirin Regimen) 81 mg PO DAILY 30 days blood pressure test kit-large (Advocate Blood Pressure Monitor kit) As directed blood sugar diagnostic (DoubleRecallTouch Verio test strips) As directed twice a day blood sugar diagnostic (DoubleRecallTouch Verio test strips) 1 strip miscellaneous BID 90 days blood-glucose meter ([employer] Verio Flex Meter) As directed cane As directed cholecalciferol (vitamin D3) 25 mcg PO DAILY 90 days fluticasone furoate 50 mcg/actuation (Arnuity Ellipta) 1 inh inhalation DAILY 30 days lancets ([employer] Delica Safety Lancet) As directed two times per day levothyroxine 50 mcg PO DAILY 90 days lisinopril 10 mg PO DAILY 90 days metformin 500 mg PO BID 90 days pantoprazole 40 mg PO DAILY 90 days sertraline 25 mg PO DAILY 90 days simvastatin 40 mg (1/2 x 80 mg) PO BEDTIME 90 days vitamin B complex 1 tab PO DAILY zolpidem 10 mg PO BEDTIME PRN 30 days Tobacco use date assessed: 11/22/23 Fall risk assessment: No Falls in past year Last assessed Fall Risk: 03/20/24 Dental Screening Dental Screen Date: 11/22/23 HPI HPI Comments History of Present Illness Details This is a 73-year-old female with diabetes mellitus type 2, hypertension, hyperlipidemia, mild major depression, autoimmune thyroiditis and chronic GERD that comes today accompanied by daughter for follow-up on her conditions. A1c within goal. Blood pressure stable. LDL within goal. Depression well controlled with sertraline. Last TSH was normal. GERD stable with pantoprazole but still feels occasional heartburn. Will have upper GI series. She also complains of difficulty swallowing solids occasionally that resolve on its own. Has thyroid nodules and will have an ultrasound of the thyroid. [facility] Medical History (Updated 03/20/24 @ 12:32 by Karo Arenas MD) Mild recurrent major depression Hypercalcemia Dysphagia Hyperlipidemia LDL goal <70 Moderate asthma Age related osteoporosis Multinodular thyroid Left leg pain Diabetes Autoimmune thyroiditis Obesity (BMI 30-39.9) GERD (gastroesophageal reflux disease) Asthma Osteoarthritis Depression Dyslipidemia Thyroid nodule Insomnia Surgical History History of laparoscopic cholecystectomy Hx of colonoscopy Hx of wisdom tooth extraction Hx of tubal ligation Hx of appendectomy Family History Father Edema Mother Diabetes CVA (cerebral vascular accident) Hypertension Social History Household Members: None Housing: Apartment Alcohol intake: never Patient Tobacco Use Status: Never used Tobacco e-Cigarette/Vaping Use: Never Used Second Hand Smoke Exposure: No Advance Directives Date on File: 08/15/20 service: No Current occupational status: disabled Cognitive needs: No Hearing needs: No Vision needs: Yes Female Reproductive History Menstrual Age of Menarche: 15 Questionnaire Thrive Questionnaire Date Thrive assessed: 11/22/23 LIZZETTE-7 AMB Questionnaire LIZZETTE-7 Date LIZZETTE - 7 assessed: 11/22/23 Source: Developed by Drs. Wilbert Garcia, Mary Vera, Dimitry Church and colleagues, with an educational amairani from [employer]. Review of Systems Const All systems reviewed & are unremarkable except as noted in HPI and below Eyes Reports no additional complaints, Denies change in vision and Denies other visual disturbances Card Denies chest pain at rest, Denies chest pain with activity, Denies edema, Denies irregular heart rhythm, Denies claudication, Denies dyspnea, Denies dyspnea on exertion, Denies orthopnea, Denies paroxysmal nocturnal dyspnea and Denies slow heart rate Resp Denies cough, Denies dyspnea and Denies dyspnea on exertion Physical exam (Primary Care) Vital Signs: Last Vital Signs BP 120/70 03/20/24 10:56 BMI result Body Mass Index 32.2 Tobacco/Smoking Status: Tobacco use Status Tobacco use date assessed 11/22/23 03/20/24 11:06 Patient Tobacco Use Status Never used Tobacco 03/20/24 11:06 e-Cigarette/Vaping Use Never Used 03/20/24 11:06 Thrive Assessment: Date of Thrive Assessment Date Thrive assessed 11/22/23 03/20/24 11:06 Resp Effort & Inspection: normal respiratory effort Auscultation: clear to auscultation bilaterally Cardio Jugular venous distension: no JVD Rate: regular rate Rhythm: regular rhythm Heart sounds: S1 normal heart sound present and S2 normal heart sound present Extrem General: Yes full ROM Results AMB Hemoglobin A1c AMB Hemoglobin A1c 6.7 % Last Edit by JOSE Griffith on 03/20/24 11:07 Results Reviewed Results Reviewed: Laboratory Last Values Hgb A1c (Clinic) 6.7 % (4.0-6.0) H 03/20/24 10:54 Assessment and Plan Assessment & Plan (1) Diabetes: Code(s): E11.9 - Type 2 diabetes mellitus without complications Qualifiers: Diabetes mellitus type: type 2 Diabetes mellitus superintendent marine oil terminal insulin use: without senior care use Diabetes mellitus complication status: without complication Qualified Code(s): E11.9 - Type 2 diabetes mellitus without complications Plan: Continue metformin. A1c goal is equal or less than 7%. (2) Mild recurrent major depression: Code(s): F33.0 - Major depressive disorder, recurrent, mild Plan: Continue sertraline. (3) Chronic GERD: Code(s): K21.9 - Gastro-esophageal reflux disease without esophagitis Plan: Continue pantoprazole. Upper GI series ordered. (4) Hyperlipidemia LDL goal <70: Code(s): E78.5 - Hyperlipidemia, unspecified Plan: Continue statins. Keep LDL less than 70. (5) Autoimmune thyroiditis: Code(s): E06.3 - Autoimmune thyroiditis Plan: Continue levothyroxine. (6) Essential hypertension: Code(s): I10 - Essential (primary) hypertension Plan: Continue lisinopril. Blood pressure goal is equal or less than 130/80. Orders: Orders AMB Hemoglobin A1c Today E11.9 - Type 2 diabetes mellitus without complications Lipid Panel 4 Months E78.5 - Hyperlipidemia, unspecified Microalbumin, Random (w Creat) 4 Months E11.9 - Type 2 diabetes mellitus without complications Thyroid Stimulating Hormone 4 Months E06.3 - Autoimmune thyroiditis US thyroid Today E04.2 - Nontoxic multinodular goiter FL upper GI series Today K21.9 - Gastro-esophageal reflux disease without esophagitis FL barium swallow Today R13.10 - Dysphagia, unspecified Vitamin D 25-OH Total 4 Months E55.9 - Vitamin D deficiency, unspecified Medications: New simvastatin 40 mg PO BEDTIME 90 tabs 1RF 90 days Discontinued simvastatin Discontinued Reason: Patient Completed Course 40 mg (1/2 x 80 mg) PO BEDTIME 90 days 45 tabs 1RF Coding Level of Care Code Est Pt Level 4 (91163) Diagnoses Type 2 diabetes mellitus without complication, without long-term current use of insulin E11.9 Diabetes mellitus type: type 2 Diabetes mellitus superintendent marine oil terminal insulin use: without superintendent marine oil terminal use Diabetes mellitus complication status: without complication Mild recurrent major depression F33.0 Chronic GERD K21.9 Hyperlipidemia LDL goal <70 E78.5 Autoimmune thyroiditis E06.3 Essential hypertension I10 Time Spent (min) 25
[2024-03-20 10:56] VITALS: BP 120/70; BMI 32.2
== END 2024-03-20 11:31 | disposition home or self-care (01) ==
PROVIDERS: PCP Internal Medicine; Visit Provider Internal Medicine
DX: E11.69 Type 2 diabetes mellitus with other specified complication (principal); F33.0 Major depressive disorder, recurrent, mild; K21.9 Gastro-esophageal reflux disease without esophagitis; E78.5 Hyperlipidemia, unspecified; E06.3 Autoimmune thyroiditis; I10 Essential (primary) hypertension
CPT/HCPCS: 83036; 99214

== ENCOUNTER 2024-04-13 09:52 | Outpatient (REF) | payer OTHER, SELFPAY ==
--- NOTE | ~2024-04-13 | US_ITS ---
EXAMINATION: US THYROID CLINICAL INFORMATION: Nontoxic multinodular goiter. COMPARISON: Thyroid ultrasound 06/24/2022 and 10/21/2021. TECHNIQUE: Linear transducer jacobs-scale and color Doppler examination with attention to the region of the thyroid. FINDINGS: SIZE: Measurements of the thyroid lobes and nodules are given in sagittal, anteroposterior and transverse dimensions respectively. Right Thyroid Lobe: 3.5 x 1.4 x 1.4 cm, volume 3.5 mL. Previously 3.7 x 1.5 x 1.4 cm, volume 4.0 mL. Parenchyma: The gland echotexture is mildly diffusely heterogeneous. Thyroid vascularity is normal. Left Thyroid Lobe: 3.5 x 1.2 x 1.1 cm, volume 2.4 mL. Previously 3.4 x 1.1 x 1.1 cm, volume 2.2 mL. Parenchyma: The gland echotexture is mildly diffusely heterogeneous. Thyroid vascularity is normal. Isthmus: 0.3 cm in maximum AP dimension. Previously 0.3 cm. No focal thyroid nodule is seen. NODES: No lymphadenopathy is seen in the tissue surrounding the thyroid gland. US/US thyroid IMPRESSION: No suspicious thyroid nodules. Mildly diffusely heterogeneous. Previously identified left thyroid nodule not appreciated today. ACR TI-RADS RECOMMENDATION REFERENCE: Ultrasound-guided fine-needle aspiration, follow up ultrasound, no further followup. * TR1 (0 point) and TR2 (2 points): No FNA or followup * TR3 (3 points): FNA if more than or equal to 2.5 cm in maximum dimension, follow up ultrasound in 1, 3 and 5 years if 1.5 to 2.4 cm in maximum dimension. * TR4 (4-6 points): FNA if more than or equal to 1.5 cm in maximum dimension, follow up ultrasound in 1, 2, 3 and 5 years if 1 to 1.4 cm in maximum dimension. * TR5 (more than or equal to 7 points): FNA if more than or equal to 1 cm in maximum dimension, follow up ultrasound every year for 5 years if 0.5 to 0.9 cm in maximum dimension. * TR3, TR4 or TR5 nodules that are below the size threshold for follow up receive no followup.
== END 2024-04-13 09:53 | disposition home or self-care (01) ==
LOC: HO.HMGCX 09:52
PROVIDERS: PCP Internal Medicine; Visit Provider Internal Medicine
DX: E04.2 Nontoxic multinodular goiter (principal)
CPT/HCPCS: 76536

== ENCOUNTER 2024-06-26 09:17 | Outpatient (REF) | payer OTHER, SELFPAY | END 2024-06-26 09:18 | disposition home or self-care (01) | LOC: HO.XRAY 09:17 | PROVIDERS: PCP Internal Medicine; Visit Provider Internal Medicine | DX: Z13.89 Encounter for screening for other disorder (principal) ==

== ENCOUNTER 2024-07-12 09:26 | Outpatient (AMB) | payer OTHER, SELFPAY ==
[2024-07-12 09:40] VITALS: BP 126/70; BMI 32.0
--- NOTE | 2024-07-12 09:40 | A.OFFPC_ITS ---
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 Accompanied by: Daughter Allergies No Known Allergies [No Known Allergies*] Allergy (Verified 07/12/24 10:09) Medication List - Last Reconciled 07/12/24 by Karo Arenas MD acetaminophen (Tylenol Extra Strength) 500 mg PO Q6H PRN acyclovir 800 mg PO BID 7 days albuterol sulfate 90 mcg/actuation (ProAir HFA) 2 puffs inhalation Q4-6H PRN 30 days aspirin (Adult Aspirin Regimen) 81 mg PO DAILY 30 days blood pressure test kit-large (Advocate Blood Pressure Monitor kit) As directed blood sugar diagnostic (DownstreamTouch Verio test strips) As directed twice a day blood sugar diagnostic (OneTouch Verio test strips) 1 strip miscellaneous BID 90 days blood-glucose meter ([employer] Verio Flex Meter) As directed cane As directed cholecalciferol (vitamin D3) 25 mcg PO DAILY 90 days fluticasone furoate 50 mcg/actuation (Arnuity Ellipta) 1 inh inhalation DAILY 30 days lancets ([employer] Delica Safety Lancet) As directed two times per day levothyroxine 50 mcg PO DAILY 90 days lisinopril 10 mg PO DAILY 90 days metformin 500 mg PO BID 90 days pantoprazole 40 mg PO DAILY 90 days simvastatin 40 mg PO BEDTIME 90 days vitamin B complex 1 tab PO DAILY zolpidem 10 mg PO BEDTIME PRN 30 days Tobacco use date assessed: 11/22/23 Fall risk assessment: No Falls in past year Last assessed Fall Risk: 07/12/24 Dental Screening Dental Screen Date: 07/12/24 Did you have a dental visit in the last 12 months?: No Did you have a dental problem in the last 6 months where you did not have access to dental care?: No Was dental information given to patient?: Patient has dentist HPI HPI Comments History of Present Illness Details This is a 74-year-old female with diabetes mellitus type 2, hypertension, hyperlipidemia and mild major depression that comes today accompanied by daughter complaining of pain of right clavicle and feeling a protuberant at the right clavicle medially. A1c within goal. Blood pressure stable. LDL within goal. Depression well controlled with medications. [facility] Medical History (Updated 07/12/24 @ 10:16 by Karo Arenas MD) Mild recurrent major depression Hypercalcemia Dysphagia Hyperlipidemia LDL goal <70 Moderate asthma Age related osteoporosis Multinodular thyroid Left leg pain Diabetes Autoimmune thyroiditis Obesity (BMI 30-39.9) GERD (gastroesophageal reflux disease) Asthma Osteoarthritis Depression Dyslipidemia Thyroid nodule Insomnia Surgical History History of laparoscopic cholecystectomy Hx of colonoscopy Hx of wisdom tooth extraction Hx of tubal ligation Hx of appendectomy Family History Father Edema Mother Diabetes CVA (cerebral vascular accident) Hypertension Social History Household Members: None Housing: Apartment Alcohol intake: never Patient Tobacco Use Status: Never used Tobacco e-Cigarette/Vaping Use: Never Used Second Hand Smoke Exposure: No Advance Directives Date on File: 08/15/20 service: No Current occupational status: disabled Cognitive needs: No Hearing needs: No Vision needs: Yes Female Reproductive History Menstrual Age of Menarche: 15 Questionnaire Thrive Questionnaire Date Thrive assessed: 11/22/23 LIZZETTE-7 AMB Questionnaire LIZZETTE-7 Date LIZZETTE - 7 assessed: 11/22/23 Source: Developed by Drs. Wilbert Garcia, Mary Vera, Dimitry Church and colleagues, with an educational amairani from [employer]. Review of Systems Const All systems reviewed & are unremarkable except as noted in HPI and below Card Denies chest pain at rest, Denies chest pain with activity, Denies edema, Denies irregular heart rhythm, Denies claudication, Denies dyspnea, Denies dyspnea on exertion, Denies orthopnea, Denies paroxysmal nocturnal dyspnea and Denies slow heart rate Resp Denies cough, Denies dyspnea and Denies dyspnea on exertion Physical exam (Primary Care) Vital Signs: Last Vital Signs BP 126/70 07/12/24 09:40 BMI result Body Mass Index 32.0 BMI Assessment/Plan discussion: High BMI High, discussed plan: lifestyle, weight reduction, dietary and physical activity Tobacco/Smoking Status: Tobacco use Status Tobacco use date assessed 11/22/23 07/12/24 09:46 Patient Tobacco Use Status Never used Tobacco 07/12/24 09:46 e-Cigarette/Vaping Use Never Used 07/12/24 09:46 Thrive Assessment: Date of Thrive Assessment Date Thrive assessed 11/22/23 07/12/24 09:46 Resp Effort & Inspection: normal respiratory effort Auscultation: clear to auscultation bilaterally Cardio Jugular venous distension: no JVD Rate: regular rate Rhythm: regular rhythm Heart sounds: S1 normal heart sound present and S2 normal heart sound present Extrem General: Yes full ROM Results AMB Hemoglobin A1c AMB Hemoglobin A1c 6.5 % Last Edit by JOSE Griffith on 07/12/24 09:5 3 Results Reviewed Results Reviewed: Laboratory Last Values Hgb A1c (Clinic) 6.5 % (4.0-6.0) H 07/12/24 09:39 Assessment and Plan Assessment & Plan (1) Pain of right clavicle: Code(s): M89.8X1 - Other specified disorders of bone, shoulder Plan: X-ray ordered. (2) Diabetes: Code(s): E11.9 - Type 2 diabetes mellitus without complications Qualifiers: Diabetes mellitus type: type 2 Diabetes mellitus intermediate teacher insulin use: without skilled nursing use Diabetes mellitus complication status: without complication Qualified Code(s): E11.9 - Type 2 diabetes mellitus without complications Plan: Continue metformin. A1c goal is equal or less than 7%. (3) Mild recurrent major depression: Code(s): F33.0 - Major depressive disorder, recurrent, mild Plan: She discontinue sertraline. Has been in remission. (4) Essential hypertension: Code(s): I10 - Essential (primary) hypertension Plan: Continue lisinopril 5 mg. Blood pressure goal is equal or less than 130/80. (5) Hyperlipidemia LDL goal <70: Code(s): E78.5 - Hyperlipidemia, unspecified Plan: Continue statins. LDL goal less than 70. Orders: Orders XR clavicle RT Today M89.8X1 - Other specified disorders of bone, shoulder AMB Hemoglobin A1c Today E11.8 - Type 2 diabetes mellitus with unspecified complications Medications: New lisinopril 5 mg PO DAILY 90 tabs 3RF 90 days Discontinued lisinopril Discontinued Reason: Patient Completed Course 10 mg PO DAILY 90 days 90 tabs 3RF I10 - Essential (primary) hypertension Coding Level of Care Code Est Pt Level 4 (50760) Complex EM visit Add On G2211 Diagnoses Pain of right clavicle M89.8X1 Type 2 diabetes mellitus without complication, without long-term current use of insulin E11.9 Diabetes mellitus type: type 2 Diabetes mellitus skilled nursing insulin use: without intermediate teacher use Diabetes mellitus complication status: without complication Mild recurrent major depression F33.0 Essential hypertension I10 Hyperlipidemia LDL goal <70 E78.5 Time Spent (min) 21
== END 2024-07-12 10:17 | disposition home or self-care (01) ==
PROVIDERS: PCP Internal Medicine; Visit Provider Internal Medicine
DX: M89.8X1 Other specified disorders of bone, shoulder (principal); E11.9 Type 2 diabetes mellitus without complications; F33.0 Major depressive disorder, recurrent, mild; I10 Essential (primary) hypertension; E78.5 Hyperlipidemia, unspecified; E11.8 Type 2 diabetes mellitus with unspecified complications
CPT/HCPCS: 83036; 99214; G2211

== ENCOUNTER 2024-07-12 10:28 | Outpatient (REF) | payer OTHER, SELFPAY ==
--- NOTE | ~2024-07-12 | XR_ITS ---
EXAMINATION: XR CLAVICLE, RIGHT CLINICAL INFORMATION: Other specified disorders of bone, shoulder. COMPARISON: 06/14/2009 TECHNIQUE: Straight AP and cephalad angulated AP views of the right clavicle. FINDINGS: [id number] osteoarthritis at the acromioclavicular joint with prominent undersurface osteophytes. No fracture. There is a 4 mm focus of calcific tendinitis at the rotator cuff insertion on the right proximal humerus. No acute osseous or soft tissue findings. XR/XR clavicle RT IMPRESSION: 1. [id number] osteoarthritis at the acromioclavicular joint. 2. Small focus of calcific tendinitis at the rotator cuff insertion. Electronically signed by: Spenser Arrieta MD 07/18/2024 05:24 PM EDT
== END 2024-07-12 10:29 | disposition home or self-care (01) ==
LOC: HO.XRAY 10:28
PROVIDERS: PCP Internal Medicine; Visit Provider Internal Medicine
DX: M89.8X1 Other specified disorders of bone, shoulder (principal)
CPT/HCPCS: 73000

== ENCOUNTER 2024-07-17 09:59 | Outpatient (AMB) | payer OTHER, SELFPAY ==
--- NOTE | 2024-07-17 10:02 | A.OFFPC_ITS ---
Vital Signs 07/17/24 10:03 Height 4 ft 10 in Weight 153 lb BMI 32.0 BP 112/68 Blood Pressure Location Lt brachial Position Sitting Intake Visit Reasons: Annual Exam - see comments Client Service Administrator Required: No Accompanied by: Self / Same As Patient Allergies No Known Allergies [No Known Allergies*] Allergy (Verified 07/17/24 10:15) Medication List - Last Reconciled 07/17/24 by Karo Arenas MD acetaminophen (Tylenol Extra Strength) 500 mg PO Q6H PRN acyclovir 800 mg PO BID 7 days albuterol sulfate 90 mcg/actuation (ProAir HFA) 2 puffs inhalation Q4-6H PRN 30 days aspirin (Adult Aspirin Regimen) 81 mg PO DAILY 30 days blood pressure test kit-large (Advocate Blood Pressure Monitor kit) As directed blood sugar diagnostic (ActitoTouch Verio test strips) As directed twice a day blood sugar diagnostic (ActitoTouch Verio test strips) 1 strip miscellaneous BID 90 days blood-glucose meter (Simply [employer] Plan Verio Flex Meter) As directed cane As directed cholecalciferol (vitamin D3) 25 mcg PO DAILY 90 days fluticasone furoate 50 mcg/actuation (Arnuity Ellipta) 1 inh inhalation DAILY 30 days lancets (NextEnergy Delica Safety Lancet) As directed two times per day levothyroxine 50 mcg PO DAILY 90 days lisinopril 5 mg PO DAILY 90 days metformin 500 mg PO BID 90 days pantoprazole 40 mg PO DAILY 90 days simvastatin 40 mg PO BEDTIME 90 days vitamin B complex 1 tab PO DAILY zolpidem 10 mg PO BEDTIME PRN 30 days Tobacco use date assessed: 11/22/23 Dental Screening Dental Screen Date: 07/12/24 HPI HPI Comments History of Present Illness Details This is a 74-year-old female with mild recurrent major depression and diabetes mellitus type 2 that comes accompanied by daughter for her physical exam. Depression has improved and declines medication or counseling. A1c within goal. Last diabetic eye exam was 2023. Last DEXA scan was 2023. Last colonoscopy was 2019 showing tubular adenoma and will be refer through open access. Last mammogram was 2021 and I will order another mammogram. [facility] Medical History (Updated 07/17/24 @ 10:39 by Karo Arenas MD) Mild recurrent major depression Hypercalcemia Dysphagia Hyperlipidemia LDL goal <70 Moderate asthma Age related osteoporosis Multinodular thyroid Left leg pain Diabetes Autoimmune thyroiditis Obesity (BMI 30-39.9) GERD (gastroesophageal reflux disease) Asthma Osteoarthritis Depression Dyslipidemia Thyroid nodule Insomnia Surgical History History of laparoscopic cholecystectomy Hx of colonoscopy Hx of wisdom tooth extraction Hx of tubal ligation Hx of appendectomy Family History Father Edema Mother Diabetes CVA (cerebral vascular accident) Hypertension Social History Household Members: None Housing: Apartment Alcohol intake: never Patient Tobacco Use Status: Never used Tobacco e-Cigarette/Vaping Use: Never Used Second Hand Smoke Exposure: No Advance Directives Date on File: 08/15/20 service: No Current occupational status: disabled Cognitive needs: No Hearing needs: No Vision needs: Yes Female Reproductive History Menstrual Age of Menarche: 15 Questionnaire PHQ-9 Over the last 2 weeks, how often have you been bothered by any of the following problems? 1. Little interest or pleasure in doing things: several days 2. Feeling down, depressed, or hopeless: several days 3. Trouble falling or staying asleep, or sleeping too much: not at all 4. Feeling tired or having little energy: several days 5. Poor appetite or overeating: not at all 6. Feeling bad about yourself - or that you are a failure or have let yourself or your family down: not at all 7. Trouble concentrating on things, such as reading the newspaper or watching television: not at all 8. Moving or speaking so slowly that other people could have noticed. Or the opposite - being so fidgety or restless that you have been moving around a lot more than usual: several days 9. Thoughts that you would be better off or of hurting yourself in some way: not at all Total score: 4 Depression Screening Interpretation: Positive Depression Screening Follow-up: Existing condition and Follow-up Visit Requested Depression Screening Done: Yes 88830 - PHQ-9 Billing: Yes Source: Developed by Drs. Wilbert Garcia, Mary Vera, Dimitry Church and colleagues, with an educational amairani from [employer]. Thrive Questionnaire Date Thrive assessed: 07/17/24 I am a: Patient What is your living situation today?: I have a steady place to live Within the past 12 months, did the food you bought not last and you didn't have the money to get more?: I choose not to answer this question Within the past 12 months, did you worry whether your food would run out before you got money to buy more?: Sometimes True Do you have trouble paying for medicines?: No Do you have trouble getting transportation to medical appointments?: No Do you have trouble paying your heating and electricity bill?: No Do you have trouble taking care of your child, family member or friend?: No Do you have trouble with day-to-day activities such as bathing, preparing meals, shopping, managing finances, etc.?: Yes Are you currently unemployed and looking for a job?: Yes Are you interested in more education?: No Please select the resources that you would like help with: None Currently or been in a relationship where the following occur: No concerns reported THRIVE Score: 1 AUDIT C Alcohol Use Questionnaire (AUDIT-C) 1. How often do you have a drink containing alcohol?: Never Total Score: 0 LIZZETTE-7 AMB Questionnaire LIZZETTE-7 Date LIZZETTE - 7 assessed: 07/17/24 Feeling nervous, anxious, or on edge: 0 = Not at all Not being able to stop or control worryin = Not at all Worrying too much about different things: 0 = Not at all Trouble relaxin = Not at all Being so restless that it is hard to sit still: 1 = Several days Becoming easily annoyed or irritable: 0 = Not at all Feeling afraid as if something awful might happen: 0 = Not at all Total LIZZETTE-7 score (0-4 normal; 5-9 mild; 10-14 moderate; 15-21 severe): 1 Source: Developed by Drs. Wilbert Garcia, Mary Vera, Dimitry Church and colleagues, with an educational amairani from [employer]. LIZZETTE-7 Assessment Billing LIZZETTE-7 Assessment Tool: LIZZETTE-7 Assessment 43304 Review of Systems Const All systems reviewed & are unremarkable except as noted in HPI and below Resp Denies cough GI Denies abdominal pain, Denies change in bowel habits, Denies excessive flatus, Denies nausea and Denies vomiting Denies urinary incontinence, Denies urinary hesitancy and Denies urinary urgency Musc Denies atrophy, Denies deformity and Denies limited range of motion Physical exam (Primary Care) Vital Signs: Last Vital Signs BP 112/68 07/17/24 10:03 BMI result Body Mass Index 32.0 BMI Assessment/Plan discussion: High BMI High, discussed plan: lifestyle, weight reduction, dietary and physical activity Tobacco/Smoking Status: Tobacco use Status Tobacco use date assessed 11/22/23 07/17/24 10:07 Patient Tobacco Use Status Never used Tobacco 07/17/24 10:07 e-Cigarette/Vaping Use Never Used 07/17/24 10:07 PHQ-9: PHQ-9 Score PHQ-9: Total score 4 07/17/24 10:23 Depression Screening Interpretation: Positive Depression Screening Follow-up: Existing condition and Follow-up Visit Requested Thrive Assessment: Date of Thrive Assessment Date Thrive assessed 07/17/24 07/17/24 10:07 Currently or been in a relationship where the following occur: No concerns reported [facility] Head: Yes normal to inspection, Yes normocephalic and Yes atraumatic Ears: external ears normal Eyes General: appearance normal, both eyes and all related structures Eyelids: Yes eyelids normal Conjunctivae: conjunctivae normal Neck Neck: Yes normal visual inspection and Yes supple Resp Effort & Inspection: normal respiratory effort Auscultation: clear to auscultation bilaterally Cardio Jugular venous distension: no JVD Rate: regular rate Rhythm: regular rhythm Heart sounds: S1 normal heart sound present and S2 normal heart sound present GI Inspection: Yes normal to inspection Palpation (GI): Soft to palpation and nontender Auscultation: normal bowel sounds Skin General skin exam: no rashes or lesions noted Neuro General: no focal motor deficits Extrem General: Yes full ROM Psych Appearance: grossly normal Assessment and Plan Assessment & Plan (1) Physical exam: Code(s): Z00.00 - Encounter for general adult medical examination without abnormal findings Plan: Repeat in a year. (2) Diabetes: Code(s): E11.9 - Type 2 diabetes mellitus without complications Qualifiers: Diabetes mellitus type: type 2 Diabetes mellitus rat exterminator insulin use: without skilled nursing use Diabetes mellitus complication status: without complication Qualified Code(s): E11.9 - Type 2 diabetes mellitus without complications Plan: Continue metformin. A1c goal is equal or less than 7%. (3) Mild recurrent major depression: Code(s): F33.0 - Major depressive disorder, recurrent, mild Plan: No need for counseling or medication at the moment. Orders: Orders Microalbumin, Random (w Creat) 4 Months R80.9 - Proteinuria, unspecified Vitamin D 25-OH (D2 and D3) 4 Months E55.9 - Vitamin D deficiency, unspecified Comprehensive [place]. Panel Fast 4 Months E11.9 - Type 2 diabetes mellitus without complications Thyroid Stimulating Hormone 4 Months E04.2 - Nontoxic multinodular goiter MM tomosynthesis screening BI Today Z12.31 - Encounter for screening mammogram for malignant neoplasm of breast Lipid Panel 4 Months E78.5 - Hyperlipidemia, unspecified Referrals Open Access Screening Colonoscopy Referral Z12.12 - Encounter for screening for malignant neoplasm of rectum Coding Level of Care Code Est Pt Prev Care >65y(80519) Diagnoses Physical exam Z00.00 Type 2 diabetes mellitus without complication, without long-term current use of insulin E11.9 Diabetes mellitus type: type 2 Diabetes mellitus skilled nursing insulin use: without rat exterminator use Diabetes mellitus complication status: without complication Mild recurrent major depression F33.0 Additional Codes LIZZETTE-7 Assessment Billing - LIZZETTE-7 Assessment Tool: LIZZETTE-7 Assessment 27277 ([id number]) Time Spent (min) 31
[2024-07-17 10:03] VITALS: BP 112/68; BMI 32.0
== END 2024-07-17 10:28 | disposition home or self-care (01) ==
PROVIDERS: PCP Internal Medicine; Visit Provider Internal Medicine
DX: Z00.00 Encounter for general adult medical examination without abnormal findings (principal); E11.9 Type 2 diabetes mellitus without complications; F33.0 Major depressive disorder, recurrent, mild

== ENCOUNTER → 2024-07-17 09:59 | Outpatient (BNVA) | payer OTHER, SELFPAY | PROVIDERS: PCP Internal Medicine; Visit Provider Internal Medicine ==

== ENCOUNTER → 2024-09-06 09:15 | Outpatient (BNV) | payer OTHER, SELFPAY | PROVIDERS: PCP Internal Medicine; Visit Provider Internal Medicine | DX: Z12.31 Encounter for screening mammogram for malignant neoplasm of breast (principal) | CPT/HCPCS: 77063; 77067 ==

== ENCOUNTER 2024-09-06 09:22 | Outpatient (REF) | payer OTHER, SELFPAY ==
--- NOTE | ~2024-09-06 | MM_ITS ---
EXAMINATION: MM SCREENING DIGITAL BREAST TOMOSYNTHESIS, BILATERAL CLINICAL INFORMATION: Screening. Asymptomatic. COMPARISON: Mammography: Comparison is made with available priors TECHNIQUE: Digital breast mammography with tomosynthesis is performed in both the craniocaudal and mediolateral oblique views along with computer-aided detection (CAD). FINDINGS: There are scattered areas of fibroglandular density (ACR BI-RADS breast composition Category b). There are no significant masses, abnormal calcifications, or other abnormalities. MM/MM tomosynthesis screening BI IMPRESSION: No mammographic evidence of malignancy. ASSESSMENT: BI-RADS BI-RADS 1 - Negative RECOMMENDATION: Routine annual mammography screening. 1 year F/U This examination should not preclude the clinical evaluation of a suspicious palpable abnormality. This patient's information was entered into a reminder system with a target due date for their next mammogram. Electronically signed by: Kaitlin Calixto DO 09/15/2024 12:59 PM [facility]
== END 2024-09-06 09:23 | disposition home or self-care (01) ==
LOC: HO.MAMMO 09:22
PROVIDERS: PCP Internal Medicine; Visit Provider Internal Medicine
DX: Z12.31 Encounter for screening mammogram for malignant neoplasm of breast (principal)
CPT/HCPCS: 77063; 77067

== ENCOUNTER 2024-09-07 09:24 | Outpatient (REF) | payer OTHER, SELFPAY ==
--- NOTE | ~2024-09-07 | FL_ITS ---
EXAMINATION: XR FLUOROSCOPY UPPER GI WITH AIR CLINICAL INFORMATION: Dysphagia COMPARISON: Barium swallow 2021 TECHNIQUE: Fluoroscopic air contrast upper GI examination was performed utilizing standard techniques with thin and thick barium and effervescent granules. Numerous spot images were obtained. FINDINGS: Lateral cine images of the oropharynx and hypopharynx demonstrate normal swallow mechanism with normal epiglottic inversion and soft palate elevation. No tracheal penetration, glottic or subglottic aspiration identified. No nasopharyngeal reflux present. Hypopharyngeal structures appear normal without evidence of mass or diverticulum. There is mild cricopharyngeal achalasia present. Dual and single contrast images of the esophagus demonstrate normal caliber, contour, and mucosal pattern. No evidence of stricture, mass, or ulcerations identified. Esophageal peristalsis is mildly disorganized. A nonobstructing Schatzki's ring is present. Small to moderate sized type I hiatal hernia is present. No significant gastroesophageal reflux was seen during the course of the examination and on reflux views. Surgical clips are present in the upper quadrant. Dual contrast and single contrast images of the stomach demonstrated normal contour. There is mild diffuse rugal fold thickening. There are multiple well-circumscribed filling defects in the fundus and body the stomach that may represent hyperplastic polyps. No masses or ulcerations are seen. Contrast freely passed into the gastric antrum and duodenal bulb without delay. Single and air-contrast images of the duodenal bulb demonstrate no abnormality. The duodenal sweep has a normal appearance, course, and mucosal fold appearance. The imaged proximal jejunum has a normal fold pattern and caliber. FLUOROSCOPY TIME: 6 minutes 10 seconds Number of Spot Images: 11 Number of Cine: 16 DOSE AREA PRODUCT: 3351 uGy-m2 (microgray-meter squared) FL/FL upper GI w Ba Swallow IMPRESSION: 1. Mild cricopharyngeal achalasia. 2. Mildly disordered esophageal peristalsis. 3. Nonobstructing Schatzki's ring. 4. Small to moderate size type I hiatal hernia. 5. Multiple well-circumscribed filling defects in the fundus and body of the stomach that may present hyperplastic polyps. Mild rugal fold thickening suggesting gastritis. Recommend correlation with EGD. 6. Status post cholecystectomy. This procedure was performed by Camacho Blanco PA-C, and supervised by Dr. Melgar Electronically signed by: Spenser Melgar MD 09/08/2024 04:54 PM [facility]
== END 2024-09-07 09:25 | disposition home or self-care (01) ==
LOC: HO.XRAY 09:24
PROVIDERS: PCP Internal Medicine; Visit Provider Internal Medicine
DX: K21.9 Gastro-esophageal reflux disease without esophagitis (principal)
CPT/HCPCS: 74240

== ENCOUNTER → 2024-09-07 09:27 | Outpatient (BNV) | payer OTHER, SELFPAY | PROVIDERS: PCP Internal Medicine; Visit Provider Physician Assistant Surgical | DX: R13.10 Dysphagia, unspecified (principal) | CPT/HCPCS: 74246 ==

== ENCOUNTER 2024-11-29 09:44 | Outpatient (REF) | payer OTHER, SELFPAY ==
--- OUTSIDE RECORDS SUMMARY | 2024-11-29 11:26 | XMS_ITS ---
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 Role Phone Nhi Varela Unavailable [phone] Unavailable Unavailable Unavailable Reason for Referral Not Available Allergies, adverse reactions, alerts No known allergies History of medication use Medication Class Instructions Start Date End Date Zolpidem Tartrate 10 mg Tab TAKE 1 TABLE T ORALLY BEDTIME NEEDED FOR INSOMNIA FOR 30 DAYS 2024-04-10 No Data Available Levothyroxine Sodium 50 MCG Tab TOME 1 TABLETA POR V A ORAL TODOS LOS D 2024-04-06 No Data Available Simvastatin 40 mg Tab TOME 1 TABLETA POR V A ORAL TODOS LOS D AL ACOSTARSE 2024-03-20 No Data Available Sertraline 25 mg Tab TOME NEFTALY TABLETA PO R V A ORAL TODOS LOS D 2024-01-05 2024-10-03 Pantoprazole Sodium 40 mg Ta b delayed rel TOME 1 TABLETA POR V A ORAL TODOS LOS D 2024-05-11 No Data Available Accu-Chek Guide Test Strip TEST ONCE A DAY NEEDED No Data Available Acyclovir 800 mg Tab TOME NEFTALY TABLETA PO R V A ORAL DOS VECES AL D A X7 DAYS 2024-05-17 No Data Available VITAMIN D3 1,000 UNIT SOFTGEL TOME 1 C P SULA POR V A ORAL A DIARIO 2024-03-08 No Data Available Aspirin Low Dose 81 mg Tab delayed rel TOME NEFTALY TABLETA TODOS LOS D 2023-12-12 No Data Available Lisinopril 5 mg Tab TOME 1 TABLETA POR V A ORAL TODOS LOS D 2023-12-30 No Data Available Acetaminophen Extra Strength 500 mg Tab TOME 1 TABLETA POR V A ORAL CADA 6 HORAS CUANDO SEA NECESARIO PARA EL DOLOR OR FEVER 2024-06-27 No Data Available metFORMIN 500 mg Tab TOME 1 TABLETA POR V A ORAL DOS VECES AL D A 2024-01-03 No Data Available ACCU-CHEK GUIDE MONITOR SYSTEM DIRECTED 2024-08-07 No Data Available Tylenol 325 mg Tab 2 tabs every 8 hours as needed 2024-10-03 No Data Available Voltaren 1 % Gel 2 grams topically to affected area 4 times per day prn 2024-10-03 No Data Available Problem List Problem Status Onset Date Resolved Date Insomnia Active 2024-10-02 N/A GERD (gastroesophageal reflux disease) Active 24-10-02 N/A Major depressive disorder, recurrent, mild Active 2024-10-02 N/A Other problems related to sc dical facilities and other health care Active 2024-10-03 N/A Class 1 obesity due to exces s calories without serious comorbidity with body mass index (BMI) of 33.0 to 33.9 in adult Active 2024-10-03 N/A Essential hypertension Active 2024-10-02 N/A Hyperlipidemia associated wi th type 2 diabetes mellitus Active 2024-10-02 N/A Chronic pain of both shouldersArthritis Active N/A Encounters Encounters Type Facility Date of Service Diagnosis/Co mplaint New patient,40-59min; chronic exacerbation, 2 stable chronic or 1 acute illness add add modifier 95 for video (do not use for phone, instead use [id number]) [facility], ([place]03/2024 Type 2 diabetes mellitus wit h other specified complicationMajor depressive disorder, recurrent, mildHyperlipidemia, unspecifiedPain in right shoulderPain in left shoulderOther chronic painUnspecified osteoarthritis, unspecified siteOther problems related to medical facilities and other health careEssential (primary) hypertensionGastro-esophageal reflux disease without esophagitisObesity, class 1Other obesity due to excess caloriesBody mass index (bmi) 33.0-33.9, adult New patient,40-59min; chronic exacerbation, 2 stable chronic or 1 acute illness add add modifier 95 for video (do not use for phone, instead use [id number]) [facility] New patient,40-59min; chronic exacerbation, 2 stable chronic or 1 acute illness add add modifier 95 for video (do not use for phone, instead use [id number]) [facility]/2024 New patient,40-59min; chronic exacerbation, 2 stable chronic or 1 acute illness add add modifier 95 for video (do not use for phone, instead use [id number]) [facility]/2024 New patient,40-59min; chronic exacerbation, 2 stable chronic or 1 acute illness add add modifier 95 for video (do not use for phone, instead use [id number]) [facility]/2024 New patient,40-59min; chronic exacerbation, 2 stable chronic or 1 acute illness add add modifier 95 for video (do not use for phone, instead use [id number]) [facility]/20[place] New patient,40-59min; chronic exacerbation, 2 stable chronic or 1 acute illness add add modifier 95 for video (do not use for phone, instead use [id number]) [facility] 10[place]03/2024 Vital Signs Date of Collection Vitals 2024-10-03 07:31:59 Height - 149.86 cmWe ight - 68.49 kgBody Mass Index (BMI) - 30.5 kg/m2Pain Scale - 5.0 {score} Social History Social History Social History Observation Description Effec tive Time Current Smoking Status Never smoker 2024-11-02 11 Sex Female History of Procedures Procedures Service Procedure code Service date Servicing provider Phone# New patient,40-59min; chronic exacerbation, 2 stable chronic or 1 acute illness add add modifier 95 for video (do not use for phone, instead use [id number]) [id number] 2024-10-03 No Data Available No Data Availa ble Advance care planning discussed and documented in the medical record ? beneficiary/patient did not wish to or was unable to provide an advance care plan or name a surrogate decision-maker. (1124F) 1124F 2024-10-03 No Data Available No Data Availa ble Medication List Documented (1159F) 1159F 2024-10-03 No Data Available No Data Sasha ilable Medication Review by prescribing provider or pharmacist documented (1160F) 1160F 2024-10-03 No Data Available No Data Sasha ilable Functional Status Assessed (1170F) 1170F 2024-10-03 No Data Available No Data Avail able BMI obtained (3008F) 3008F 2024-10-03 No Data Availab le No Data Available Pain Assessment - Pain Documented on a Pain Scale (1125F) 1125F 2024-10-03 No Data Available No Data Sasha ilable Functional Status Functional Category Effective Dates Cognition Status: Oriented to Person, Pl tyrese and Time 2024-10-03 ADL: Bathing Needs Assistanc e , Dressing Independent , Eating Independent , Ambulation Independent , Transferring Independent , Toileting Needs Assistance 2024-10-03 IADL: 2024-10-03 How many falls within the last 6 months? None 2024-10-03 Near falls within the last 6 months? Non e 2024-10-03 Do you feel unsteady on your feet? No 20 24-10-03 Do you worry about falling? No 3 Social Supports - # of Inter actions with Friends/Family in a typical week: 2024-10-03 DME used with ambulation: Cane 3 Mental Status Status Date AAOX3 2024-10-03 Assessments Date of Service Assessments 2024-10-03 07:31:59 Hyperlipidemia assoc iated with type 2 diabetes mellitusShe reports she has blood work with her PCP. Unable to locate blood work from [facility] or lab portals. Unsure what is was but states she was told it was stable. She checks glucose at home. Yesterday night at 9pm, it was 136. Diabetic eye exam: she is due for one. Advised to get one 1. F/U with ophthalmology & podiatry at least annually for prevention measure. 2.Follow a diabetic diet consists of carbs from fruits, veg, whole grain, low fat milk. Lean meats and avoid high fat high salt content foods. Avoid drinks with added sugar. Encourage the low concentrate sweets diet. 3. Check blood sugars as instructed and if you are consistently running BS > than 200 call for an f/u appointment. 4. Needs at minimum annual A1c testing. Consider additional prevention measure is ASA 81 mg daily & Statin therapy per the guidelines.5. Follow up with PCP, endocrinology and CB as instructed and scheduled guidelines.Hyperlipidemia, characterized by elevated levels of lipids in the blood, can be effectively managed through a combination of lifestyle changes, dietary adjustments, and medication adherence. A heart-healthy diet rich in fruits, vegetables, whole grains, and lean proteins, along with regular physical activity, can significantly improve lipid levels. Compliance with prescribed medications is essential to help control cholesterol and triglyceride levels. Regular follow-up visits with your healthcare provider are important to monitor progress and make any necessary adjustments to your treatment planMajor depressive disorder, recurrent, mildStates she is no longer on medication but depression has been stable. Depression is a common but serious mood disorder that affects how you feel, think, and handle daily activities. It's important to understand that depression is treatable, and seeking help from a healthcare provider can lead to effective management through therapy, medication, or a combination of both. Remember, reaching out for support is a crucial first step towards recovery. Please continue to take all the medications as prescribedInsomniaRX ambien as needed. For insomnia, try to establish a regular sleep routine by going to bed and waking up at the same time every day, even on weekends. Avoid caffeine, large meals, and screen time before bed to improve your chances of falling and staying asleepEssential hypertensionDoes not have a BP machine at home. Does not know her BP. States one time it dropped to the 90s, and after eating some salt, her BP went back to 100s again. Will send BP cuff to home. Address verified. To manage hypertension, adopt a heart-healthy diet, exercise regularly, maintain a healthy weight, limit alcohol, quit smoking, and manage stress. Take your prescribed medications as directed, monitor your blood pressure at home, and follow up with your healthcare provider regularly to ensure effective managementGERD (gastroesophageal reflux disease).To manage GERD, avoid trigger foods like spicy or fatty foods, eat smaller meals, and avoid lying down immediately after eating. Avoid tomatoes/tomatoe sauce, or any citrusy food. Elevate the head of your bed and maintain a healthy weightOther problems related to medical facilities and other health careHYPERTENSION CONTINGENCY PLANLast updated: 10/03/2024Member to call for the following symptoms: BP >180/100??/ Chest pain??/ HR >100??Planned intervention: Encourage low sodium diet/ Discuss breathing exercises/ Encourage medication adherenceClass 1 obesity due to excess calories without serious comorbidity with body mass index (BMI) of 33.0 to 33.9 in adultBMI 30.50It is important to adopt a balanced diet, engage in regular physical activity, and seek support from healthcare providers to develop a personalized weight management plan. Regular monitoring and making sustainable lifestyle changes are lawrence to achieving and maintaining a healthy weightChronic pain of both shouldersArthritisshe reports she has been bilateral shoulder pain for years. Takes tylenol as needed for her pain with some minimal relief. Will give voltaren gel to help. Plan of Care Date of Service Plans 2024-10-03 07:31:59 New Voltaren 1 % Gel 2 grams topically to affected area 4 times per day prn #90 gram [id number] Review by prescribing provider or pharmacist documented (1160F)Medication List Documented (1159F)Functional Status Assessed (1170F)BMI obtained (3008F)Pain Assessment - Pain Documented (1125F)Televideo new patient,40-59min; chronic exacerbation, 2 stable chronic or 1 acute illness add modifier 95Advance care planning discussed and documented in the medical record ? beneficiary/patient did not wish to or was unable to provide an advance care plan or name a surrogate decision-maker. (1124F)Continue to see PCP. [facility] any [facility] or disease education needs that may arise.At least 50% of time spent counseling patient, discussing diagnosis, treatment plan, complicance, and coordinating follow up care. Goals Date Goal 2024-10-03 Continue taking medi cations as directed and keep all follow up appointments with established PCP and Specialist. Health Concerns Date Concern 2024-10-03 Informed verbal cons ent was obtained from this patient to communicate and provide care using virtual and other telecommunications tools. This patient has been explained the risks, if any, related to the encounter. I explained that care provided through video or audio communication cannot replace the need for physical examination or an in-person visit for some disorders or urgent problems. Visit completed by audio and video. Patient/Guardian agreed to visit via telehealth. Introductory visit with [facility] to establish care. Today, patient has chief complaint of: establishing care.Reviewed Allergies, Medications, Active Medical conditions, past medical/surgical history, Social history. 2024-10-03 Most recent hospital stay(s) or ER visit(s) and precipitating factors: Denies 2024-10-03 Open HEDIS Measure clayton franks: Reviewed 2024-10-03 Spoke with patient lena VINCENT
--- OUTSIDE RECORDS SUMMARY | 2024-11-29 11:27 | XMS_ITS | Clinical Summary ---
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 Active vit B complx/folic acid/lysine (B COMPLEX VITAMINS PO) Take by mouth daily. Active lancets lancets Three times daily before meals 03/31/2023 Active blood sugar diagnostic ([employer]Touch Verio test strips) test strip MEASURE BLOOD GLUCOSE THREE TIMES DAILY BEFORE MEALS 09/29/2023 Active acetaminophen (TYLENOL) 325 mg tablet Take 325 mg by mouth 2 times daily as needed. Active albuterol HFA (PROAIR HFA ; PROVENTIL HFA ; VENTOLIN HFA) 90 mcg/actuation inhaler Inhale 2 puffs by mouth every 4 (four) hours if needed. Active cholecalciferol (VITAMIN D-3) 50 mcg (2,000 unit) capsule Take 1 tablet.old by mouth daily. 04/29/2023 Active hydrOXYzine HCL (ATARAX) 25 mg tablet Take 2 Tablets by mouth at bedtime as needed for Anxiety. 07/26/2023 Active levothyroxine (SYNTHROID, LEVOTHROID) 50 mcg tablet Take 1 tablet (50 mcg total) by mouth 1 (one) time each day. 04/29/2023 Active lisinopriL (PRINIVIL,ZESTRIL) 10 mg tablet Take 1 tablet (10 mg total) by mouth 1 (one) time each day. 02/03/2024 Active melatonin 1 mg tablet TAKE 1 TAB BY MOUTH DAILY NEEDED (INSOMNIA) FOR UP TO 60 DAYS. 06/04/2023 Active metFORMIN (GLUCOPHAGE) 500 mg tablet Take 1 tablet (500 mg total) by mouth 1 (one) time each day. 04/29/2023 Active pantoprazole (PROTONIX) 40 mg packet Take 40 tablets by mouth daily. Active simvastatin (ZOCOR) 40 mg tablet Take 1 Tablet by mouth at bedtime. 01/19/2024 Active Active Problems Problem Noted Date Diagnosed Date Insomnia 04/29/2023 Diabetes mellitus 03/31/2023 Hypothyroidism 03/31/2023 Primary hypertension 03/31/2023 Rib pain on left side 03/31/2023 Immunizations Name Administration Dates Next Due Hepatitis A Adult (Havrix; V aqta) 19yo and older 10/08/2015 Hepatitis B (Recombivax HB-D ialysis) 18yo and older 04/08/2016,07/15/2015,03/01/2015,2011,08/19/2011,06/05/2011 Influenza trivalent, 0.5mL ( Fluad) 65yo and older 08/11/2018 Influenza trivalent, 0.5mL, preservative free (Fluarix; FluLaval; Fluzone) ages 6mo and older (Afluria) 3 years and older 10/20/2017,10/21/2016,09/07/2015,2011 Influenza trivalent, with preservative (Fluzone; Afluria) 6mo and older 10/10/2014 MMR, measles mumps and rubel la Live (Priorix; M-M-R II) 12mo and older 08/28/1999,07/29/1999 Tdap Tetanus diptheria acell ular pertussis (Boostrix; Adacel) 7yo and older 11/20/2010,07/29/1999 Surgical History Surgery Date Site/Laterality Comments APPENDECTOMY PROCEDURE: PA APPENDECTOMY HYSTERECTOMY PROCEDURE: HISTORICAL HYSTERECTOMY Medical History Medical History Date Comments Asthma DX:Asthma Diabetes mellitus type 2, co ntrolled, with complications (CMS/HCC) DX:Diabetes mellitus type 2, controlled, with complications (HCC) Glaucoma DX:Glaucoma Essential hypertension DX:Essent ial hypertension History of vitamin D deficiency 02/27/2014 DX:History of vitamin D deficiency; COMMENT: Vitamin D = 18 Enlarged uterus 03/08/2014 DX:Enlarged uter us; COMMENT: 8.3cm X 7.8cm X 7.3cm Elevated TSH 03/01/2015 DX:Elevated TSH; COMMENT: TSH = 4.11 Fibroid 04/30/2016 DX:Fibroid; COMM ENT: fundal fibroid measuring 5.0 X 4.0 X 4.9 cm History of endometrial biopsy 05/20/2016 DX :History of endometrial biopsy; COMMENT: benign Arthritis DX:Arthritis Primary hypertension 03/31/2023 DX:Primary hypertension Family History Medical History Relation Name Comments Diabetes Brother Stroke Brother Diabetes Father Diabetes Maternal Grandfather Diabetes Maternal Grandmother Stroke Maternal Grandmother Diabetes Mother Diabetes Paternal Grandfather Diabetes Paternal Grandmother Arthritis Sister Diabetes Sister Breast cancer Neg Hx Cervical cancer Neg Hx Colon cancer Neg Hx Ovarian cancer Neg Hx Relation Name Status Comments Brother Father Maternal Grandfather Maternal Grandmother Mother Paternal Grandfather Paternal Grandmother Sister Social History Tobacco Use Types Packs/Day Years Used Date Smoking Tobacco: Never Smokeless Tobacco: Never Alcohol Use Standard Drinks/Week Comments No 0 (1 standard drink = 0.6 oz pur e alcohol) Sex and Gender Information Value Date Recorded Sex Assigned at Not on file Gender Identity Not on file Sexual Orientation Not on file Obstetrics History Last Filed Vital Signs Vital Sign Reading Time Taken Comments Blood Pressure 132/86 04/29/2023 8:07 AM EDT Pulse 68 04/29/2023 8:07 AM EDT Temperature - - Respiratory Rate - - Oxygen Saturation - - Inhaled Oxygen Concentration - - Weight 71.7 kg (158 lb) 04/29/2023 8:07 AM EDT Height 147.3 cm (4' 10 ) 04/29/2023 8:07 AM EDT Body Mass Index 33.02 04/29/2023 8:07 AM EDT Plan of Treatment Upcoming Encounters Date Type Department Care Team (Late st Contact Info) Description 02/02/2025 11:30 AM EDT Appointment Radiology Department [address] [phone] Health Maintenance Due Date Last Done Comments Pneumococcal Vaccine: 65+ Years (1 of 2 - PCV) 1958 Diabetes: Annual Foot Exam 1962 Diabetes: Annual Retina Eye Exam 1962 Zoster Vaccines (1 of 2) 2002 DTaP,Tdap,and Td Vaccines (3 - Td or Tdap) 11/20/2020 11/20/2010, 07/29/1999 Colorectal Cancer Screening: Colonoscopy 12/01/2023 Depression Screening 12/01/2023 Falls Risk Assessment 12/01/2023 Social Influencers of Health Screening 12/01/2023 Diabetes: Blood Sugar Control Test (HGBA1C) 12/17/2023 04/05/2023 Diabetes: Annual Urine Albumin-Creatinine Ratio (uACR) 04/05/2024 04/05/2023 Diabetes: Annual GFR (Glomerular Filtration Rate) 04/05/2024 04/05/2023 Hypertension/CHF/CAD Annual BMP Blood Test 04/05/2024 04/05/2023 COVID-19 Vaccine ( season) 2024 03/10/2021, 02/10/2021 Influenza Vaccine (#1) 2024 8, 10/20/2017, 10/21/2016, Additional history exists Breast Cancer Screening 06/14/2025 06/14/2023 RSV Immunization Patients 60+ Years Old (1 - 1-dose 75+ series) 2027 Cholesterol Screening (Lipid Panel) 04/05/2028 04/05/2023 Osteoporosis Screening (Bone Density Screening) 06/14/2033 06/14/2023 MMR Vaccines Aged Out 08/28/1999, 07/29/1999 No lo nger eligible based on patient's age to complete this topic Hepatitis A Vaccines Aged Out 10/08/2015 No long er eligible based on patient's age to complete this topic Hepatitis B Vaccines Completed 04/08/2016, 07/15/2015, 03/01/2015, Additional history exists Hepatitis C Screening Completed 06/18/2023 HIB Vaccines Aged Out No longer eligi ble based on patient's age to complete this topic HPV Vaccines Aged Out No longer eligi ble based on patient's age to complete this topic IPV Vaccines Aged Out No longer eligi ble based on patient's age to complete this topic Meningococcal ACWY Vaccine Aged Out N o longer eligible based on patient's age to complete this topic RSV Immunization Patients Under 20 months Aged Out No longer eligible based on patient's age to complete this topic Varicella Vaccines Aged Out No longer eligible based on patient's age to complete this topic Procedures Procedure Name Priority Date/Time Associated Diagnosis Comments HEPATITIS C SCREENING Routine 06/18/2023 DXA BONE DENSITY STUDY 1+ SITS AXIAL SKEL Routine 06/14/2023 10:33 AM EDT Encounter for general adult medical examination without abnormal findings SCREENING MAMMOGRAPHY BI 2-VIEW BREAST INC CAD Routine 06/14/2023 10:11 AM EDT Encounter for general adult medical examination without abnormal findings URINE ALBUMIN CREATININE RATIO Routine 04/05/2023 ANNUAL BMP BLOOD TEST Routine 04/05/2023 HEMOGLOBIN A1C Routine 04/05/2023 LIPID PANEL Routine 04/05/2023 from Last 3 Months or Most Recently Relevant to Health Maintenance Results * Hepatitis C Screening (06/18/2023) Hepatitis C Screening abstracted Historical Provider MD AMITA Campuzano DXA BONE DENSITY STUDY 1+ SITS AXIAL SKEL (06/14/2023 10:33 AM EDT) Anatomical Region Laterality Modality Bone Densitometr y 03/31/2023 2:22 PM EDT Narrative 06/14/2023 1:03 PM EDT BONE DENSITY (DEXA) ? Lumbar Spine T-score is -1.9. ?? (SD relative to 20-29 y/o adult) Z-score is 0.3. ??(SD relative to age matched peers) This is considered osteopenia by WHO criteria. Left Hip T-score is -2.4. Z-score is -0.7. This is considered osteopenia by WHO criteria. Lateral view of the spine demonstrates vertebral heights to be maintained. IMPRESSION: This patient's considered to have osteopenia by WHO criteria. This patient has a 7.5% risk of major osteoporotic fracture and a 1.7% risk of hip fracture over the next 10 years. (World Health Organization Fracture Risk Assessment) The [facility] Department of Internal Medicine recommends using National Osteoporosis Foundation (NOF) guidelines in treatment decisions related to osteoporosis. NOF guidelines suggest considering treatment for postmenopausal women and men aged 50 or older presenting with the following: History of hip or vertebral fracture. T-score = -2.5 (DXA) at the femoral neck, total hip, or spine, after appropriate evaluation to exclude secondary causes. Low bone mass (T-score between -1.0 and -2.5 at the femoral neck or spine) AND a 10-year probability of a hip fracture = 3% OR a 10-year probability of a major osteoporosis-related fracture = 20% based on the [place]-adapted WHO algorithm Please note that all treatment decisions require clinical judgment and consideration of individual patient factors, including patient preferences, co-morbidities, previous drug use, risk factors not captured in the FRAX model (e.g., frailty, falls, vitamin D deficiency, increased bone turnover, interval significant decline in bone density) and possible under- or over-estimation of fracture risk by FRAX. Optional alternative screening schedule based on chelsey Diaz., [facility] November 19, 2011 for patients with osteopenia (based on hip BMD T-score) is as follows: * ??advanced osteopenia (T scores -2.00 to -2.49), BMD testing every year * ??moderate osteopenia (T scores -1.50 to -1.99), BMD testing every 5 years mild osteopenia or normal BMD (T scores -1.50 and higher), BMD testing every 15 years Procedure Note Kayla Baker MD - 12/06/2023 BONE DENSITY (DEXA) Lumbar Spine T-score is -1.9. (SD relative to 20-29 y/o adult) Z-score is 0.3. (SD relative to age matched peers) This is considered osteopenia by WHO criteria. Left Hip T-score is -2.4. Z-score is -0.7. This is considered osteopenia by WHO criteria. Lateral view of the spine demonstrates vertebral heights to be maintained. IMPRESSION: This patient's considered to have osteopenia by WHO criteria. This patienthas a 7.5% risk of major osteoporotic fracture and a 1.7% risk of hip fracture over the next10 years. (World Health Organization Fracture Risk Assessment) [facility] Department of Internal Medicinerecommends using National Osteoporosis Foundation (NOF) guidelines in treatment decisionsrelated to osteoporosis. NOF guidelines suggest considering treatment forpostmenopausal women and men aged 50 or older presenting with the following: History of hip or vertebral fracture. T-score = -2.5 (DXA) at the femoral neck, total hip, or spine, afterappropriate evaluation to exclude secondary causes. Low bone mass (T-score between -1.0 and -2.5 at the femoral neck or spine)AND a 10-year probability of a hip fracture = 3% OR a 10-year probability of a majorosteoporosis-related fracture = 20% based on the [place]-adapted WHO algorithm Please note that all treatment decisions require clinical judgment andconsideration of individual patient factors, including patient preferences, co- morbidities,previous drug use, risk factors not captured in the FRAX model (e.g., frailty, falls, vitaminD deficiency, increased bone turnover, interval significant decline in bone density) andpossible under- or over-estimation of fracture risk by FRAX. Optional alternative screening schedule based on rd Diaz al., NEJMJanuary 2011 for patients with osteopenia (based on hip BMD T-score) is as follows: * advanced osteopenia (T scores -2.00 to -2.49), BMD testing every year * moderate osteopenia (T scores -1.50 to -1.99), BMD testing every 5years mild osteopenia or normal BMD (T scores -1.50 and higher), BMD testingevery 15 years Bina Manuel MD IMG DXA PROCEDURES * SCREENING MAMMOGRAPHY BI 2-VIEW BREAST INC CAD (06/14/2023 10:11 AM EDT) Anatomical Region Laterality Modality Radiographic Beronica ging 03/31/2023 2:22 PM EDT Narrative 06/14/2023 3:10 PM EDT This is a summary report. The complete report is available in the patient's medical record. If you cannot access the medical record, please contact the sending organization for a detailed fax or copy. Full field digital screening tomosynthesis mammography, reviewed with CAD and compared to previous mammograms of 11/04/2020 and 11/25/2021. The breasts are composed of fatty and fibroglandular tissue. ??No suspicious mass, architectural distortion or suspicious calcifications are identified. IMPRESSION: : No mammographic evidence of malignancy. BIRADS 1-Negative; N. 5 year breast cancer risk assessment 0.8 % Lifetime breast cancer risk assessment 2.3 % Breast cancer risk category Low (<15%) Procedure Note Kayla Baker MD - 12/06/2023 This is a summary report. The complete report is available in thepatient's medical record. If you cannot access the medical record, pleasecontact the sending organization for a detailed fax or copy. Full field digital screening tomosynthesis mammography, reviewed with CADand compared to previous mammograms of 11/04/2020 and 11/25/2021. The breastsare composed of fatty and fibroglandular tissue. No suspicious mass,architectural distortion or suspicious calcifications are identified. IMPRESSION: : No mammographic evidence of malignancy. BIRADS 1-Negative; N. 5 year breast cancer risk assessment 0.8 % Lifetime breast cancer risk assessment 2.3 % Breast cancer risk category Low (<15%) Bina Manuel MD IMG XR PROCEDURES * Urine Albumin Creatinine Ratio (04/05/2023) [facility] Urine Albumin Creatinine Ratio abstracted Historical Provider MD AMITA SALCEDO E * Annual BMP Blood Test (04/05/2023) [facility] Annual BMP Blood Test abstracted Historical Provider MD AMITA SALCEDO E * (ABNORMAL) Hemoglobin A1c (04/05/2023) [facility] Hemoglobin A1C 6.9(A) 6.5 % Blood Venous blood specimen / Unknown Historical Provider LAB BLOOD ORDERAB LES * Lipid panel (04/05/2023) LDL/HDL Ratio 2 0 - 4 Triglycerides 57 0 - 150 mg/dL Cholesterol 125 0 - 200 mg/dL HDL 58 40 mg/dL LDL Cholesterol 56 0 - 100 mg/dL Blood Venous blood specimen / Unknown Historical Provider LAB BLOOD ORDERAB LES from Last 3 Months or Most Recently Relevant to Health Maintenance 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
[2024-11-29 11:55] LABS: Alanine Aminotransferase 22 U/L (0-31); Albumin Level 4.5 g/dL (3.5-5.0); Alkaline Phosphatase 75 U/L (39-117); Anion Gap 11 (12-20); Aspartate Amino Transferase 26 U/L (5-31); Bilirubin Total 0.3 mg/dL (0.0-1.0); Blood Urea Nitrogen 12 mg/dL (9-16); Calcium 10.2 mg/dL (8.4-10.2); Carbon Dioxide 29 mmol/L (22-29); Chloride 103 mmol/L (96-108); Cholesterol 138 mg/dL (<200); Estimated Glomerular Filt Rate > 60; Glucose Fasting 142 mg/dL (60-99); HDL Cholesterol 52 mg/dL (>40); LDL Cholesterol Calculated 74 mg/dL (<100); Potassium 4.6 mmol/L (3.3-5.1); Sodium 138 mmol/L (135-145); Total Protein 8.2 g/dL (6.5-8.0); Triglycerides 64 mg/dL (<150)
[2024-11-29 12:13] LABS: Vitamin D 25-OH Total 55.6 ng/mL (>30)
[2024-11-29 12:16] LABS: Microalbum/Creatinine Ratio Ur 11.6 ug/mg cr (<30)
[2024-12-03 15:54] LABS: Vitamin D 25-OH, D2 <4 ng/mL; Vitamin D 25-OH, D3 45 ng/mL; Vitamin D 25-OH, Total 45 ng/mL (30-100)
== END 2024-11-29 09:45 | disposition home or self-care (01) ==
LOC: HO.LAB 09:44
PROVIDERS: PCP Internal Medicine; Visit Provider Internal Medicine
DX: E11.9 Type 2 diabetes mellitus without complications (principal); E78.5 Hyperlipidemia, unspecified; E04.2 Nontoxic multinodular goiter; E55.9 Vitamin D deficiency, unspecified
CPT/HCPCS: 36415; 80053; 80061; 82043; 82306; 82570; 84443

== ENCOUNTER 2024-12-05 10:15 | Outpatient (AMB) | payer OTHER, SELFPAY ==
[2024-12-05 10:24] VITALS: BP 118/70; BMI 31.8
--- NOTE | 2024-12-05 10:24 | A.OFFPC_ITS ---
Vital Signs 12/05/24 10:24 Height 4 ft 10 in Weight 152 lb 1.903 oz BMI 31.8 BP 118/70 Blood Pressure Location Lt brachial Position Sitting Intake Visit Reasons: DM Intake Note: Patient here for a follow up DM Customer Sales Specialist Required: Yes Customer Sales Specialist Language: Transformer Stock Clerk Name: Karo Arenas MD Information Interpreted: non-clinical & clinical Accompanied by: Daughter Allergies No Known Allergies [No Known Allergies*] Allergy (Verified 12/05/24 10:35) Medication List - Last Reconciled 12/05/24 by Karo Arenas MD acetaminophen (Tylenol Extra Strength) 500 mg PO Q6H PRN acyclovir 800 mg PO BID 7 days albuterol sulfate 90 mcg/actuation (ProAir HFA) 2 puffs inhalation Q4-6H PRN 30 days aspirin (Adult Aspirin Regimen) 81 mg PO DAILY 30 days blood pressure test kit-large (Advocate Blood Pressure Monitor kit) As directed blood sugar diagnostic (FreeStyle Lite Strips) As directed check the BS QD blood sugar diagnostic (Accu-Chek Guide test strips) Test once a day as needed blood-glucose meter (FreeStyle Lite Meter kit) As directed blood-glucose meter (OneTouch Verio Flex Meter) As directed blood-glucose meter (Accu-Chek Guide Glucose Meter) As directed cane As directed cholecalciferol (vitamin D3) 25 mcg PO DAILY 90 days lancets (Onetouch Delica Safety Lancet) As directed two times per day levothyroxine 50 mcg PO DAILY 90 days lisinopril 5 mg PO DAILY 90 days metformin 500 mg PO BID 90 days pantoprazole 40 mg PO DAILY 90 days simvastatin 40 mg PO BEDTIME 90 days vitamin B complex 1 tab PO DAILY zolpidem 10 mg PO BEDTIME PRN 30 days Tobacco use date assessed: 12/05/24 Fall risk assessment: No Falls in past year Last assessed Fall Risk: 12/05/24 Dental Screening Dental Screen Date: 12/05/24 Did you have a dental visit in the last 12 months?: No Did you have a dental problem in the last 6 months where you did not have access to dental care?: No Was dental information given to patient?: Patient has dentist HPI HPI Comments History of Present Illness Details The patient is a 74-year-old female presenting with achalasia. The initial concerns of difficulty swallowing were linked to this condition following diagnostic testing. The patient previously underwent a procedure, likely an upper endoscopy, which resulted in a preliminary achalasia diagnosis and was directed to gastroenterology for further management. The condition appears improved, as the patient reports ameliorated swallowing. Noteworthy in her past medical history are type 2 diabetes mellitus and hyperlipidemia. Her diabetes is well managed with an A1c of 6.6. Hyperlipidemia control has been improving, with LDL levels nearing target goals. She has a history of an adenomatous colorectal polyp removed in 2019. The next colonoscopy is scheduled for 2024 as part of ongoing surveillance. The last bone density assessment in January 2024 showed osteopenia, managed by calcium with vitamin D supplementation. The patient is also hypertensive but well-controlled with current medications. There are no allergies reported, and she is on several medications, including levothyroxine, lisinopril, metformin, and simvastatin, among others. Has mild major depression and declines any type of treatment. Insomnia stable with zolpidem. TSH normal and she is on levothyroxine for a autoimmune thyroiditis. [facility] Medical History (Updated 12/05/24 @ 12:45 by Karo Arenas MD) Mild recurrent major depression Hypercalcemia Dysphagia Hyperlipidemia LDL goal <70 Moderate asthma Age related osteoporosis Multinodular thyroid Left leg pain Diabetes Autoimmune thyroiditis Obesity (BMI 30-39.9) GERD (gastroesophageal reflux disease) Asthma Osteoarthritis Depression Dyslipidemia Thyroid nodule Insomnia Surgical History History of laparoscopic cholecystectomy Hx of colonoscopy Hx of wisdom tooth extraction Hx of tubal ligation Hx of appendectomy Family History Father Edema Mother Diabetes CVA (cerebral vascular accident) Hypertension Social History Household Members: None Housing: Apartment Alcohol intake: never Patient Tobacco Use Status: Never used Tobacco e-Cigarette/Vaping Use: Never Used Second Hand Smoke Exposure: No Advance Directives Date on File: 08/15/20 service: No Current occupational status: disabled Cognitive needs: No Hearing needs: No Vision needs: Yes Female Reproductive History Menstrual Age of Menarche: 15 Questionnaire PHQ-9 Over the last 2 weeks, how often have you been bothered by any of the following problems? 1. Little interest or pleasure in doing things: several days 2. Feeling down, depressed, or hopeless: several days 3. Trouble falling or staying asleep, or sleeping too much: not at all 4. Feeling tired or having little energy: several days 5. Poor appetite or overeating: not at all 6. Feeling bad about yourself - or that you are a failure or have let yourself or your family down: not at all 7. Trouble concentrating on things, such as reading the newspaper or watching television: not at all 8. Moving or speaking so slowly that other people could have noticed. Or the opposite - being so fidgety or restless that you have been moving around a lot more than usual: several days 9. Thoughts that you would be better off or of hurting yourself in some way: not at all Total score: 4 Depression Screening Interpretation: Positive Depression Screening Follow-up: Existing condition and Follow-up Visit Requested Depression Screening Done: Yes 34973 - PHQ-9 Billing: Yes Source: Developed by Drs. Wilbert Garcia, Mary Vera, Dimitry barclay nd colleagues, with an educational amairani from [employer]. Thrive Questionnaire Date Thrive assessed: 12/05/24 I am a: Patient What is your living situation today?: I have a steady place to live Within the past 12 months, did the food you bought not last and you didn't have the money to get more?: I choose not to answer this question Within the past 12 months, did you worry whether your food would run out before you got money to buy more?: Sometimes True Do you have trouble paying for medicines?: No Do you have trouble getting transportation to medical appointments?: No Do you have trouble paying your heating and electricity bill?: No Do you have trouble taking care of your child, family member or friend?: No Do you have trouble with day-to-day activities such as bathing, preparing meals, shopping, managing finances, etc.?: Yes Are you currently unemployed and looking for a job?: Yes Are you interested in more education?: No Please select the resources that you would like help with: None Currently or been in a relationship where the following occur: No concerns reported THRIVE Score: 1 AUDIT C Alcohol Use Questionnaire (AUDIT-C) 1. How often do you have a drink containing alcohol?: Never Total Score: 0 LIZZETTE-7 AMB Questionnaire LIZZETTE-7 Date LIZZETTE - 7 assessed: 12/05/24 Feeling nervous, anxious, or on edge: 1 = Several days Not being able to stop or control worryin = Not at all Worrying too much about different things: 1 = Several days Trouble relaxin = Not at all Being so restless that it is hard to sit still: 1 = Several days Becoming easily annoyed or irritable: 0 = Not at all Feeling afraid as if something awful might happen: 0 = Not at all Total LIZZETTE-7 score (0-4 normal; 5-9 mild; 10-14 moderate; 15-21 severe): 3 Source: Developed by Drs. Wilbert Garcia, Mary Vera, Dimitry Church and colleagues, with an educational amairani from [employer]. LIZZETTE-7 Assessment Billing LIZZETTE-7 Assessment Tool: LIZZETTE-7 Assessment 90594 Review of Systems Const All systems reviewed & are unremarkable except as noted in HPI and below Card Denies chest pain at rest, Denies chest pain with activity, Denies edema, Denies irregular heart rhythm, Denies claudication, Denies dyspnea, Denies dyspnea on exertion, Denies orthopnea, Denies paroxysmal nocturnal dyspnea and Denies slow heart rate Resp Denies cough, Denies dyspnea and Denies dyspnea on exertion GI Denies abdominal pain, Denies change in bowel habits, Denies excessive flatus, Denies nausea and Denies vomiting Denies urinary incontinence, Denies urinary hesitancy and Denies urinary urgency Physical exam (Primary Care) Vital Signs: Last Vital Signs BP 118/70 12/05/24 10:24 BMI result Body Mass Index 31.8 BMI Assessment/Plan discussion: High BMI High, discussed plan: lifestyle, weight reduction, dietary and physical activity Tobacco/Smoking Status: Tobacco use Status Tobacco use date assessed 12/05/24 12/05/24 10:31 Patient Tobacco Use Status Never used Tobacco 12/05/24 10:31 e-Cigarette/Vaping Use Never Used 12/05/24 10:31 PHQ-9: PHQ-9 Score PHQ-9: Total score 4 12/05/24 12:45 Depression Screening Interpretation: Positive Depression Screening Follow-up: Existing condition and Follow-up Visit Requested Thrive Assessment: Date of Thrive Assessment Date Thrive assessed 12/05/24 12/05/24 10:31 Currently or been in a relationship where the following occur: No concerns reported Resp Effort & Inspection: normal respiratory effort Auscultation: clear to auscultation bilaterally Cardio Jugular venous distension: no JVD Rate: regular rate Rhythm: regular rhythm Heart sounds: S1 normal heart sound present and S2 normal heart sound present Extrem General: Yes full ROM Office Procedures Flu Questionnaire Does the patient have a severe egg allergy?: No Results AMB Hemoglobin A1c AMB Hemoglobin A1c 6.6 % Last Edit by JOSE Griffith on 12/05/24 10:4 0 Immunizations Fluarix Triv [id number] (PF) 45 mcg (15 mcg x 3)/0.5 mL IM syringe Performing Provider: Karo Arenas MD [place] [facility] [facility] [place] [facility] Documented (not given) by: JOSE Griffith on 12/05/24 10:58 Reason Not Given: Patient Refused Results Reviewed Results Reviewed: Laboratory Last Values Hgb A1c (Clinic) 6.6 % (4.0-6.0) H 12/05/24 10:21 Coding Level of Care Code Est Pt Level 4 (17072) Complex EM visit Add On G2211 Diagnoses Achalasia K22.0 Mild recurrent major depression F33.0 Type 2 diabetes mellitus with unspecified complications E11.8 Essential hypertension I10 Autoimmune thyroiditis E06.3 Hyperlipidemia LDL goal <70 E78.5 Osteopenia M85.80 Additional Codes LIZZETTE-7 Assessment Billing - LIZZETTE-7 Assessment Tool: LIZZETTE-7 Assessment 34043 ([id number]) PHQ-9 - 55117 - PHQ-9 Billing: Yes ([id number]) Time Spent (min) 23 Assessment & Plan Assessment & Plan (1) Achalasia: Code(s): K22.0 - Achalasia of cardia Category: Medical (2) Mild recurrent major depression: Code(s): F33.0 - Major depressive disorder, recurrent, mild Category: Medical (3) Type 2 diabetes mellitus with unspecified complications: Code(s): E11.8 - Type 2 diabetes mellitus with unspecified complications Category: Medical (4) Essential hypertension: Code(s): I10 - Essential (primary) hypertension Category: Medical (5) Autoimmune thyroiditis: Code(s): E06.3 - Autoimmune thyroiditis Category: Medical (6) Hyperlipidemia LDL goal <70: Code(s): E78.5 - Hyperlipidemia, unspecified Category: Medical (7) Osteopenia: Code(s): M85.80 - Other specified disorders of bone density and structure, unspecified site Category: Medical Plan - Continue current hypertension therapy, monitor blood pressure regularly. - Aec goal is equal or less than 7%. Blood pressure goal is equal or less than 130/80. LDL goal is less than 70. Patient was informed and verbally consented to the use of an ambient scribe for clinic note documentation during this visit. During our discussion, I emphasized the importance of ongoing management for her chronic conditions, including diabetes and hyperlipidemia. We reviewed her recent lab results, confirming diabetes is under control. A repeat referral to gastroenterology for her achalasia was stressed due to her history of swallowing difficulties, to ensure comprehensive management and follow-up. I reaffirmed the benefits of continued osteopenia management with supplements and proper diet for bone health. We discussed the necessity of her follow-up colonoscopy in 2024 given her history of adenomatous polyps. The patient is comfortable with her current antidepressant-free management strategy within her means to support her mental well-being. Refills for her prescriptions were organized, and she'll remain in regular contact for any changes in symptoms. Orders: Orders Lipid Panel 4 Months E78.5 - Hyperlipidemia, unspecified Microalbumin, Random (w Creat) 4 Months R80.9 - Proteinuria, unspecified Comprehensive [place]. Panel Fast 4 Months E11.9 - Type 2 diabetes mellitus without complications Thyroid Stimulating Hormone 4 Months E06.3 - Autoimmune thyroiditis Influenza 8212-1801 Immunization Today Z23 - Encounter for immunization AMB Hemoglobin A1c Today E11.9 - Type 2 diabetes mellitus without complications Vitamin D 25-OH Total 4 Months E55.9 - Vitamin D deficiency, unspecified Referrals Open Access Screening Colonoscopy Referral Z12.12 - Encounter for screening for malignant neoplasm of rectum Patient Instructions: - Follow up with gastroenterology for achalasia assessment and possible endoscopy. - Continue current medication regimen for blood sugar and lipid control. - Maintain calcium and vitamin D supplementation for osteopenia management. - Attend scheduled colonoscopy in 2024. - Monitor blood pressure regularly and report any significant changes. - Maintain healthy lifestyle choices including balanced diet and regular exercise. - Stay alert to any changes in swallowing or digestive discomfort and report immediately.
--- OUTSIDE RECORDS SUMMARY | 2024-12-05 10:57 | XMS_ITS | Clinical Summary ---
Author Organization [facility] it Address [address] [place] [address] Care Team Providers Care Oncology Navigator Name Role Phone Baltazar Gibbs MD Primary Care Provider Allergies No known active allergies Medications Medication Sig Dispensed Refills Start Date End Date Status aspirin 81 mg EC tablet Take 81 tablets by mouth daily. Active vit B complx/folic acid/lysine (B COMPLEX VITAMINS PO) Take by mouth daily. Active lancets lancets Three times daily before meals 03/31/2023 Active blood sugar diagnostic (Scalable Display TechnologiesTouch Verio test strips) test strip MEASURE BLOOD [...] History Surgery Date Site/Laterality Comments APPENDECTOMY PROCEDURE: [place] APPENDECTOMY HYSTERECTOMY PROCEDURE: HISTORICAL HYSTERECTOMY Medical History [...] 02/02/2025 11:30 AM EDT Appointment Radiology Department [address] [address] Health Maintenance Due Date Last Done Comments [...] (World Health Organization Fracture Risk Assessment) [facility] Department of Internal Medicine recommends using National [...] alternative screening schedule based on chelsey Diaz., [facility] November 19, 2011 for patients with osteopenia [...] (World Health Organization Fracture Risk Assessment) [facility] Department of Internal Medicinerecommends using National Osteoporosis [...] PROCEDURES * Urine Albumin Creatinine Ratio (04/05/2023) [facility] Urine Albumin Creatinine Ratio abstracted Historical Provider MD AMITA SALCEDO E * Annual BMP Blood Test (04/05/2023) [facility] Annual BMP Blood Test abstracted Historical Provider MD AMITA SALCEDO E * (ABNORMAL) Hemoglobin A1c (04/05/2023) [facility] Hemoglobin A1C 6.9(A) 6.5 % Blood Venous [...] Recently Relevant to Health Maintenance Care Teams Oncology Navigator Relationship Specialty Start Date End Date Baltazar Gibbs MD [address] [place] [id number] PCP - General 06/13/24
== END 2024-12-05 10:57 | disposition home or self-care (01) ==
PROVIDERS: PCP Internal Medicine; Visit Provider Internal Medicine
DX: K22.0 Achalasia of cardia (principal); F33.0 Major depressive disorder, recurrent, mild; E11.8 Type 2 diabetes mellitus with unspecified complications; I10 Essential (primary) hypertension; E06.3 Autoimmune thyroiditis; E78.5 Hyperlipidemia, unspecified; M85.80 Other specified disorders of bone density and structure, unspecified site; E11.9 Type 2 diabetes mellitus without complications; Z23 Encounter for immunization

== ENCOUNTER → 2024-12-05 10:15 | Outpatient (BNVA) | payer OTHER, SELFPAY | PROVIDERS: PCP Internal Medicine; Visit Provider Internal Medicine | DX: K22.0 Achalasia of cardia (principal); F33.0 Major depressive disorder, recurrent, mild; E11.8 Type 2 diabetes mellitus with unspecified complications; E06.3 Autoimmune thyroiditis; E78.5 Hyperlipidemia, unspecified; I10 Essential (primary) hypertension; M85.80 Other specified disorders of bone density and structure, unspecified site | CPT/HCPCS: 83036; 90471; 96127; 99212 ==

== ENCOUNTER 2025-02-14 09:32 | Outpatient (AMB) | payer OTHER, SELFPAY ==
--- NOTE | 2025-02-14 09:40 | A.OFFVIS_ITS ---
VS Expanded 02/14/25 09:41 02/14/25 09:56 Height 4 ft 10 in 4 ft 10 in Weight 155 lb 2.3 oz 155 lb BMI 32.4 32.4 Intake Visit Reasons: T2DM Allergies No Known Allergies [No Known Allergies*] Allergy (Verified 12/05/24 10:35) Nutrition Presentation Details: Pt presents for MNT for T2DM Pt presents with daughter during this appt Pt has questions regarding food portions/carbs food frequency sweets: 2-3x/wk fruits0-1/ fish 1-2 x/wk dairy 0-1/d vex/wk starches >20/d water: 6 bottles/d physical activity sedentary etoh/smoking -denies BS Monitoring Most Recent Diabetes Results: Microalb/Creat Ratio 11.6 ug/mg cr (<30) 11/29/24 Cholesterol 138 mg/dL (<200) 11/29/24 HDL Cholesterol 52 mg/dL (>40) 11/29/24 Triglycerides 64 mg/dL (<150) 11/29/24 Creatinine 0.68 mg/dL (0.5-1.4) 11/29/24 Blood Urea Nitrogen 12 mg/dL (9-16) 11/29/24 Sodium 138 mmol/L (135-145) 11/29/24 Potassium 4.6 mmol/L (3.3-5.1) 11/29/24 Chloride 103 mmol/L (96-108) 11/29/24 Carbon Dioxide 29 mmol/L (22-29) 11/29/24 Calcium 10.2 mg/dL (8.4-10.2) 11/29/24 AST 26 U/L (5-31) 11/29/24 ALT 22 U/L (0-31) 11/29/24 Total Protein 8.2 g/dL (6.5-8.0) H 11/29/24 Albumin 4.5 g/dL (3.5-5.0) 11/29/24 MZN-Kkwkzxw-Hc.Jeor Equation Height: 4 ft 10 in Weight: 155 lb Resting Metabolic Rate: 1107.88 Calculated Activity Level: Mild Activity Calories Needed to Maintain Weight: 1523.34 Diagnosis Nutrition problem #1: excessive energy intake As related to (etiology) #1: diagnosis As evidenced by (sign/symptom) #1: knowledge deficit of diet [facility] Medical History (Updated 12/05/24 @ 12:45 by Karo Arenas MD) Mild recurrent major depression Hypercalcemia Dysphagia Hyperlipidemia LDL goal <70 Moderate asthma Age related osteoporosis Multinodular thyroid Left leg pain Diabetes Autoimmune thyroiditis Obesity (BMI 30-39.9) GERD (gastroesophageal reflux disease) Asthma Osteoarthritis Depression Dyslipidemia Thyroid nodule Insomnia Surgical History History of laparoscopic cholecystectomy Hx of colonoscopy Hx of wisdom tooth extraction Hx of tubal ligation Hx of appendectomy Family History Father Edema Mother Diabetes CVA (cerebral vascular accident) Hypertension Social History Household Members: None Housing: Apartment Alcohol intake: never Patient Tobacco Use Status: Never used Tobacco e-Cigarette/Vaping Use: Never Used Second Hand Smoke Exposure: No Advance Directives Date on File: 08/15/20 service: No Current occupational status: disabled Cognitive needs: No Hearing needs: No Vision needs: Yes Female Reproductive History Menstrual Age of Menarche: 15 Assessment & Plan Assessment & Plan (1) Type 2 diabetes mellitus with unspecified complications: Code(s): E11.8 - Type 2 diabetes mellitus with unspecified complications Category: Medical Plan: Wt: 70 Kg ( 02/23) Est kcal needs as per MSJ: 1500 (40% carb, 30% protein/fat) Est fluid needs as per 25-30 ml/d: 2100 Est prot per day as per 1 g/kg bw: 70 Recommend fiber intake : 8-10 g per day and gradually increase to 25-28 g per day for women and 35-38 g for men or as tolerated Recommend sodium intake per day : less than 1500 mg less than 2000 mg Educated patient on: ( R = reviewed V = verbalizes understanding N/R = needs review N/A = not applicable * Food sources of carbohydrate, adequate serving sizes and its role in various health conditions: R * Differences between complex carbohydrates a simple carbohydrates, role of fiber in diet: R * Lean protein sources of foods: R * Differences between types of fats and role in diet (mono on saturated fat fatty acids, saturated fatty acids, trans fats): R V N/R * Food sources of sodium in salt and healthy modifications for heart health in kidney health: R V R/V * Vitamins and minerals: R V N/R * Healthy plate method concept: R V N/R * Physical activity: Benefits a precaution: R V N/R * Hypoglycemia protocol (rule of 15): R V N/R * Dietary prevention of Hyperglycemia: R * hydration :R Patient Instructions: follow healthy plate method See meal ideas consisting fo 30-45 carb per meals/20-30 g prot per meal and 15- 20 g carb/8-12 g prot as snack Choose fiber rich foods options see meal plan as reference Coding Level of Care Code Nutr Indiv Intake (83664) Diagnoses Type 2 diabetes mellitus with unspecified complications E11.8 Time Spent (min) 30
[2025-02-14 09:41] VITALS: BMI 32.4
[2025-02-14 09:56] VITALS: BMI 32.4
--- OUTSIDE RECORDS SUMMARY | 2025-02-14 10:36 | XMS_ITS ---
Author Name Nhi Varela NP Address [address] [place] [address] Phone [phone] Organization [facility] Care Team Providers Care Packing Machine Pilot Can Router Name Role Phone Nhi Varela Unavailable [phone] Unavailable Unavailable Unavailable Reason for Referral Not [...] Active 2024-10-02 N/A Other problems related to ks dical facilities and other health care Active [...] (do not use for phone, instead use 02169-78) [facility] Type 2 diabetes mellitus wit h [...] (do not use for phone, instead use 45785-73) [facility] New patient,40-59min; chronic exacerbation, 2 stable chronic or 1 acute illness add add modifier 95 for video (do not use for phone, instead use 49938-89) [facility] New patient,40-59min; chronic exacerbation, 2 stable chronic or 1 acute illness add add modifier 95 for video (do not use for phone, instead use 34880-41) [facility] New patient,40-59min; chronic exacerbation, 2 stable chronic or 1 acute illness add add modifier 95 for video (do not use for phone, instead use 70196-14) [facility] New patient,40-59min; chronic exacerbation, 2 stable chronic or 1 acute illness add add modifier 95 for video (do not use for phone, instead use 97659-08) [facility]/20[place] New patient,40-59min; chronic exacerbation, 2 stable chronic or 1 acute illness add add modifier 95 for video (do not use for phone, instead use 19829-51) [facility]/2024 Vital Signs Date of Collection Vitals 2024-10-03 07:31:59 Height - 149.86 cmWe ight - 68.49 kgBody Mass Index (BMI) - 30.5 kg/m2Pain Scale - 5.0 {score} Social History Social History Social History Observation Description Effec tive Time Current Smoking Status Never smoker 2025-01-30 8 Sex Female History of Procedures Procedures Service Procedure code Service date Servicing provider Phone# New patient,40-59min; chronic exacerbation, 2 stable chronic or 1 acute illness add add modifier 95 for video (do not use for phone, instead use 09876-79) 19797 2024-10-03 No Data Available No Data Availa [...] 4 times per day prn #90 gram [id number] Review by prescribing provider or pharmacist documented [...] decision-maker. (1124F)Continue to see PCP. [facility] or [facility] [...] to visit via telehealth. Introductory visit with [facility] to establish care. Today, patient has chief complaint of: establishing care.Reviewed Allergies, Medications, Active Medical conditions, past medical/surgical history, Social history. 2024-10-03 Most recent hospital stay(s) or ER visit(s) and precipitating factors: Denies 2024-10-03 Open HEDIS Measure clayton franks: Reviewed 2024-10-03 Spoke with patient lena VINCENT
== END 2025-02-14 10:13 | disposition home or self-care (01) ==
LOC: HO.ENCR 09:32
PROVIDERS: PCP Internal Medicine; Visit Provider Dietitian, Registered
DX: E11.8 Type 2 diabetes mellitus with unspecified complications (principal)

== ENCOUNTER → 2025-02-14 09:32 | Outpatient (BNVA) | payer OTHER, SELFPAY | PROVIDERS: PCP Internal Medicine; Visit Provider Dietitian, Registered | DX: E11.8 Type 2 diabetes mellitus with unspecified complications (principal); Z71.3 Dietary counseling and surveillance | CPT/HCPCS: 97802 ==

== ENCOUNTER 2025-03-28 10:04 | Outpatient (AMB) | payer OTHER, SELFPAY ==
--- NOTE | 2025-03-28 10:07 | A.OFFVIS_ITS ---
Vital Signs 03/28/25 10:08 Height 4 ft 10 in Weight 154 lb 5.177 oz BMI 32.3 BP 133/56 L Blood Pressure Location Lt brachial Position Sitting Pulse 73 Intake Visit Reasons: Achalasia cardia Intake Note: Ese presents in the office as a new patient for Achalasia of Cardia. CC: She states that she is constipated when she eats bread and green bananas. She tries to avoid that so she has a BM twice daily. Other than that she does not have any GI concerns. Income Tax Analyst Required: Yes Allergies No Known Allergies [No Known Allergies*] Allergy (Verified 12/05/24 10:35) HPI Comments Details: 74 y.o F with PMH of who is here for difficulty swallowing. Reports longstanding sx but recently have been getting worse. Has pain on swall owing feels that food goes down very slowly. Mostly with solids. Barium swallow 09/2024: 1. Mild cricopharyngeal achalasia. 2. Mildly disordered esophageal peristalsis. 3. Nonobstructing Schatzki's ring. 4. Small to moderate size type I hiatal hernia. 5. Multiple well-circumscribed filling defects in the fundus and body of the stomach that may present hyperplastic polyps. Mild rugal fold thickening suggesting gastritis. Recommend correlation with EGD. 6. Status post cholecystectomy. Colonoscopy 2019 (Dr Montiel) 10 mm sigmoid colon tubular adenoma. [facility] Medical History Mild recurrent major depression Hypercalcemia Dysphagia Hyperlipidemia LDL goal <70 Moderate asthma Age related osteoporosis Multinodular thyroid Left leg pain Diabetes Autoimmune thyroiditis Obesity (BMI 30-39.9) GERD (gastroesophageal reflux disease) Asthma Osteoarthritis Depression Dyslipidemia Thyroid nodule Insomnia Surgical History History of laparoscopic cholecystectomy Hx of colonoscopy Hx of wisdom tooth extraction Hx of tubal ligation Hx of appendectomy Family History Father Edema Mother Diabetes CVA (cerebral vascular accident) Hypertension Social History Household Members: None Housing: Apartment Alcohol intake: never Patient Tobacco Use Status: Never used Tobacco e-Cigarette/Vaping Use: Never Used Second Hand Smoke Exposure: No Advance Directives Date on File: 08/15/20 service: No Current occupational status: disabled Cognitive needs: No Hearing needs: No Vision needs: Yes Female Reproductive History Menstrual Age of Menarche: 15 Review of Systems Const All systems reviewed & are unremarkable except as noted in HPI and below Physical Exam Vital Signs: Last Vital Signs Pulse 73 03/28/25 10:08 BP 133/56 L 03/28/25 10:08 BMI result Body Mass Index 32.3 No apparent distress, appears younger than stated age Nonicteric Abdomen soft, nondistended Alert and oriented x3, normal gait Assessment & Plan Assessment & Plan (1) Dysphagia: Code(s): R13.10 - Dysphagia, unspecified Category: Medical (2) Chronic GERD: Code(s): K21.9 - Gastro-esophageal reflux disease without esophagitis Category: Medical (3) Personal history of colonic polyps: Code(s): Z86.0100 - Personal history of colon polyps, unspecified Category: Medical Plan 1. Dysphagia Likely 2/2 cricopharyngeal narrowing. Schatzki's not obstructing on barium swallow. May also have some IEM 2/2 GERD. Plan: - EGD to be booked 2. Hx of polyps Due for a repeat colo. This will be booked at [facility] same time as egd. Plan: - PEG prep reviewed - Instructions handed out in Guatemalan as well Follow up after procedures Medications: New peg 3350-electrolytes 236-22.74-6.74 -5.86 gram (Golytely) as per split prep instructions, until fecal effluent is clear 240 mL PO Q10M 4,000 mL 0RF colonoscopy Coding Level of Care Code New Pt Level 4 (97272) Diagnoses Dysphagia R13.10 Chronic GERD K21.9 Personal history of colonic polyps Z86.0100
[2025-03-28 10:08] VITALS: BP 133/56; PULSE 73; BMI 32.3
--- OUTSIDE RECORDS SUMMARY | 2025-03-28 11:03 | XMS_ITS ---
Author Name Nhi Varela NP Address [address] [place] [address] Phone [phone] Organization [facility] Care Team Providers Care Claim Inspector Name Role Phone Nhi Varela Unavailable [phone] Unavailable Unavailable Unavailable Reason for Referral Not [...] List Problem Status Onset Date Resolved Date Synopsis Insomnia Active 2024-10-02 N/A RX ambien as n eeded. For insomnia, try to establish a regular sleep routine by going to bed and waking up at the same time every day, even on weekends. Avoid caffeine, large meals, and screen time before bed to improve your chances of falling and staying asleep GERD (gastroesophageal reflu x disease) Active 2024-10-02 N/A .To manage GERD, avoid trigger foods like spicy or fatty foods, eat smaller meals, and avoid lying down immediately after eating. Avoid tomatoes/tomatoe sauce, or any citrusy food. Elevate the head of your bed and maintain a healthy weight Major depressive disorder, recurrent, mild Active 2024-10-02 N/A States she is no longer on medication but [...] continue to take all the medications as prescribed Other problems related to medical facilities and other health care Active 2024-10-03 N/A HYPERTENSION CONTINGENCY PLANLast updated: 10/03/2024Member to call for the following symptoms: BP >180/100??/ Chest pain??/ HR >100??Planned intervention: Encourage low sodium diet/ Discuss breathing exercises/ Encourage medication adherence Class 1 obesity due to exces s calories without serious comorbidity with body mass index (BMI) of 33.0 to 33.9 in adult Active 2024-10-03 N/A BMI 30.50It is i mportant to adopt a balanced diet, engage in regular physical activity, and seek support from healthcare providers to develop a personalized weight management plan. Regular monitoring and making sustainable lifestyle changes are lawrence to achieving and maintaining a healthy weight Essential hypertension Active 2024-10-02 N/A Do es not have a BP machine at home. [...] your healthcare provider regularly to ensure effective management Hyperlipidemia associated with type 2 diabetes mellitus Active 2024-10-02 N/A Dustin uri reports she has blood work with her [...] endocrinology and CB as instructed and scheduled guidelines.Hyperlipidemi a, characterized by elevated levels of lipids in [...] make any necessary adjustments to your treatment plan Chronic pain of both shouldersArthritis Active 2024-10-03 N/A she reports s he has been bilateral shoulder pain for years. Takes tylenol as needed for her pain with some minimal relief. Will give voltaren gel to help. Encounters Encounters Type Facility Date of Service Diagnosis/Co mplaint New patient,40-59min; chronic exacerbation, 2 stable chronic or 1 acute illness add add modifier 95 for video (do not use for phone, instead use [id number]) [facility], [place]2024 Type 2 diabetes mellitus wit h [...] (do not use for phone, instead use 59947-45) [facility] ([place]03/2024 New patient,40-59min; chronic exacerbation, 2 stable chronic or 1 acute illness add add modifier 95 for video (do not use for phone, instead use 65218-02) [facility]/2024 New patient,40-59min; chronic exacerbation, 2 stable chronic or 1 acute illness add add modifier 95 for video (do not use for phone, instead use 63517-76) [facility]/2024 New patient,40-59min; chronic exacerbation, 2 stable chronic or 1 acute illness add add modifier 95 for video (do not use for phone, instead use 87343-71) [facility]03/2024 New patient,40-59min; chronic exacerbation, 2 stable chronic or 1 acute illness add add modifier 95 for video (do not use for phone, instead use 51974-82) [facility]/2024 New patient,40-59min; chronic exacerbation, 2 stable chronic or 1 acute illness add add modifier 95 for video (do not use for phone, instead use 36575-25) [facility]/2024 Vital Signs Date of Collection Vitals 2024-10-03 07:31:59 Height - 149.86 cmWe ight - 68.49 kgBody Mass Index (BMI) - 30.5 kg/m2Pain Scale - 5.0 {score} Social History Social History Social History Observation Description Effec tive Time Current Smoking Status Never smoker 2025-03-02 10 Sex Female History of Procedures Procedures Service Procedure code Service date Servicing provider Phone# New patient,40-59min; chronic exacerbation, 2 stable chronic or 1 acute illness add add modifier 95 for video (do not use for phone, instead use 56637-25) 15897 2024-10-03 No Data Available No Data Availa [...] typical week: 2024-10-03 DME used with ambulation: [facility] 3 Mental Status Status Date AAOX3 2024-10-03 Assessments Date of Service Assessments 2024-10-03 07:31:59 Hyperlipidemia assmendoza iated with type 2 diabetes mellitusShe reports [...] and other health careHYPERTENSION CONTINGENCY PLANLast updated: 10/03/2024Mebernabe to call for the following symptoms: BP [...] 4 times per day prn #90 gram [id number] Review by prescribing provider or pharmacist documented [...] decision-maker. (1124F)Continue to see PCP. Follow-up with Maddi as needed for any acute or disease [...] to visit via telehealth. Introductory visit with Maddi to establish care. Today, patient has chief complaint of: establishing care.Reviewed Allergies, Medications, Active Medical conditions, past medical/surgical history, Social history. 2024-10-03 Most recent hospital stay(s) or ER visit(s) and precipitating factors: Denies 2024-10-03 Open HEDIS Measure clayton franks: Reviewed 2024-10-03 Spoke with patient lena VINCENT
== END 2025-03-28 10:55 | disposition home or self-care (01) ==
LOC: HO.HGI 10:05
PROVIDERS: PCP Internal Medicine; Visit Provider Internal Medicine
DX: R13.10 Dysphagia, unspecified (principal); K21.9 Gastro-esophageal reflux disease without esophagitis; Z86.0100 Personal history of colon polyps, unspecified
CPT/HCPCS: 99204

== ENCOUNTER → 2025-03-28 10:04 | Outpatient (BNVA) | payer OTHER, SELFPAY | PROVIDERS: PCP Internal Medicine; Visit Provider Internal Medicine | DX: R13.10 Dysphagia, unspecified (principal); K21.9 Gastro-esophageal reflux disease without esophagitis; Z86.0100 Personal history of colon polyps, unspecified | CPT/HCPCS: 99202 ==

== ENCOUNTER 2025-04-23 10:06 | Outpatient (REF) | payer OTHER, SELFPAY ==
--- OUTSIDE RECORDS SUMMARY | 2025-04-23 11:13 | XMS_ITS | Patient Health Record ---
Author Organization [facility] Address [address] [place] [address] Care Team Providers Care Swimming Pool Cleaner Name Role Phone Wilbert Sahu Erwin [phone] Reason For Referral No Information Plan Of Treatment No Information
[2025-04-23 11:45] LABS: Appearance Urine Clear; Color Urine Yellow; Glucose Urine UA Negative (Negative); Leukocyte Esterase Urine Trace (Negative); Nitrite Urine Negative (Negative); PH 6.5 (5.0-9.0); UMIC TRIGGER UACC YES; Urine Blood Negative (Negative); Urine Ketones Negative (Negative); Urine Protein Negative (Neg-Trace)
[2025-04-23 11:47] LABS: Bacteria Urine None Seen (None Seen); Hyaline Casts Urine 0-2 /LPF (0-2); RBC Urine 0-2 /HPF (0-2); Squamous Epithelial Cell Urine 0-2 /HPF (0-2); WBC Urine 0-5 /HPF (0-5)
[2025-04-23 12:15] LABS: Alanine Aminotransferase 17 U/L (0-31); Albumin Level 4.5 g/dL (3.5-5.0); Alkaline Phosphatase 74 U/L (39-117); Anion Gap 13 (12-20); Aspartate Amino Transferase 22 U/L (5-31); Bilirubin Total 0.3 mg/dL (0.0-1.0); Blood Urea Nitrogen 14 mg/dL (9-16); Calcium 9.9 mg/dL (8.4-10.2); Carbon Dioxide 25 mmol/L (22-29); Chloride 106 mmol/L (96-108); Cholesterol 143 mg/dL (<200); Estimated Glomerular Filt Rate > 60; Glucose Fasting 143 mg/dL (60-99); HDL Cholesterol 53 mg/dL (>40); LDL Cholesterol Calculated 79 mg/dL (<100); Potassium 4.2 mmol/L (3.3-5.1); Sodium 140 mmol/L (135-145); Total Protein 7.3 g/dL (6.5-8.0); Triglycerides 57 mg/dL (<150)
[2025-04-23 12:26] LABS: Thyroid Stimulating Hormone 2.44 uIU/mL (0.32-4.0); Vitamin D 25-OH Total 49.8 ng/mL (>30)
[2025-04-23 12:32] LABS: Creatinine Urine 111.34 mg/dL; Microalbum/Creatinine Ratio Ur 7.1 ug/mg cr (<30)
== END 2025-04-23 10:07 | disposition home or self-care (01) ==
LOC: HO.LAB 10:06
PROVIDERS: PCP Internal Medicine; Visit Provider Internal Medicine
DX: E78.5 Hyperlipidemia, unspecified (principal); E06.3 Autoimmune thyroiditis; E55.9 Vitamin D deficiency, unspecified; R80.9 Proteinuria, unspecified; E11.9 Type 2 diabetes mellitus without complications; R33.9 Retention of urine, unspecified
CPT/HCPCS: 36415; 80053; 80061; 81001; 82043; 82306; 82570; 84443

== ENCOUNTER 2025-05-01 10:16 | Outpatient (AMB) | payer OTHER, SELFPAY ==
--- NOTE | 2025-05-01 10:21 | A.OFFPC_ITS ---
Vital Signs 05/01/25 10:22 Height 4 ft 10 in Weight 156 lb BMI 32.6 BP 120/80 Blood Pressure Location Lt brachial Position Sitting Intake Visit Reasons: dm Intake Note: Patient here for a follow up DM Lead Nitrate Processor Required: No Accompanied by: Daughter Allergies No Known Allergies (No Known Allergies*) Allergy (Verified 05/01/25 11:05) Medication List - Last Reconciled 05/01/25 by Karo Arenas MD acetaminophen (Tylenol Extra Strength) 500 mg PO Q6H PRN albuterol sulfate 90 mcg/actuation 2 puffs inhalation Q4-6H PRN 30 days aspirin (Adult Aspirin Regimen) 81 mg PO DAILY 30 days blood pressure test kit-large (Advocate Blood Pressure Monitor kit) As directed blood sugar diagnostic (FreeStyle Lite Strips) As directed check the BS QD blood sugar diagnostic (Accu-Chek Guide test strips) Test once a day as needed blood-glucose meter (FreeStyle Lite Meter kit) As directed blood-glucose meter (Accu-Chek Guide Glucose Meter) As directed blood-glucose meter (BIG Launcheruch Verio Flex Meter) As directed cane As directed cholecalciferol (vitamin D3) 25 mcg PO DAILY 90 days fluticasone furoate 50 mcg/actuation (Arnuity Ellipta) 1 inh inhalation Q24H 30 days lancets (Medstrouch Delica Safety Lancet) As directed two times per day levothyroxine 50 mcg PO DAILY 90 days lisinopril 5 mg PO DAILY 90 days metformin 500 mg PO BID 90 days pantoprazole 40 mg PO DAILY 90 days peg 3350-electrolytes 236-22.74-6.74 -5.86 gram (Golytely) 240 mL PO Q10M simvastatin 40 mg PO BEDTIME 90 days vitamin B complex 1 tab PO DAILY zolpidem 10 mg PO BEDTIME PRN 30 days Tobacco use date assessed: 12/05/24 Fall risk assessment: No Falls in past year Last assessed Fall Risk: 05/01/25 Dental Screening Dental Screen Date: 12/05/24 HPI HPI Comments History of Present Illness Details The patient is a 74-year-old female presenting with a follow-up for her chronic conditions, including diabetes, hypertension, and hyperlipidemia. The patient has a history of diabetes mellitus, with her most recent HbA1c recorded at 6.7%, which is within the target range of less than 7%. She is currently on metformin twice daily, which she has been adhering to as part of her diabetes management plan. Hypertension is managed with lisinopril, which has been adjusted to 2.5 mg to maintain optimal blood pressure control. The patient reports good blood pressure readings with this regimen. Hyperlipidemia remains a concern as her cholesterol levels are slightly above the target, with LDL cholesterol at 79 mg/dL, while the goal is 70 mg/dL or less. She is currently on simvastatin 40 mg, and ezetimibe has been added to her regimen to help achieve the target cholesterol levels. The patient also has a history of hypothyroidism, managed with levothyroxine 50 mcg, with current thyroid function tests indicating normal levels. She reports symptoms consistent with achalasia, including difficulty swallowing and occasional regurgitation. These symptoms have been attributed to a non- obstructive KASKY ring and disordered peristalsis in the esophagus. The patient experiences joint pain, particularly in her hands, which is consistent with arthritis. This condition limits her ability to prepress proofer objects and perform certain tasks. [facility] Medical History Mild recurrent major depression Hypercalcemia Dysphagia Hyperlipidemia LDL goal <70 Moderate asthma Age related osteoporosis Multinodular thyroid Left leg pain Diabetes Autoimmune thyroiditis Obesity (BMI 30-39.9) GERD (gastroesophageal reflux disease) Asthma Osteoarthritis Depression Dyslipidemia Thyroid nodule Insomnia Surgical History History of laparoscopic cholecystectomy Hx of colonoscopy Hx of wisdom tooth extraction Hx of tubal ligation Hx of appendectomy Family History Father Edema Mother Diabetes CVA (cerebral vascular accident) Hypertension Social History Household Members: None Housing: Apartment Alcohol intake: never Patient Tobacco Use Status: Never used Tobacco e-Cigarette/Vaping Use: Never Used Second Hand Smoke Exposure: No Advance Directives Date on File: 08/15/20 service: No Current occupational status: disabled Cognitive needs: No Hearing needs: No Vision needs: Yes Female Reproductive History Menstrual Age of Menarche: 15 Questionnaire PHQ-9 Over the last 2 weeks, how often have you been bothered by any of the following problems? 1. Little interest or pleasure in doing things: nearly every day 2. Feeling down, depressed, or hopeless: several days 3. Trouble falling or staying asleep, or sleeping too much: not at all 4. Feeling tired or having little energy: nearly every day 5. Poor appetite or overeating: not at all 6. Feeling bad about yourself - or that you are a failure or have let yourself or your family down: not at all 7. Trouble concentrating on things, such as reading the newspaper or watching television: not at all 8. Moving or speaking so slowly that other people could have noticed. Or the opposite - being so fidgety or restless that you have been moving around a lot more than usual: not at all 9. Thoughts that you would be better off or of hurting yourself in some way: not at all Total score: 7 Depression Screening Interpretation: Positive Depression Screening Follow-up: Existing condition, In treatment and Follow-up Visit Requested Depression Screening Done: Yes 17154 - PHQ-9 Billing: Yes Source: Developed by Drs. Wilbert Garcia, Mary Vera, Dimitry Church and colleagues, with an educational amairani from [employer]. Thrive Questionnaire Date Thrive assessed: 12/05/24 I am a: Patient What is your living situation today?: I have a steady place to live Within the past 12 months, did the food you bought not last and you didn't have the money to get more?: Sometimes True Within the past 12 months, did you worry whether your food would run out before you got money to buy more?: Sometimes True Do you have trouble paying for medicines?: No Do you have trouble getting transportation to medical appointments?: No Do you have trouble paying your heating and electricity bill?: No Do you have trouble taking care of your child, family member or friend?: Yes Do you have trouble with day-to-day activities such as bathing, preparing meals, shopping, managing finances, etc.?: Yes Are you currently unemployed and looking for a job?: No Are you interested in more education?: No Please select the resources that you would like help with: Food Currently or been in a relationship where the following occur: No concerns reported THRIVE Score: 2 AUDIT C Alcohol Use Questionnaire (AUDIT-C) 1. How often do you have a drink containing alcohol?: Never Total Score: 0 Score Reviewed/Action Taken: No LIZZETTE-7 AMB Questionnaire LIZZETTE-7 Date LIZZETTE - 7 assessed: 12/05/24 Feeling nervous, anxious, or on edge: 1 = Several days Not being able to stop or control worryin = Several days Worrying too much about different things: 1 = Several days Trouble relaxin = Not at all Being so restless that it is hard to sit still: 0 = Not at all Becoming easily annoyed or irritable: 0 = Not at all Feeling afraid as if something awful might happen: 0 = Not at all Total LIZZETTE-7 score (0-4 normal; 5-9 mild; 10-14 moderate; 15-21 severe): 3 Source: Developed by Drs. Wilbert Garcia, Mary Vera, Dimitry Church and colleagues, with an educational amairani from [employer]. LIZZETTE-7 Assessment Billing LIZZETTE-7 Assessment Tool: LIZZETTE-7 Assessment 70619 Review of Systems Const All systems reviewed & are unremarkable except as noted in HPI and below Card Denies chest pain at rest, Denies chest pain with activity, Denies edema, Denies irregular heart rhythm, Denies claudication, Denies dyspnea, Denies dyspnea on exertion, Denies orthopnea, Denies paroxysmal nocturnal dyspnea and Denies slow heart rate Resp Denies cough, Denies dyspnea and Denies dyspnea on exertion GI Denies abdominal pain, Denies change in bowel habits, Denies excessive flatus, Denies nausea and Denies vomiting Denies urinary incontinence, Denies urinary hesitancy and Denies urinary urgency Musc Denies atrophy, Denies deformity and Denies limited range of motion Physical exam (Primary Care) Vital Signs: Last Vital Signs BP 120/80 05/01/25 10:22 BMI result Body Mass Index 32.6 Tobacco/Smoking Status: Tobacco use Status Tobacco use date assessed 12/05/24 05/01/25 10:28 Patient Tobacco Use Status Never used Tobacco 05/01/25 10:28 e-Cigarette/Vaping Use Never Used 05/01/25 10:28 PHQ-9: PHQ-9 Score PHQ-9: Total score 7 05/01/25 11:09 Depression Screening Interpretation: Positive Depression Screening Follow-up: Existing condition, In treatment and Follow-up Visit Requested Thrive Assessment: Date of Thrive Assessment Date Thrive assessed 12/05/24 05/01/25 10:28 Currently or been in a relationship where the following occur: No concerns reported Resp Effort & Inspection: normal respiratory effort Auscultation: clear to auscultation bilaterally Cardio Jugular venous distension: no JVD Rate: regular rate Rhythm: regular rhythm Heart sounds: S1 normal heart sound present and S2 normal heart sound present Extrem General: Yes full ROM Results AMB Hemoglobin A1c AMB Hemoglobin A1c 6.7 % Last Edit by JOSE Griffith on 05/01/25 10:3 3 Results Reviewed Results Reviewed: Laboratory Last Values Hgb A1c (Clinic) 6.7 % (4.0-6.0) H 05/01/25 10:21 Coding Level of Care Code Est Pt Level 4 (38443) Complex EM visit Add On G2211 Diagnoses Mild recurrent major depression F33.0 Essential hypertension I10 Hyperlipidemia LDL goal <70 E78.5 Type 2 diabetes mellitus with unspecified complications E11.8 Autoimmune thyroiditis E06.3 Achalasia K22.0 Chronic GERD K21.9 Additional Codes LIZZETTE-7 Assessment Billing - LIZZETTE-7 Assessment Tool: LIZZETTE-7 Assessment 93393 ([id number]) PHQ-9 - 08404 - PHQ-9 Billing: Yes ([id number]) Time Spent (min) 23 Assessment & Plan Assessment & Plan (1) Mild recurrent major depression: Code(s): F33.0 - Major depressive disorder, recurrent, mild Category: Medical (2) Essential hypertension: Code(s): I10 - Essential (primary) hypertension Category: Medical (3) Hyperlipidemia LDL goal <70: Code(s): E78.5 - Hyperlipidemia, unspecified Category: Medical (4) Type 2 diabetes mellitus with unspecified complications: Code(s): E11.8 - Type 2 diabetes mellitus with unspecified complications Category: Medical (5) Autoimmune thyroiditis: Code(s): E06.3 - Autoimmune thyroiditis Category: Medical (6) Achalasia: Code(s): K22.0 - Achalasia of cardia Category: Medical (7) Chronic GERD: Code(s): K21.9 - Gastro-esophageal reflux disease without esophagitis Category: Medical Plan The management plan for the patient's diabetes includes continuing metformin twice daily, as her HbA1c is within the target range. For hypertension, the patient will continue with lisinopril at 2.5 mg, as her blood pressure readings are satisfactory. To address hyperlipidemia, ezetimibe has been added to her regimen alongside simvastatin 40 mg to help achieve the target LDL cholesterol levels. The patient is advised to monitor for any adverse effects from the new medication. The patient's hypothyroidism will continue to be managed with levothyroxine 50 mcg, as her thyroid function tests are normal. For achalasia, the patient is advised to be cautious with swallowing and to avoid foods that may exacerbate her symptoms. She should report any worsening of symptoms to her healthcare provider. Arthritis management includes advising the patient on pain management strategies and exercises to maintain joint function. Patient was informed and verbally consented to the use of an ambient scribe for clinic note documentation during this visit. Orders: Orders AMB Hemoglobin A1c Today E11.8 - Type 2 diabetes mellitus with unspecified complications Vitamin D 25-OH Total 4 Months E55.9 - Vitamin D deficiency, unspecified Lipid Panel 4 Months E78.5 - Hyperlipidemia, unspecified Microalbumin, Random (w Creat) 4 Months R80.9 - Proteinuria, unspecified Comprehensive [place]. Panel Fast 4 Months I10 - Essential (primary) hypertension Thyroid Stimulating Hormone 4 Months E06.3 - Autoimmune thyroiditis Medications: New ezetimibe 10 mg PO DAILY 90 tabs 1RF 90 days lisinopril 2.5 mg PO DAILY 90 tabs 1RF 90 days Refilled acetaminophen (Tylenol Extra Strength) 500 mg PO Q6H PRN 30 tabs 0RF fever or pain Discontinued lisinopril Discontinued Reason: Patient Completed Course 5 mg PO DAILY 90 days 90 tabs 3RF blood-glucose meter (FreeStyle Lite Meter kit) Discontinued Reason: Ancillary Entered New Order As directed 1 ea 0RF E11.65 - Type 2 diabetes mellitus with hyperglycemia blood sugar diagnostic (FreeStyle Lite Strips) Discontinued Reason: Ancillary Entered New Order As directed check the BS QD 100 ea 3RF E11.65 - Type 2 diabetes mellitus with hyperglycemia blood-glucose meter (Accu-Chek Guide Glucose Meter) Discontinued Reason: Ancillary Entered New Order As directed 1 ea 0RF E11.8 - Type 2 diabetes mellitus with unspecified complications blood sugar diagnostic (Accu-Chek Guide test strips) Discontinued Reason: Ancillary Entered New Order Test once a day as needed 50 ea 1RF E11.8 - Type 2 diabetes mellitus with unspecified complications
[2025-05-01 10:22] VITALS: BP 120/80; BMI 32.6
--- OUTSIDE RECORDS SUMMARY | 2025-05-01 11:22 | XMS_ITS ---
Author Name Nhi Varela NP Address [address] [place] [address] Phone [phone] Organization [facility] Care Team Providers Care Exhibition Carver Name Role Phone Nhi Varela Unavailable [phone] Unavailable Unavailable Unavailable Reason for Referral Not [...] per day prn 2024-10-03 No Data Available Sertraline 25 mg Tab TOME 1 TABLETA POR V A ORAL TODOS LOS D 2024-11-01 No Data Available Arnuity Ellipta 50 MCG/ACT Aerosol Powder Breath Activated TOME NEFTALY INHALACI N POR V A ORAL TODOS LOS D 2024-12-28 No Data Available GaviLyte-G 236 GM Solution PLEASE SEE AT TACHED FOR DETAILED DIRECTIONS 2025-03-28 No Data Available Albuterol Sulfate HFA 108 (9 0 Base) MCG/ACT Aerosol Solution Inhalation 1-2 puffs every 4-6 hrs, as needed for coughing or SOA 2025-04-04 No Data Available Problem List Problem Status [...] Active 2024-10-03 N/A HYPERTENSION CONTINGENCY PLANLast updated: 10/03/2024 to call for the following symptoms: BP >180/100 / Chest pain / HR >100 Planned intervention: Encourage low sodium diet/ Discuss breathing [...] relief. Will give voltaren gel to help. Asthma, severe persistent Active 2025-04-04 N/A Arnuity + Albuterol HFA prn 04/04/25Member called into acute requesting medications changesReports her Arnuity was not helping and she needed an Rx for Flovent. -c/o wheezing x 1 day. Member has already reached out to her PCP, they have sent in an Rx for Albuterol HFA -advised to call CB 24/05 if coughing continues, chest congestion occurs, or wheezing does not resolve. Encounters Encounters Type Facility Date of Service Diagnosis/Co mplaint New patient,40-59min; chronic exacerbation, 2 stable chronic or 1 acute illness add add modifier 95 for video (do not use for phone, instead use [id number]) [facility]2024 Type 2 diabetes mellitus wit h [...] (do not use for phone, instead use 10741-99) [facility] New patient,40-59min; chronic exacerbation, 2 stable chronic or 1 acute illness add add modifier 95 for video (do not use for phone, instead use 08516-42) [facility] 10[place]03/2024 New patient,40-59min; chronic exacerbation, 2 stable chronic or 1 acute illness add add modifier 95 for video (do not use for phone, instead use 27445-22) [facility] 10[place]03/2024 New patient,40-59min; chronic exacerbation, 2 stable chronic or 1 acute illness add add modifier 95 for video (do not use for phone, instead use 57337-55) [facility] [place] 10/03/2024 New patient,40-59min; chronic exacerbation, 2 stable chronic or 1 acute illness add add modifier 95 for video (do not use for phone, instead use 64603-84) [facility] 10/03/2024 New patient,40-59min; chronic exacerbation, 2 stable chronic or 1 acute illness add add modifier 95 for video (do not use for phone, instead use 95201-87) [facility] [place] 10[place]03/2024 Estab. patient 10-29min; 1 minor problem; add add modifier 95 for video, modifier 93 for phone [facility] 04/04/2025 Severe persistent asthma, uncomplicated Estab. patient 10-29min; 1 minor problem; add add modifier 95 for video, modifier [address] [facility] [place] 04/04/2025 Vital Signs Date of Collection Vitals 2024-10-03 07:31:59 Height - 149.86 cmWe ight - 68.49 kgBody Mass Index (BMI) - 30.5 kg/m2Pain Scale - 5.0 {score} Social History Social History Social History Observation Description Effec tive Time Current Smoking Status Never smoker 1 Sex Female History of Procedures Procedures Service Procedure code Service date Servicing provider Phone# New patient,40-59min; chronic exacerbation, 2 stable chronic or 1 acute illness add add modifier 95 for video (do not use for phone, instead use 94863-13) [id number] 2024-10-03 No Data Available No Data Availa ble Advance care planning discussed and documented in the medical record beneficiary/patient did not wish to or was [...] No Data Available No Data Sasha ilable Estab. patient 10-29min; 1 minor problem; add add modifier 95 for video, modifier 93 for phone [id number] 2025-04-04 No Data Available No Data Availa ble Medication List Documented (1159F) 1159F 2025-04-04 No Data Available No Data Sasha ilable [...] you feel unsteady on your feet? No 24-10-03 Do you worry about falling? No [...] to call for the following symptoms: BP >180/100 / Chest pain / HR >100 Planned intervention: Encourage low sodium diet/ Discuss breathing [...] relief. Will give voltaren gel to help. 2025-04-04 09:46:30 Asthma, severe persi stent Plan of Care Date of Service Plans 2024-10-03 07:31:59 New Voltaren 1 % Gel 2 grams topically to affected area 4 times per day prn #90 gram [id number] Review by prescribing provider or pharmacist documented (1160F)Medication List Documented (1159F)Functional Status Assessed (1170F)BMI obtained (3008F)Pain Assessment - Pain Documented (1125F)Televideo new patient,40-59min; chronic exacerbation, 2 stable chronic or 1 acute illness add modifier 95Advance care planning discussed and documented in the medical record beneficiary/patient did not wish to or was unable to provide an advance care plan or name a surrogate decision-maker. (1124F)Continue to see PCP. Follow-up with [facility] as needed for any acute or disease education needs that may arise.At least 50% of time spent counseling patient, discussing diagnosis, treatment plan, complicance, and coordinating follow up care. 2025-04-04 09:46:30 Estab. patient 10-29 min; 1 minor problem; add add modifier 95 for video, modifier 93 for phoneContinue to see PCP. [facility] or disease [facility] needs that may arise 24/05.Arnuity + Albuterol HFA prn 04/04/25Member called into acute requesting medications changesReports her Arnuity was not helping and she needed an Rx for Flovent. -c/o wheezing x 1 day. Member has already reached out to her PCP, they have sent in an Rx for Albuterol HFA -advised to call CB 24/05 if coughing continues, chest congestion occurs, or wheezing does not resolve. Goals Date Goal 2024-10-03 Continue taking medi cations as directed and keep all follow up appointments with established PCP and Specialist. Health Concerns Date Concern 2025-04-04 Visit completed via audio by telephone. Patient/Guardian agreed to visit via telehealth.Time spent in visit: 2025-04-04 Most recent hospital stay(s) or ER visit(s) and precipitating factors: none in the past 2025-04-04 [facility] during [facility] 2025-04-04 spoke to daughter Pratima dillard, CHAPARRITA can hear member in the back. She is feeling better after using albuterol
--- OUTSIDE RECORDS SUMMARY | 2025-05-01 11:22 | XMS_ITS | Patient Health Record ---
Author Organization [facility] Address [address] [place] [address] Care Team Providers Care [facility] Winder Name Role Phone Wilbert Sahu Erwin [phone] Reason For Referral No Information Plan Of Treatment No Information
== END 2025-05-01 11:20 | disposition home or self-care (01) ==
LOC: HO.HMCH 10:17
PROVIDERS: PCP Internal Medicine; Visit Provider Internal Medicine
DX: F33.0 Major depressive disorder, recurrent, mild (principal); I10 Essential (primary) hypertension; E78.5 Hyperlipidemia, unspecified; E11.8 Type 2 diabetes mellitus with unspecified complications; E06.3 Autoimmune thyroiditis; K22.0 Achalasia of cardia; K21.9 Gastro-esophageal reflux disease without esophagitis

== ENCOUNTER → 2025-05-01 10:16 | Outpatient (BNVA) | payer OTHER, SELFPAY | PROVIDERS: PCP Internal Medicine; Visit Provider Internal Medicine | DX: E11.8 Type 2 diabetes mellitus with unspecified complications (principal); E06.3 Autoimmune thyroiditis; K22.0 Achalasia of cardia; K21.9 Gastro-esophageal reflux disease without esophagitis; E78.5 Hyperlipidemia, unspecified; I10 Essential (primary) hypertension; F33.0 Major depressive disorder, recurrent, mild | CPT/HCPCS: 83036; 96127; 99212 ==

== ENCOUNTER 2025-07-17 07:28 | Day surgery (SDC) | payer OTHER, SELFPAY ==
--- OUTSIDE RECORDS SUMMARY | 2025-07-11 16:54 | XMS_ITS ---
Author Name Nhi Varela NP Address [address] [place] [address] Phone [phone] [facility] Care Team Providers Care Surveillance Inspector Name Role Phone Nhi Varela Unavailable [phone] VINCENT JOHANA SANTORO Unavailable [phone] Unavailable Unavailable Unavailable Reason for Referral Not [...] per day prn 2024-10-03 No Data Available Arnuity Ellipta 50 MCG/ACT Aerosol Powder Breath Activated TOME NEFTALY INHALACI N POR V A ORAL TODOS LOS D 2024-12-28 No Data Available Albuterol Sulfate HFA 108 (9 0 Base) MCG/ACT Aerosol Solution Inhalation 1-2 puffs every 4-6 hrs, as needed for coughing or SOA 2025-04-04 No Data Available [employer] Ultra 2 w/Device Kit DIRECTED 2025-04-25 No Data Available Ezetimibe 10 mg Tab TOME 1 TABLETA POR V A ORAL TODOS LOS D 2025-05-01 No Data Available Accu-Chek Softclix Lancets Miscellaneous No Data Available 2025-06-11 No Data Available Aspirin EC 81 mg Tab delayed rel take 1 tablet by mouth daily 2025-06-26 No Data Available Problem List Problem Status Onset Date Resolved Date Synopsis Insomnia Active 2024-10-02 N/A StableRX: list edFor insomnia, try to establish a regular sleep routine by going to bed and waking up at the same time every day, even on weekends. Avoid caffeine, large meals, and screen time before bed to improve your chances of falling and staying asleep GERD (gastroesophageal reflux disease) Active 2024-10-02 N/A StableRX: listed To manage GERD, avoid trigger foods like spicy or fatty foods, eat smaller meals, and avoid lying down immediately after eating. Avoid tomatoes/tomatoe sauce, or any citrusy food. Elevate the head of your bed and maintain a healthy weight Major depressive disorder, recurrent, mild Active 2024-10-02 N/A StableRX: listed Denies SI/HIMonitor for worsening depression, coping mechanisms, and conitnue with PCPP.Depression is a common but serious mood disorder [...] and other health care Active 2024-10-03 N/A HYPERTE NSION CONTINGENCY PLANLast updated: 05/21/2025 Member to call for the following symptoms: BP >180/100 / Chest pain / HR >100 Planned intervention: Encourage low sodium diet/ Discuss breathing exercises/ Encourage medication adherence Class 1 obesity due to excess calories without serious comorbidity with body mass index (BMI) of 33.0 to 33.9 in adult Inactive 2024-10-03 N/A StableRX: listedBMI 30.50It is important to adopt a balanced diet, engage in regular physical activity, and seek support from healthcare providers to develop a personalized weight management plan. Regular monitoring and making sustainable lifestyle changes are lawrence to achieving and maintaining a healthy weight Essential hypertension Active 2024-10-02 N/A St ableRX: listedEncouraged heart health/low sodium diet Educate patient on symptoms of hypertension including blurred vision, headache, dizziness Encouraged daily blood pressure checks and tracking. Instructed patient to notify CB or PCP if blood pressure >160/90 or <90/60.Previous: Does not have a BP machine at home. [...] type 2 diabetes mellitus Active 2024-10-02 N/A StableRX: list edBG per patient report: < 150mg/dL a1c: < 7% per CG report. Educated on the importance of daily FSBS checks. Advised to report symptoms of hyperglycemia to CB or PCP. Advised on diabetic diet including avoiding foods with high sugar content, high carbohydrates or starchy foods like rice, potatoes. Advised to eat smaller portions with healthy snacks. Check feet and skin daily for wounds or irritation. Wear well fitting-closed toed shoesPrevious:She reports she has blood work with her [...] pain of both shouldersArthritis Active 2024-10-03 N/A StableRX: luana Jensen exercises, heat therapy, and conitnue with PCP.Mariluz WhiteheadaminophenShower chair ordered. Asthma, severe persistent Active 2025-04-04 N/A StableRX: listed Monitor for acute respiratory s/sx (eg. SOB, wheezing) and continue with PCP.Previous: 04/04/25Mebernabe called into acute requesting medications changesReports her Arnuity was not helping and she needed an Rx for Flovent. -c/o wheezing x 1 day. Member has already reached out to her PCP, they have sent in an Rx for Albuterol HFA -advised to call CB 24/05 if coughing continues, chest congestion occurs, or wheezing does not resolve. Memory impairment Active 2025-05-21 N/A StableF all risk precautions, monitor for acute changes in mental status and continue with PCP. Senile purpura Active 2025-05-21 N/A StableSkin assessment routinely, monitor for skin changes, skin protection, and continue with PCP. Encounters Encounters Type Facility Date of Service Diagnosis/Co mplaint New patient,40-59min; chronic exacerbation, 2 stable chronic or 1 acute illness add add modifier 95 for video (do not use for phone, instead use [id number]) [facility], ([place]) 10[place]03/2024 Type 2 diabetes mellitus wit h [...] (do not use for phone, instead use 55512-73) [facility], ([place]) [place] New patient,40-59min; chronic exacerbation, 2 stable chronic or 1 acute illness add add modifier 95 for video (do not use for phone, instead use [id number]) [facility] New patient,40-59min; chronic exacerbation, 2 stable chronic or 1 acute illness add add modifier 95 for video (do not use for phone, instead use [id number]) [facility] New patient,40-59min; chronic exacerbation, 2 stable chronic or 1 acute illness add add modifier 95 for video (do not use for phone, instead use [id number]) [facility] ([place] New patient,40-59min; chronic exacerbation, 2 stable chronic or 1 acute illness add add modifier 95 for video (do not use for phone, instead use 20831-17) [facility], ([place]) 10/03/2024 New patient,40-59min; chronic exacerbation, 2 stable chronic or 1 acute illness add add modifier 95 for video (do not use for phone, instead use 84524-19) [facility] Estab. patient 10-29min; 1 minor problem; add add modifier 95 for video, modifier 93 for [facility], ([place]) 04[place]04/2025 Severe persistent asthma, uncomplicated Estab. patient 10-29min; 1 minor problem; add add modifier 95 for video, modifier [address] [facility] Estab. patient 10-29min; 1 minor problem; add add modifier 95 for video, modifier 93 for [facility] 05[place]/2025 Type 2 diabetes mellitus wit h other specified complicationHyperlipidemia, unspecifiedOther problems related to medical facilities and other health careSevere persistent asthma, uncomplicatedOther amnesiaMajor depressive disorder, recurrent, mildInsomnia, unspecifiedEssential (primary) hypertensionGastro-esophageal reflux disease without esophagitisUnspecified osteoarthritis, unspecified sitePain in right shoulderPain in left shoulderOther chronic painOther nonthrombocytopenic purpura Estab. patient 10-29min; 1 minor problem; add add modifier 95 for video, modifier 93 for [facility]20[place] Estab. patient 10-29min; 1 minor problem; add add modifier 95 for video, modifier 93 for [facility]20[place] Estab. patient 10-29min; 1 minor problem; add add modifier 95 for video, modifier 93 for [facility]20[place] Estab. patient 10-29min; 1 minor problem; add add modifier 95 for video, modifier 93 for [facility]20[place] Estab. patient 10-29min; 1 minor problem; add add modifier 95 for video, modifier 93 for [facility] 05[place]/20[place] Estab. patient 10-29min; 1 minor problem; add add modifier 95 for video, modifier [address] [facility] Estab. patient 10-29min; 1 minor problem; add add modifier 95 for video, modifier [address] [facility] Estab. patient 10-29min; 1 minor problem; add add modifier 95 for video, modifier [address] [facility] Estab. patient 10-29min; 1 minor problem; add add modifier 95 for video, modifier [address] [facility]/20[place] Estab. patient 10-29min; 1 minor problem; add add modifier 95 for video, modifier [address] [facility]20[place] Pain in right shoulderPain i n left shoulderOther chronic painUnspecified osteoarthritis, unspecified siteBody mass index (bmi) 31.0-31.9, adult Vital Signs Date of Collection Vitals 2024-10-03 07:31:59 Height - 149.86 cmWe ight - 68.49 kgBody Mass Index (BMI) - 30.5 kg/m2Pain Scale - 5.0 {score} 2025-05-21 08:07:30 Height - 147.32 cmWe ight - 68.95 kgBody Mass Index (BMI) - 31.77 kg/m2BP Diastolic - 70.0 mm[Hg]BP Systolic - 116.0 mm[Hg] 2025-06-26 06:08:10 Weight - 68.95 kgBod y Mass Index (BMI) - 31.77 kg/m2 Social History Social History Social History Observation Description Effec tive Time Current Smoking Status Never smoker 2025-07-02 0 Sex Female History of Procedures Procedures Service Procedure code Service date Servicing provider Phone# New patient,40-59min; chronic exacerbation, 2 stable chronic or 1 acute illness add add modifier 95 for video (do not use for phone, instead use [id number]) 10585 2024-10-03 No Data Available No Data Availa ble Advance care planning discussed and documented in the medical record beneficiary/patient did not wish to or was unable to provide an advance care plan or name a surrogate decision-maker. (1124F) 1124F 2024-10-03 No Data Available No Data Availa ble Medication List Documented (1159F) 1159F 2024-10-03 No Data Available No Data Sahsa ilable Medication Review by prescribing provider or [...] 95 for video, modifier 93 for phone [id number] 2025-04-04 No Data Available No Data Availa ble Medication List Documented (1159F) 1159F 2025-04-04 No Data Available No Data Sasha ilable Estab. patient 10-29min; 1 minor problem; add add modifier 95 for video, modifier 93 for phone [id number] 2025-05-21 No Data Available No Data Availa ble Medication List Documented (1159F) 1159F 2025-05-21 No Data Available No Data Sasha ilable Medication Review by prescribing provider or pharmacist documented (1160F) 1160F 2025-05-21 No Data Available No Data Sasha ilable Functional Status Assessed (1170F) 1170F 2025-05-21 No Data Available No Data Avail able Advance Care Directive Advance care planning discussion documented in the medical record (1158F) 1158F 2025-05-21 No Data Available No Data Availa ble Advance care planning discussed and documented advance care plan or surrogate decision-maker was documented in the medical record. (1123F) 1123F 2025-05-21 No Data Available No Data Availa ble BMI obtained (3008F) 3008F 2025-05-21 No Data Availab le No Data Available Pain Assessment - Pain Documented on a Pain Scale (1125F) 1125F 2025-05-21 No Data Available No Data Sasha ilable SBP < 130 (3074F) 3074F 2025-05-21 No Data Available No Data Available DBP <80 (3078F) 3078F 2025-05-21 No Data Available No Data Available Estab. patient 10-29min; 1 minor problem; add add modifier 95 for video, modifier 93 for phone 14241 2025-06-26 No Data Available No Data Availa ble Functional Status Functional Category Effective Dates Cognition Status: Oriented to Person, Pl tyrese and Time 2024-10-03 ADL: Bathing Needs Assistanc e , Dressing Independent , Eating Independent , Ambulation Independent , Transferring Independent , Toileting Needs Assistance 2024-10-03 IADL: needs assistance 2025-05-21 How many falls within the last 6 months? None 2024-10-03 Near falls within the last 6 months? Non e 2024-10-03 Do you feel unsteady on your feet? No 20 24-10-03 Do you worry about falling? No 3 Social Supports - # of Inter actions with Friends/Family in a typical week: daily. 2025-05-21 DME used with ambulation: Cane 3 Mental Status Status Date AOX3 2025-05-21 Assessments Date of Service Assessments 2024-10-03 07:31:59 Hyperlipidemia assoc iated with type 2 diabetes mellitusShuri reports she has blood work with her [...] help. 2025-04-04 09:46:30 Asthma, severe persi stent 2025-05-21 08:07:30 Other problems relat ed to medical facilities and other health careHyperlipidemia associated with type 2 diabetes mellitusMajor depressive disorder, recurrent, mildInsomniaEssential hypertensionGERD (gastroesophageal reflux disease)Chronic pain of both shouldersArthritisAsthma, severe persistentMemory impairmentSenile purpura 2025-06-26 06:08:10 Chronic pain of both shouldersArthritis Plan of Care Date of Service Plans 2024-10-03 07:31:59 New Voltaren 1 % Gel 2 grams topically to affected area 4 times per day prn #90 gram [id number] Review by prescribing provider or pharmacist documented [...] for phoneContinue to see PCP. Follow-up with Maddi as [...] congestion occurs, or wheezing does not resolve. 2025-05-21 08:07:30 Medication Review by prescribing provider or pharmacist documented (1160F)Medication List Documented (1159F)Functional Status Assessed (1170F)Advance Care Directive Advance care planning discussion documented in the medical record (1158F)SBP < 130 (3074F)DBP <80 (3078F)Advance care planning discussed and documented advance care plan or surrogate decision-maker was documented in the medical record. (1123F)Pain Assessment - Pain Documented on a Pain Scale (1125F)Estab. patient 20-29min; 1 stable chronic or 2 minor; add add modifier 95 for video, modifier 93 for phoneBMI obtained (3008F)Continue to see PCP. Follow-up with [facility] as needed for any acute or disease education needs that may arise.HYPERTENSION CONTINGENCY PLANLast updated: 05/21/2025 Member to call for the following symptoms: BP >180/100 / Chest pain / HR >100 Planned intervention: Encourage low sodium diet/ Discuss breathing exercises/ Encourage medication adherenceStableRX: listedBG per patient report: < 150mg/dL a1c: < 7% per CG report. Educated on the importance of daily FSBS checks. Advised to report symptoms of hyperglycemia to CB or PCP. Advised on diabetic diet including avoiding foods with high sugar content, high carbohydrates or starchy foods like rice, potatoes. Advised to eat smaller portions with healthy snacks. Check feet and skin daily for wounds or irritation. Wear well fitting-closed toed shoesStableRX: listedDenies SI/HIMonitor for worsening depression, coping mechanisms, and conitnue with PCPP.StableRX: listedFor insomnia, try to establish a regular sleep routine by going to bed and waking up at the same time every day, even on weekends. Avoid caffeine, large meals, and screen time before bed to improve your chances of falling and staying asleepStableRX: listedEncouraged heart health/low sodium diet Educate patient on symptoms of hypertension including blurred vision, headache, dizziness Encouraged daily blood pressure checks and tracking. Instructed patient to notify CB or PCP if blood pressure >160/90 or <90/60.StableRX: listedTo manage GERD, avoid trigger foods like spicy or fatty foods, eat smaller meals, and avoid lying down immediately after eating. Avoid tomatoes/tomatoe sauce, or any citrusy food. Elevate the head of your bed and maintain a healthy weightStableRX: listedROM exercises, heat therapy, and conitnu ewith PCP.StableRX: listedMonitor for acute respiratory s/sx (eg. SOB, wheezing) and continue with PCP.StableFall risk precautions, monitor for acute changes in mental status and continue with PCP.StableSkin assessment routinely, monitor for skin changes, skin protection, and continue with PCP. 2025-06-26 06:08:10 Estab. patient 10-29 min; 1 minor problem; add add modifier 95 for video, modifier 93 for phoneContinue to see PCP. Follow-up with Maddi as needed for any acute or disease education needs that may arise 24/05.StableRX: listedROM exercises, heat therapy, and conitnue with PCP.Mariluz gelAcetaminophenShower chair ordered. Goals Date Goal 2024-10-03 Continue taking medi cations as directed and keep all follow up appointments with established PCP and Specialist. 2025-05-21 Remember to adhere t o dietary and lifestyle interventions. 2025-05-21 Contact us if develsusi ping health-related concerns. 2025-05-21 Continue f/u care an d monitoring with PCP every 3-6 months. Health Concerns Date Concern 2025-06-26 Patient/Guardian lashell huerta to visit via telehealth.Visit completed via:[ ] audio and video; [x] audio only 2025-06-26 Concerns for today's visit:Seen for request for a shower chair. Also reports having chest pain a few days ago that was relieved with Tylenol, Aspirin and Ibuprofen. 2025-06-26 Most recent hospital stay or ER visit:No ER visits or hospitalizations documented in [facility] in 90 days.Member denies ER visits or hospitalizations in last 90 days. 2025-06-26 Open HEDIS Measures: No open measures 2025-06-26 REMINDERS (DELETE IA IOR TO SIGNING NOTE):Review Outside Care and [facility] for any updates to medical historyReview and update contingency plan based on most recent ER utilizationLook for New or In Progress tasks and follow-up as neededProvide education on behavioral modifications for better chronic disease control or symptom management
--- OUTSIDE RECORDS SUMMARY | 2025-07-11 16:54 | XMS_ITS | Patient Health Record ---
Author Organization [facility] Address [address] [place] [address] Care Team Providers Care Echo Technician Name Role Phone Wilbert Sahu Erwin [phone] Reason For Referral No Information Plan Of Treatment No Information
--- NOTE | 2025-07-16 10:13 | HO.ANESPROP2 ---
Documented by User: Katarina Justin NP 07/16/25 10:13 HPI - Anesthesia Eval Consult details Narrative: 75 yr old female for upper endoscopy, coloscopy Type 2 DM: most recent HbA1c recorded at 6.7% [facility] Active Problems Active Problems: All Active Problems (Updated 03/28/25 @ 11:10 by Юлия Linares MD) Personal history of colonic polyps (Acute) Osteopenia (Acute) Achalasia (Acute) Physical exam (Acute) Pain of right clavicle (Acute) Essential hypertension (Acute) Dysphagia (Acute) Chronic GERD (Acute) Mild recurrent major depression (Acute) Rib pain on left side (Acute) Neuropathy of lower extremity (Acute) Cognitive impairment (Acute) Physical exam (Acute) Right lateral epicondylitis (Acute) Left knee pain (Acute) Abdominal pain (Acute) Bilateral knee pain (Acute) Encounter for Medicare annual wellness exam (Acute) Vulvar itching (Acute) Vaginal lesion (Acute) Back pain (Acute) Hypercalcemia (Acute) Dysphagia (Acute) Hyperlipidemia LDL goal <70 (Acute) Moderate asthma (Acute) Multinodular thyroid (Acute) Left leg pain (Acute) Genital herpes simplex (Acute) Polyarthralgia (Acute) Chest pain (Acute) Precordial chest pain (Acute) Type 2 diabetes mellitus with unspecified complications (Acute) Essential hypertension (Acute) Other and unspecified hyperlipidemia (Acute) Autoimmune thyroiditis (Acute) Obesity (BMI 30-39.9) (Acute) GERD (gastroesophageal reflux disease) (Acute) Asthma (Acute) Osteoarthritis (Acute) Depression (Acute) Dyslipidemia (Acute) Thyroid nodule (Acute) Insomnia (Acute) Past Medical History Medical History Mild recurrent major depression Hypercalcemia Dysphagia Hyperlipidemia LDL goal <70 Moderate asthma Age related osteoporosis Multinodular thyroid Left leg pain Diabetes Autoimmune thyroiditis Obesity (BMI 30-39.9) GERD (gastroesophageal reflux disease) Asthma Osteoarthritis Depression Dyslipidemia Thyroid nodule Insomnia Family History Family History Father Edema Mother Diabetes CVA (cerebral vascular accident) Hypertension Surgical History Surgical History History of surgery History of laparoscopic cholecystectomy Hx of colonoscopy Hx of wisdom tooth extraction Hx of tubal ligation Hx of appendectomy Social History Social History Household Members: None Housing: Apartment Alcohol intake: never Patient Tobacco Use Status: Never used Tobacco e-Cigarette/Vaping Use: Never Used Second Hand Smoke Exposure: No Use of substances other than those prescribed or required for medical reasons: No Advance Directives: No Advance Directives Information Provided: Yes Advance Directives Date on File: 08/15/20 Patient : No : No Poor oral hygiene: No service: No Current occupational status: disabled Cognitive needs: No Hearing needs: No Vision needs: Yes Meds Allergies Allergy/AdvReac Type Severity Reaction Status Date / Time No Known Allergies (No Known Allergy Verified 05/01/25 11:05 Allergies*) Home Medications ?Medication ?Instructions ?Recorded ?Confirmed ?Last Taken ?Type vitamin B complex 1 tab PO DAILY 09/24/21 05/01/25 Unknown History Documented by User: Carlo Perla MD 07/17/25 09:11 [facility] Past Medical History Medical History Mild recurrent major depression Hypercalcemia Dysphagia Hyperlipidemia LDL goal <70 Moderate asthma Age related osteoporosis Multinodular thyroid Left leg pain Diabetes Autoimmune thyroiditis Obesity (BMI 30-39.9) GERD (gastroesophageal reflux disease) Asthma Osteoarthritis Depression Dyslipidemia Thyroid nodule Insomnia Functional capacity: independent ambulation Family History Family History Father Edema Mother Diabetes CVA (cerebral vascular accident) Hypertension Family history of problems with anesthesia: No Surgical History Surgical History History of surgery History of laparoscopic cholecystectomy Hx of colonoscopy Hx of wisdom tooth extraction Hx of tubal ligation Hx of appendectomy Social History Social History Household Members: None Housing: Apartment Alcohol intake: never Patient Tobacco Use Status: Never used Tobacco e-Cigarette/Vaping Use: Never Used Second Hand Smoke Exposure: No Use of substances other than those prescribed or required for medical reasons: No Advance Directives: No Advance Directives Information Provided: Yes Advance Directives Date on File: 08/15/20 Patient : No : No Poor oral hygiene: No service: No Current occupational status: disabled Cognitive needs: No Hearing needs: No Vision needs: Yes Meds Allergies Allergy/AdvReac Type Severity Reaction Status Date / Time No Known Allergies (No Known Allergy Verified 05/01/25 11:05 Allergies*) Home Medications ?Medication ?Instructions ?Recorded ?Confirmed ?Last Taken ?Type vitamin B complex 1 tab PO DAILY 09/24/21 05/01/25 Unknown History Exam Exam Date and Time: 07/17/2025 Airway Mallampati Class: III TM Dist: >3cm Neck ROM: Full Loose/Missing/Broken Teeth: Yes (has some loose teeth ) Heart: rrr Lungs: cta Other: normal Assessment and Plan Assessment Anesthesia Assessment: Anesthesia Plan Discussed Final Anesthetic Review Family History of Problems with Anesthesia: No NPO: Yes ASA Class: III Final Preanesthetic Review: No Changes in Pt Med Stat, Meds/Allgs Chart Reviewed, Consent Obtained/Reviewed and Anes Risks/Benef Reviewed Patient Risk: Intermediate Procedure Risk: Low Anesthetic Plan Anesthetic Plan: MAC: Disposition: Standard PACU
[2025-07-17 08:01] VITALS: BP 140/61; PULSE 69; RESP 16; TEMP 36.3; O2SAT 99; BMI 31.8
[2025-07-17 08:31] LABS: Glucose, Whole Blood 133 mg/dL (60-115)
--- NOTE | 2025-07-17 08:35 | MHC.SHP ---
Pre-Procedural Eval Section A - 24 Hr Update-Section A only Date of Service: 07/17/25 Section B - Complete if H&P > 30 days Chief Complaint: Dysphagia, hx of polyps Details of Present Illness: Mild recurrent major depression Hypercalcemia Dysphagia Hyperlipidemia LDL goal <70 Moderate asthma Age related osteoporosis Multinodular thyroid Left leg pain Diabetes Autoimmune thyroiditis Obesity (BMI 30-39.9) GERD (gastroesophageal reflux disease) Asthma Osteoarthritis Depression Dyslipidemia Thyroid nodule Insomnia Surgical History History of laparoscopic cholecystectomy Hx of colonoscopy Hx of wisdom tooth extraction Hx of tubal ligation Hx of appendectomy Present Medications: see Short Stay Collaborative assessment Allergies: Allergies Allergy/AdvReac Type Severity Reaction Status Date / Time No Known Allergies (No Known Allergy Verified 05/01/25 11:05 Allergies*) Review of Systems Review of Systems Comment: Ten point ROS negative Exam Exam Comment: Gen appear: No acute distress HEENT: no icterus Chest: No overt resp distress Abd: soft, nontender, nondistended Psych: Stable affect, answering questions appropriately Neuro: A/Ox3 noted to move all extremities spontaneously Ext: no peripheral edema Plan Diagnosis/Plan: Unchanged I have reviewed the history and physical and performed a pertinent physical examination on my patient. No changes have occurred unless specified. Time Spent With Patient Time: Total time managing care of this patient today ____ minutes.
[2025-07-17] MEDS: Lactated Ringers 1,000 ML 100 ML IVCONT (08:36)
[2025-07-17 10:04] VITALS: BP 97/59; PULSE 64; RESP 14; TEMP 36.9; O2SAT 99
--- NOTE | 2025-07-17 10:05 | P.OPN-COLO_ITS ---
Colonoscopy Operative Note Operative Note Date of Service: 07/17/25 Narrative: Procedure: Upper endoscopy and colonoscopy Indication: Dysphagia, hx of polyps Endoscopist: Юлия Linares MD Anesthesia Provider: Dr Prela Anesthesia type: MAC Instrument: GIF-H190 and PCF-[id number] EGD Procedure:?? The procedure, indications, preparation and potential complications were reviewed with the patient, who indicated understanding and gave written informed consent to proceed. The endoscope was introduced through the mouth, and advanced to the 2nd part of the duodenum. The mucosa was carefully examined on slow withdrawal of the endoscope. The patient tolerated the procedure well. There were no immediate complications.? EGD Findings:? * Esophagus:? Normal esophageal mucosa was noted. The Z-line was at 34 cm. Cold forceps biopsies were taken from middle and lower esophagus to rule out eosinophilic esophagitis. * Stomach:? Normal gastric mucosa. Too numerous to count polyps in the fundus and body of the stomach. Cold snare polypectomy was performed for the larger polyps measuring 10-13 mm. Retroflexion was performed in the cardia. * Duodenum:? Normal duodenal mucosa. Additional intervention: Soft tip Savary wire was introduced through the biopsy channel of the gastroscope and advanced to the antrum. ?The gastroscope was then backed out. ?Savary Daljit bougie was advanced over the guidewire and the esophagus was dilated to 17 mm without any resistance felt. ?On relook, small heme and superficial tear was noted at the level of cricopharyngeus. ? Colonoscopy Procedure:? The patient was then turned for the colonoscopy. A digital rectal exam was performed which was normal.? A distal attachment cap was affixed to the tip of the scope and the colonoscope was then inserted through the anus and advanced through the colon and advanced to the cecum at 80 cm and terminal ileum.? Appendiceal orifice and ileocecal valve were identified. Mucosa was carefully examined under high definition white light as the instrument was slowly withdrawn in a retrograde panoramic fashion. Retroflexion was performed in rectum. The procedure was not difficult. The quality of the prep was BBPS: 2+2+2 = adequate Withdrawal time 12 minutes Limitations: No limitations Findings: Mucosa: Normal colon and terminal ileum mucosa. Protruding lesions: * One sessile polyp of size 4 mm noted in ascending colon. Cold snare polypectomy was performed. The polyp was completely removed and retrieved. * One sessile polyp of size 6 mm noted in transverse colon. Cold snare polypectomy was performed. The polyp was completely removed and retrieved. * Medium internal hemorrhoids without stigmata of recent bleeding. Excavated lesions: * Mild diverticulosis of left side of the colon noted. Impression: 1. Cricopharyngeal stenosis (dilation) 2. Gastric polyps 3. Normal duodenum 4. Normal colon and terminal ileum mucosa 5. Total 2 polyps removed 6. Diverticulosis 7. Internal hemorrhoids Recommendations:?? * Follow-up path results * Avoid NSAIDs * Repeat EGD may be repeated for recurrence of symptoms as needed. * Repeat colonoscopy for CRC screening in 5-7 years if polyps are adenoma.
[2025-07-17 10:15] VITALS: BP 118/74; PULSE 64; RESP 14; O2SAT 99
[2025-07-17 10:30] VITALS: BP 122/80; PULSE 71; RESP 14; O2SAT 99
[2025-07-17 10:45] VITALS: BP 122/80; PULSE 70; RESP 18; TEMP 36.8; O2SAT 100
== END 2025-07-17 11:23 | disposition home or self-care (01) ==
PROVIDERS: PCP Internal Medicine; Visit Provider Internal Medicine
PROC: (CPT 45385; principal; 2025-07-17 09:10)
DX: Z12.11 Encounter for screening for malignant neoplasm of colon (principal); D12.2 Benign neoplasm of ascending colon; K57.30 Diverticulosis of large intestine without perforation or abscess without bleeding; R13.10 Dysphagia, unspecified; Z86.0101 Personal history of adenomatous and serrated colon polyps; K22.0 Achalasia of cardia; K31.7 Polyp of stomach and duodenum; K21.9 Gastro-esophageal reflux disease without esophagitis; E11.9 Type 2 diabetes mellitus without complications; I10 Essential (primary) hypertension; E78.5 Hyperlipidemia, unspecified; J45.909 Unspecified asthma, uncomplicated; Z79.02 Long term (current) use of antithrombotics/antiplatelets; Z79.82 Long term (current) use of aspirin
CPT/HCPCS: 45385; 43251; 43248; 43239; 82947; 88305; 88313; 88342; C1769; J2003; J2704; J3010

== ENCOUNTER → 2025-07-17 07:28 | Outpatient (BNV) | payer OTHER, SELFPAY | PROVIDERS: PCP Internal Medicine; Visit Provider Internal Medicine | DX: Z12.11 Encounter for screening for malignant neoplasm of colon (principal); D12.3 Benign neoplasm of transverse colon; D12.2 Benign neoplasm of ascending colon; K57.90 Diverticulosis of intestine, part unspecified, without perforation or abscess without bleeding; K64.8 Other hemorrhoids; R13.10 Dysphagia, unspecified; K31.7 Polyp of stomach and duodenum | CPT/HCPCS: 43248; 43251; 45385 ==

== ENCOUNTER 2025-08-06 09:19 | Outpatient (AMB) | payer OTHER, SELFPAY ==
--- NOTE | 2025-08-06 09:23 | A.OFFVIS_ITS ---
Vital Signs 08/06/25 09:25 Height 4 ft 10 in Weight 147 lb 11.355 oz BMI 30.9 BP 112/62 Blood Pressure Location Lt brachial Position Sitting Pulse 66 Intake Visit Reasons: s/p double Intake Note: Ese presents in the office as a follow up for her EGD and COLO. CC: Project Estimator Required: Yes Project Estimator Name: daughter Allergies No Known Allergies (No Known Allergies*) Allergy (Verified 08/06/25 09:23) HPI Comments Details: 74 y.o F with PMH of who is here for difficulty swallowing. Reports longstanding sx but recently have been getting worse. Has pain on swallowing feels that food goes down very slowly. Mostly with solids. Barium swallow 09/2024: 1. Mild cricopharyngeal achalasia. 2. Mildly disordered esophageal peristalsis. 3. Nonobstructing Schatzki's ring. 4. Small to moderate size type I hiatal hernia. 5. Multiple well-circumscribed filling defects in the fundus and body of the stomach that may present hyperplastic polyps. Mild rugal fold thickening suggesting gastritis. Recommend correlation with EGD. 6. Status post cholecystectomy. Colonoscopy 2019 (Dr Montiel) 10 mm sigmoid colon tubular adenoma. 07/17/25: EGD/colo 1. Cricopharyngeal stenosis (dilation) 2. Gastric polyps 3. Normal duodenum 4. Normal colon and terminal ileum mucosa 5. Total 2 polyps removed 6. Diverticulosis 7. Internal hemorrhoids Path: A. Gastric polyps: Fundic gland polyps and gastric body mucosa with minimal chronic inactive inflammation; no intestinal metaplasia seen on initial levels; negative for dysplasia. B. Esophagus, lower, biopsy: Squamous mucosa with no specific change; no columnar mucosa present. C. Esophagus, middle, biopsy: Squamous mucosa with no specific change; no columnar mucosa present. D. Colon, ascending, polyp: Tubular adenoma; negative for high-grade dysplasia and carcinoma. E. Colon, transverse, polyp: Hyperplastic polyp 08/06/25: Here for follow up. Reports good response to esophageal dilation. Swallowing has improved. Results of EGD/colo reviewed. x2 polyps - HP polyp in transverse colon to be managed as SSL. Reports occasional constipation with straining. [facility] Medical History (Updated 08/06/25 @ 09:47 by Юлия Linares MD) Mild recurrent major depression Hypercalcemia Dysphagia Hyperlipidemia LDL goal <70 Moderate asthma Age related osteoporosis Multinodular thyroid Left leg pain Diabetes Autoimmune thyroiditis Obesity (BMI 30-39.9) GERD (gastroesophageal reflux disease) Asthma Osteoarthritis Depression Dyslipidemia Thyroid nodule Insomnia Surgical History (Updated 08/06/25 @ 09:33 by JOSE Ely) History of esophagogastroduodenoscopy (EGD) History of surgery History of laparoscopic cholecystectomy Hx of colonoscopy Hx of wisdom tooth extraction Hx of tubal ligation Hx of appendectomy Family History Father Edema Mother Diabetes CVA (cerebral vascular accident) Hypertension Social History Household Members: None Housing: Apartment Alcohol intake: never Patient Tobacco Use Status: Never used Tobacco e-Cigarette/Vaping Use: Never Used Second Hand Smoke Exposure: No Advance Directives Date on File: 08/15/20 service: No Current occupational status: disabled Cognitive needs: No Hearing needs: No Vision needs: Yes Female Reproductive History Menstrual Age of Menarche: 15 Review of Systems Const All systems reviewed & are unremarkable except as noted in HPI and below Physical Exam Exam Exam: No apparent distress Nonicteric Abdomen soft, nondistended Alert and oriented x3, normal gait Vital Signs: Last Vital Signs Pulse 66 08/06/25 09:25 BP 112/62 08/06/25 09:25 BMI result Body Mass Index 30.9 Assessment & Plan Assessment & Plan (1) Dysphagia: Code(s): R13.10 - Dysphagia, unspecified Category: Medical (2) Personal history of colonic polyps: Code(s): Z86.0100 - Personal history of colon polyps, unspecified Category: Medical (3) Constipation: Code(s): K59.00 - Constipation, unspecified Category: Medical Plan 1. Dysphagia 2/2 cricopharyngeal narrowing. Has had good response to dilation. Offered up- dilation to 20 mm but pt prefers to hold off for now. Will call us needed for recurrence of dysphagia. 2. Hx of polyps Results reviewed. Repeat colo in 5 years if pt in good health. 3. Constipation Chronic, intermittent. Recommend increase in fluid intake, fiber supplementation. Miralax daily. Can skip for diarrhea. Follow up PRN Medications: New polyethylene glycol 3350 (Miralax) 17 grams PO DAILY 238 grams 0RF Coding Level of Care Code Est Pt Level 3 (39414) Diagnoses Dysphagia R13.10 Personal history of colonic polyps Z86.0100 Constipation K59.00
[2025-08-06 09:25] VITALS: BP 112/62; PULSE 66; BMI 30.9
--- OUTSIDE RECORDS SUMMARY | 2025-08-06 10:31 | XMS_ITS ---
Author Name Nhi Varela NP Address [address] [place] [address] Phone [phone] [facility] Care Team Providers Care Wire Winding Machine Operator Name Role Phone Nhi Varela Unavailable [phone] VINCENT JOHANA SANTORO Unavailable [phone] Unavailable Unavailable Unavailable Reason for Referral Not [...] coughing or SOA 2025-04-04 No Data Available Wallix Ultra 2 w/Device Kit DIRECTED 2025-04-25 No [...] (do not use for phone, instead use 57380-35) [facility]20[place] Type 2 diabetes mellitus wit h [...] (do not use for phone, instead use 00204-41) [facility] New patient,40-59min; chronic exacerbation, 2 stable chronic or 1 acute illness add add modifier 95 for video (do not use for phone, instead use 01550-20) [facility]20[place] New patient,40-59min; chronic exacerbation, 2 stable chronic or 1 acute illness add add modifier 95 for video (do not use for phone, instead use 46040-89) [facility]20[place] New patient,40-59min; chronic exacerbation, 2 stable chronic or 1 acute illness add add modifier 95 for video (do not use for phone, instead use 73641-58) [facility]20[place] New patient,40-59min; chronic exacerbation, 2 stable chronic or 1 acute illness add add modifier 95 for video (do not use for phone, instead use 30329-26) [facility] New patient,40-59min; chronic exacerbation, 2 stable chronic or 1 acute illness add add modifier 95 for video (do not use for phone, instead use 20295-91) [facility] Estab. patient 10-29min; 1 minor problem; add add modifier 95 for video, modifier 93 for [facility]2025 Severe persistent asthma, uncomplicated Estab. patient 10-29min; 1 minor problem; add add modifier 95 for video, modifier 93 for phone [facility]20[place] Estab. patient 10-29min; 1 minor problem; add add modifier 95 for video, modifier 93 for [facility]20[place] Type 2 diabetes [...] modifier 95 for video, modifier 93 for [facility]20[place] Estab. patient 10-29min; 1 minor problem; add add modifier 95 for video, modifier 93 for [facility]20[place] Estab. patient 10-29min; 1 minor problem; add add modifier 95 for video, modifier 93 for [facility]20[place] Estab. patient 10-29min; 1 minor problem; add add modifier 95 for video, modifier 93 for [facility]20[place] Estab. patient 10-29min; 1 minor problem; add add modifier 95 for video, modifier 93 for [facility]20[place] Estab. patient 10-29min; 1 minor problem; add add modifier 95 for video, modifier 93 for phone [facility] 05[place]21/20[place] Estab. patient 10-29min; 1 minor problem; add add modifier 95 for video, modifier 93 for phone [facility] 05/21/2025 Estab. patient 10-29min; 1 minor problem; add add modifier 95 for video, modifier 93 for phone [facility] 05/21/2025 Estab. patient 10-29min; 1 minor problem; add add modifier 95 for video, modifier 93 for phone [facility] 05/21/2025 Estab. patient 10-29min; 1 minor problem; add add modifier 95 for video, modifier 93 for phone [facility] 06/26/2025 Pain in right shoulderPain i n left shoulderOther chronic painUnspecified osteoarthritis, unspecified site Vital Signs Date of Collection Vitals 2024-10-03 [...] tive Time Current Smoking Status Never smoker 6 Sex Female History of Procedures Procedures Service Procedure code Service date Servicing provider Phone# New patient,40-59min; chronic exacerbation, 2 stable chronic or 1 acute illness add add modifier 95 for video (do not use for phone, instead use 28603-87) 71251 2024-10-03 No Data Available No Data Availa [...] 95 for video, modifier 93 for phone 85089 2025-04-04 No Data Available No Data Availa ble Medication List Documented (1159F) 1159F 2025-04-04 No Data Available No Data Sasha ilable Estab. patient 10-29min; 1 minor problem; add add modifier 95 for video, modifier 93 for phone 53516 2025-05-21 No Data Available No Data Availa [...] 1125F 2025-05-21 No Data Available No Data Ssaha ilable SBP < 130 (3074F) 3074F 2025-05-21 No Data Available No Data Available DBP <80 (3078F) 3078F 2025-05-21 No Data Available No Data Available Estab. patient 10-29min; 1 minor problem; add add modifier 95 for video, modifier 93 for phone 28639 2025-06-26 No Data Available No Data Availa [...] 4 times per day prn #90 gram [id number] Review by prescribing provider or pharmacist documented [...] may arise 24/05.Arnuity + Albuterol HFA prn 04/04/Member called into acute requesting medications changesReports her [...] and conitnue with PCP.Mariluz WhiteheadaminophenShower chair ordered. Goals Date Goal 2024-10-03 Continue taking medi cations as directed and keep all follow up appointments with established PCP and Specialist. 2025-05-21 Remember to adhere t o dietary and lifestyle interventions. 2025-05-21 Contact us if mynor ping health-related concerns. 2025-05-21 Continue f/u care an d monitoring with PCP every 3-6 months. Health Concerns Date Concern 2025-06-26 Patient/Guardian agr bradley to visit via telehealth.Visit completed via:[ ] [...] Measures: No open measures 2025-06-26 REMINDERS (DELETE [place] IOR TO SIGNING NOTE):Review Outside Care and [facility] for any updates to medical historyReview and update contingency plan based on most recent ER utilizationLook for New or In Progress tasks and follow-up as neededProvide education on behavioral modifications for better chronic disease control or symptom management
--- OUTSIDE RECORDS SUMMARY | 2025-08-06 10:32 | XMS_ITS | Patient Health Record ---
Author Organization [facility] Address [address] [place] [address] Care Team Providers Care Imaging Nurse Name Role Phone Wilbert Sahu Erwin [phone] Reason For Referral No Information Plan Of Treatment No Information
== END 2025-08-06 09:53 | disposition home or self-care (01) ==
LOC: HO.HGI 09:20
PROVIDERS: PCP Internal Medicine; Visit Provider Internal Medicine
DX: R13.10 Dysphagia, unspecified (principal); Z86.0100 Personal history of colon polyps, unspecified; K59.00 Constipation, unspecified
CPT/HCPCS: 99213

== ENCOUNTER → 2025-08-06 09:19 | Outpatient (BNVA) | payer OTHER, SELFPAY | PROVIDERS: PCP Internal Medicine; Visit Provider Internal Medicine | DX: R13.10 Dysphagia, unspecified (principal); K59.00 Constipation, unspecified; Z86.0100 Personal history of colon polyps, unspecified | CPT/HCPCS: 99212 ==

== ENCOUNTER 2025-08-13 09:49 | Outpatient (REF) | payer OTHER, SELFPAY ==
--- NOTE | ~2025-08-13 | XR_ITS ---
CLINICAL HISTORY: M25.521 - Pain in right elbow 3 view right elbow Comparison: None provided Findings: No acute fractures. Normal alignment. No significant loss of joint space, osteophytes, or erosions. Small right elbow joint effusion. No radiopaque foreign body. IMPRESSION: No acute fracture. Small right elbow joint effusion. This document has been electronically signed by: Macrina Springer MD on 08/13/2025 12:40:47
--- NOTE | ~2025-08-13 | XR_ITS ---
CLINICAL HISTORY: M25.511 - Pain in right shoulder 4 view right shoulder Comparison: None provided Findings: Bones intact. No dislocations. [id number] AC osteoarthritis. No erosions. No radiopaque foreign body. A few small mineralized foci measuring up to 7 mm in the vicinity of the greater tuberosity suggestive of calcific tendinosis. IMPRESSION: A few small mineralized foci measuring up to 7 mm in the vicinity of the greater tuberosity suggestive of calcific tendinosis. This document has been electronically signed by: Macrina Springer MD on 08/13/2025 12:42:13
== END 2025-08-13 09:50 | disposition home or self-care (01) ==
LOC: HO.XRAY 09:49
PROVIDERS: PCP Internal Medicine
DX: M25.511 Pain in right shoulder (principal); M25.521 Pain in right elbow; R11.0 Nausea; G47.00 Insomnia, unspecified; K21.9 Gastro-esophageal reflux disease without esophagitis; E78.5 Hyperlipidemia, unspecified; Z79.899 Other long term (current) drug therapy
CPT/HCPCS: 73030; 73070; 99212

== ENCOUNTER 2025-08-13 09:49 | Outpatient (AMB) | payer OTHER, SELFPAY ==
--- OUTSIDE RECORDS SUMMARY | 2025-08-13 09:56 | XMS_ITS ---
Author Name Nhi Varela NP Address [address] [place] [address] Phone [phone] [facility] Care Team Providers Care Senior It Specialist Name Role Phone Nhi Varela Unavailable [phone] VINCENT JOHANA SANTORO Unavailable [phone] Unavailable Unavailable Unavailable Reason for Referral Not [...] Data Available Acyclovir 800 mg Tab TOME NEFTAYL TABLETA PO R V A ORAL DOS [...] coughing or SOA 2025-04-04 No Data Available Dogi Ultra 2 w/Device Kit DIRECTED 2025-04-25 No [...] (do not use for phone, instead use 47779-87) [facility], ([place]) 10/03/2024 Type 2 diabetes mellitus wit h [...] (do not use for phone, instead use 72583-44) [facility]20[place] New patient,40-59min; chronic exacerbation, 2 stable chronic or 1 acute illness add add modifier 95 for video (do not use for phone, instead use 85526-81) [facility]/20[place] New patient,40-59min; chronic exacerbation, 2 stable chronic or 1 acute illness add add modifier 95 for video (do not use for phone, instead use 96638-86) [facility] 10/03/2024 New patient,40-59min; chronic exacerbation, 2 stable chronic or 1 acute illness add add modifier 95 for video (do not use for phone, instead use 41257-07) [facility] 10/03/2024 New patient,40-59min; chronic exacerbation, 2 stable chronic or 1 acute illness add add modifier 95 for video (do not use for phone, instead use 15105-70) [facility] New patient,40-59min; chronic exacerbation, 2 stable chronic or 1 acute illness add add modifier 95 for video (do not use for phone, instead use 32816-01) [facility] Estab. patient 10-29min; 1 minor problem; add add modifier 95 for video, modifier 93 for [facility]2025 Severe persistent asthma, uncomplicated Estab. patient 10-29min; 1 minor problem; add add modifier 95 for video, modifier 93 for phone [facility]20[place] Estab. patient 10-29min; 1 minor problem; add add modifier 95 for video, modifier 93 for [facility]2025 Type 2 diabetes mellitus wit [...] modifier 95 for video, modifier 93 for [facility]/21/2025 Estab. patient 10-29min; 1 minor problem; add add modifier 95 for video, modifier 93 for [facility] 05/21/2025 Estab. patient 10-29min; 1 minor problem; add add modifier 95 for video, modifier 93 for [facility] 05/21/2025 Estab. patient 10-29min; 1 minor problem; add add modifier 95 for video, modifier 93 for [facility] 05[place]/2025 Estab. patient 10-29min; 1 minor problem; add add modifier 95 for video, modifier 93 for [facility] 05/21/2025 Estab. patient 10-29min; 1 minor problem; add add modifier 95 for video, modifier 93 for phone [facility] 05/21/2025 Estab. patient 10-29min; 1 minor problem; add add modifier 95 for video, modifier 93 for phone [facility] 05/21/2025 Estab. patient 10-29min; 1 minor problem; add add modifier 95 for video, modifier 93 for phone [facility] 05/21/2025 Estab. patient 10-29min; 1 minor problem; add add modifier 95 for video, modifier 93 for phone [facility] 05/21/2025 Estab. patient 10-29min; 1 minor problem; add add modifier 95 for video, modifier 93 for phone [facility] 06/26/2025 Pain in right shoulderPain i n [...] tive Time Current Smoking Status Never smoker 2025-08-01 3 Sex Female History of Procedures Procedures Service Procedure code Service date Servicing provider Phone# New patient,40-59min; chronic exacerbation, 2 stable chronic or 1 acute illness add add modifier 95 for video (do not use for phone, instead use 82115-39) 61932 2024-10-03 No Data Available No Data Availa [...] 95 for video, modifier 93 for phone 55987 2025-04-04 No Data Available No Data Availa ble Medication List Documented (1159F) [id number] 2025-04-04 No Data Available No Data Sasha ilable Estab. patient 10-29min; 1 minor problem; add add modifier 95 for video, modifier 93 for phone [id number] 2025-05-21 No Data Available No Data Availa [...] 95 for video, modifier 93 for phone 79403 2025-06-26 No Data Available No Data Availa [...] 4 times per day prn #90 gram [id number] Review by prescribing provider or pharmacist documented [...] Measures: No open measures 2025-06-26 REMINDERS (DELETE [place] IOR TO SIGNING NOTE):Review Outside Care and [facility] for any updates to medical historyReview and update contingency plan based on most recent ER utilizationLook for New or In Progress tasks and follow-up as neededProvide education on behavioral modifications for better chronic disease control or symptom management
[2025-08-13 09:59] VITALS: BP 110/60; PULSE 77; RESP 18; TEMP 36.2; O2SAT 96; BMI 31.8
--- NOTE | 2025-08-13 09:59 | A.OFFPC_ITS ---
Vital Signs 08/13/25 09:59 Height 4 ft 10 in Weight 152 lb BMI 31.8 BP 110/60 Blood Pressure Location Lt brachial Position Sitting Respiration 18 Pulse 77 Pulse Source Pulse Oximeter Temp 97.1 F Temp Source Temporal Artery Scan Pulse Oximetry (%) 96 Oxygen Delivery Method Room Air Intake Visit Reasons: Nausea and pain in right Underwriting Manager Required: Yes Underwriting Manager Language: Court Interpreter Name: [id number]/[email or web address] Accompanied by: Self / Same As Patient Allergies No Known Allergies (No Known Allergies*) Allergy (Verified 08/13/25 10:19) Medication List - Last Reconciled 08/13/25 by CARL Lau acetaminophen (Tylenol Extra Strength) 500 mg PO Q6H PRN albuterol sulfate 90 mcg/actuation 2 puffs inhalation Q4-6H PRN 30 days aspirin (Adult Aspirin Regimen) 81 mg PO DAILY 30 days blood pressure test kit-large (Advocate Blood Pressure Monitor kit) As directed blood sugar diagnostic (OneTouch Ultra Test strips) As directed- BID blood sugar diagnostic (Accu-Chek Guide test strips) Use 1 test strip once a day blood-glucose meter (Accu-Chek Guide Glucose Meter) As directed blood-glucose meter (OneTouch Verio Flex Meter) As directed cane As directed cholecalciferol (vitamin D3) 25 mcg PO DAILY 90 days fluticasone furoate 50 mcg/actuation (Arnuity Ellipta) 1 inh inhalation Q24H 30 days lancets (Onetouch Delica Safety Lancet) As directed two times per day lancets (Accu-Chek Softclix Lancets) Use 1 lancet once a day levothyroxine 50 mcg PO DAILY 90 days lisinopril 2.5 mg PO DAILY 90 days metformin 500 mg PO BID 90 days pantoprazole 40 mg PO DAILY 90 days polyethylene glycol 3350 (Miralax) 17 grams PO DAILY simvastatin 40 mg PO BEDTIME 90 days vitamin B complex 1 tab PO DAILY zolpidem 10 mg PO BEDTIME PRN 30 days Tobacco use date assessed: 08/13/25 Fall risk assessment: No Falls in past year Last assessed Fall Risk: 08/13/25 Dental Screening Dental Screen Date: 08/13/25 Did you have a dental visit in the last 12 months?: No Did you have a dental problem in the last 6 months where you did not have access to dental care?: No Was dental information given to patient?: No HPI Nausea and pain in right HPI Details The patient is a 75-year-old female presenting with arm pain, nausea, and insomnia. The arm pain has been persistent, with the patient unable to lift right arm without experiencing pain and nausea. The pain is localized in the right elbow and shoulder , with associated weakness when lifting objects. The patient denies any recent arm injury. The patient reports insomnia due to the pain, having been unable to sleep since the past three days. She has been taking pantoprazole inconsistently and incorrectly, which may contribute to her nausea. will put in PT IN THE JOINT intact [facility] Medical History (Updated 08/13/25 @ 19:50 by CARL Lau) Mild recurrent major depression Hypercalcemia Dysphagia Hyperlipidemia LDL goal <70 Moderate asthma Age related osteoporosis Multinodular thyroid Left leg pain Diabetes Autoimmune thyroiditis Obesity (BMI 30-39.9) GERD (gastroesophageal reflux disease) Asthma Osteoarthritis Depression Dyslipidemia Thyroid nodule Insomnia Surgical History History of esophagogastroduodenoscopy (EGD) History of surgery History of laparoscopic cholecystectomy Hx of colonoscopy Hx of wisdom tooth extraction Hx of tubal ligation Hx of appendectomy Family History Father Edema Mother Diabetes CVA (cerebral vascular accident) Hypertension Social History Household Members: None Housing: Apartment Alcohol intake: never Patient Tobacco Use Status: Never used Tobacco e-Cigarette/Vaping Use: Never Used Second Hand Smoke Exposure: No Advance Directives Date on File: 08/15/20 service: No Current occupational status: disabled Cognitive needs: No Hearing needs: No Vision needs: Yes Female Reproductive History Menstrual Age of Menarche: 15 Questionnaire Thrive Questionnaire Date Thrive assessed: 05/01/25 I am a: Patient What is your living situation today?: I have a steady place to live Within the past 12 months, did the food you bought not last and you didn't have the money to get more?: Sometimes True Within the past 12 months, did you worry whether your food would run out before you got money to buy more?: Sometimes True Do you have trouble paying for medicines?: No Do you have trouble getting transportation to medical appointments?: No Do you have trouble paying your heating and electricity bill?: No Do you have trouble taking care of your child, family member or friend?: Yes Do you have trouble with day-to-day activities such as bathing, preparing meals, shopping, managing finances, etc.?: Yes Are you currently unemployed and looking for a job?: No Are you interested in more education?: No Please select the resources that you would like help with: Food Currently or been in a relationship where the following occur: No concerns reported THRIVE Score: 2 LIZZETTE-7 AMB Questionnaire LIZZETTE-7 Date LIZZETTE - 7 assessed: 12/05/24 Source: Developed by Drs. Wilbert Garcia, Mary Vera, Dimitry Church and colleagues, with an educational amairani from [employer]. Review of Systems Const Denies chills, Reports difficulty sleeping and Denies fever(s) Eyes Denies loss of vision ENT Reports no additional complaints Card Denies chest pain, Denies leg edema and Denies dyspnea Resp Denies cough and Denies dyspnea GI Reports nausea Musc Reports arthralgias (right shoulder and elbow) Neuro Denies loss of vision Physical exam (Primary Care) Vital Signs: Last Vital Signs Temp 97.1 F 08/13/25 09:59 Pulse 77 08/13/25 09:59 Resp 18 08/13/25 09:59 BP 110/60 08/13/25 09:59 Pulse Ox 96 08/13/25 09:59 Oxygen Delivery Method Room Air 08/13/25 09:59 BMI result Body Mass Index 31.8 Tobacco/Smoking Status: Tobacco use Status Tobacco use date assessed 08/13/25 08/13/25 10:07 Patient Tobacco Use Status Never used Tobacco 08/13/25 10:07 e-Cigarette/Vaping Use Never Used 08/13/25 10:07 Thrive Assessment: Date of Thrive Assessment Date Thrive assessed 05/01/25 08/13/25 10:07 Currently or been in a relationship where the following occur: No concerns reported Const General: cooperative, alert, awake and Physically active Orientation/consciousness: oriented to person, oriented to place, oriented to time and patient oriented x3 HENMT Head: Yes normal to inspection Neck Neck: Yes no lymphadenopathy Resp Effort & Inspection: normal respiratory effort Auscultation: clear to auscultation bilaterally Cardio Rate: regular rate Rhythm: regular rhythm Heart sounds: S1 normal heart sound present and S2 normal heart sound present GI Palpation (GI): Soft to palpation, nontender and No hepatosplenomegaly present Neuro General: oriented to person, oriented to place, oriented to time and patient oriented x3 Extrem Right upper extremity: shoulder/upper arm Details: tenderness and abnormal ROM Details: pain with passive ROM; no swelling and elbow/forearm Details: tenderness and abnormal ROM Details: pain with active ROM during; no swelling Coding Level of Care Code Est Pt Level 3 (17952) Diagnoses Acute pain of right shoulder M25.511 Chronicity: acute Right elbow pain M25.521 Insomnia, unspecified type G47.00 Insomnia type: unspecified Chronic GERD K21.9 Time Spent (min) 33 Assessment & Plan Assessment & Plan (1) Right shoulder pain: Code(s): M25.511 - Pain in right shoulder Category: Medical Qualifiers: Chronicity: acute Qualified Code(s): M25.511 - Pain in right shoulder Plan: Complain of right shoulder pain, and hesitant to move right arm due to concern for pain. Tenderness to the entire shoulder with palpation. The right shoulder x-ray ordered to further evaluate. Depending on findings, we will send the patient for PT evaluation (2) Right elbow pain: Code(s): M25.521 - Pain in right elbow Category: Medical Plan: Right elbow x-ray order to further evaluate right elbow pain. Continue Tylenol extra strength 500 mg q.6 p.r.n. (3) Insomnia: Code(s): G47.00 - Insomnia, unspecified Category: Medical Qualifiers: Insomnia type: unspecified Qualified Code(s): G47.00 - Insomnia, unspecified Plan: History of insomnia managed on zolpidem 10 mg at bedtime p.r.n.. Rx refilled per request. Reinforced sleep hygiene. (4) Chronic GERD: Code(s): K21.9 - Gastro-esophageal reflux disease without esophagitis Category: Medical Plan: Do not eat meals or drink carbonated beverages within 3 hr of bedtime Decrease the amount of fried, fatty, and spicy foods to decrease gastric acid production Raise the head of the bed using 4 to 6-inch blocks, especially if nocturnal symptoms are present Lose weight if indicated; avoid tight-fitting clothing, especially around the waist Avoid foods that relax the Lower esophageal sphincter (chocolate, peppermint, high-fat foods etc.,) The patient should take pantoprazole 40 mg at least 30 minutes before meals to manage acid reflux and associated nausea. Orders: Orders XR shoulder RT min 2V Today M25.511 - Pain in right shoulder XR elbow RT 2V Today M25.521 - Pain in right elbow Medications: Refilled zolpidem 10 mg PO BEDTIME PRN 30 tabs 0RF insomnia 30 days E78.5 - Hyperlipidemia, unspecified
== END 2025-08-13 11:10 | disposition home or self-care (01) ==
LOC: HO.HMCH 09:50
PROVIDERS: PCP Internal Medicine
DX: M25.511 Pain in right shoulder (principal); M25.521 Pain in right elbow; G47.00 Insomnia, unspecified; K21.9 Gastro-esophageal reflux disease without esophagitis

== ENCOUNTER → 2025-08-13 11:00 | Outpatient (BNV) | payer OTHER, SELFPAY | PROVIDERS: PCP Internal Medicine; Visit Provider Radiology Diagnostic Radiology | DX: M25.511 Pain in right shoulder (principal); M25.421 Effusion, right elbow | CPT/HCPCS: 73030; 73070 ==

== ENCOUNTER 2025-09-03 08:33 | Outpatient (REF) | payer OTHER, SELFPAY ==
--- OUTSIDE RECORDS SUMMARY | 2025-09-03 08:55 | XMS_ITS | Patient Health Record ---
Author Organization [facility] [place] Address [address] [place] [address] Care Team Providers Care Freezing Machine Operator Name Role Phone Wilbert Sahu Erwin [phone] Reason For Referral No Information Plan Of Treatment No Information
--- OUTSIDE RECORDS SUMMARY | 2025-09-03 08:55 | XMS_ITS ---
Author Name Nhi Varela NP Address [address] [place] [address] Phone [phone] [facility] Care Team Providers Care Inside Outside Sales Representative Name Role Phone Nhi Varela Unavailable [phone] JOHANA TIPTON Unavailable [phone] Diamond Lynch Unavailable [phone] Reason for Referral Not Available Allergies, adverse [...] Test Strip TEST ONCE A DAY NEEDED 2 No Data Available Acyclovir 800 mg Tab [...] coughing or SOA 2025-04-04 No Data Available [employer] 2 w/Device Kit DIRECTED 2025-04-25 No Data [...] exercises, heat therapy, and conitnue with PCP.Mariluz Cooperower chair ordered. Asthma, severe persistent Active 2025-04-04 N/A StableRX: listed Monitor for acute respiratory s/sx (eg. SOB, wheezing) and continue with PCP.Previous: 04/04/25Mealyssiaer called into acute requesting medications changesReports her [...] (do not use for phone, instead use [id number]) [facility] [place] 10/03/2024 Type 2 diabetes mellitus wit h [...] (do not use for phone, instead use 10458-18) [facility] [place] 10/03/2024 New patient,40-59min; chronic exacerbation, 2 stable chronic or 1 acute illness add add modifier 95 for video (do not use for phone, instead use 84668-71) [facility] [place] 10/03/2024 New patient,40-59min; chronic exacerbation, 2 stable chronic or 1 acute illness add add modifier 95 for video (do not use for phone, instead use 17717-50) [facility] [place] 10/03/2024 New patient,40-59min; chronic exacerbation, 2 stable chronic or 1 acute illness add add modifier 95 for video (do not use for phone, instead use 91008-30) [facility] [place] 10/03/2024 New patient,40-59min; chronic exacerbation, 2 stable chronic or 1 acute illness add add modifier 95 for video (do not use for phone, instead use 67791-64) [facility] [place] 10/03/2024 New patient,40-59min; chronic exacerbation, 2 stable chronic or 1 acute illness add add modifier 95 for video (do not use for phone, instead use [id number]) [facility] [place] 10[place]03/2024 Estab. patient 10-29min; 1 minor problem; add add modifier 95 for video, modifier 93 for [facility] 04[place]04/2025 Severe persistent asthma, uncomplicated Estab. patient 10-29min; 1 minor problem; add add modifier 95 for video, modifier 93 for [facility] 04/04/2025 Estab. patient 10-29min; 1 minor problem; add add modifier 95 for video, modifier 93 for [facility] 05/21/2025 Type 2 diabetes mellitus wit [...] 95 for video, modifier 93 for phone [facility] [place] 05/21/2025 Estab. patient 10-29min; 1 minor problem; add add modifier 95 for video, modifier 93 for [facility] 05/21/2025 Estab. patient 10-29min; 1 minor problem; add add modifier 95 for video, modifier 93 for [facility] 05/21/2025 Estab. patient 10-29min; 1 minor problem; add add modifier 95 for video, modifier 93 for [facility] 05/21/2025 Estab. patient 10-29min; 1 minor problem; add add modifier 95 for video, modifier 93 for [facility] 05/21/2025 Estab. patient 10-29min; 1 minor problem; add add modifier 95 for video, modifier 93 for phone [facility] 05[place]21/2025 Estab. patient 10-29min; 1 minor problem; add add modifier 95 for video, modifier 93 [facility] 05/21/2025 Estab. patient 10-29min; 1 minor problem; add add modifier 95 for video, modifier 93 for phone [facility] 05/21/2025 Estab. patient 10-29min; 1 minor problem; add add modifier 95 for video, modifier 93 for [facility] 05/21/2025 Estab. patient 10-29min; 1 minor problem; add add modifier 95 for video, modifier 93 for phone [facility] 06/26/2025 Pain in right shoulderPain i n [...] tive Time Current Smoking Status Never smoker 3 Sex Female History of Procedures Procedures Service Procedure code Service date Servicing provider Phone# New patient,40-59min; chronic exacerbation, 2 stable chronic or 1 acute illness add add modifier 95 for video (do not use for phone, instead use [id number]) [id number] 2024-10-03 No Data Available No Data Availa ble Advance care planning discussed and documented in the medical record beneficiary/patient did not wish to or was unable to provide an advance care plan or name a surrogate decision-maker. ([id number]) [id number] 2024-10-03 No Data Available No Data Availa ble Medication List Documented (2024F) [id number] 2024-10-03 No Data Available No Data [...] 95 for video, modifier 93 for phone [id number] 2025-04-04 No Data Available No Data Availa ble Medication List Documented ([id number]) [id number] 2025-04-04 No Data Available No Data Sasha ilable Estab. patient 10-29min; 1 minor problem; add add modifier 95 for video, modifier 93 for phone [id number] 2025-05-21 No Data Available No Data Availa [...] 95 for video, modifier 93 for phone [id number] 2025-06-26 No Data Available No Data Availa [...] 4 times per day prn #90 gram [id number] Review by prescribing provider or pharmacist documented [...] and lifestyle interventions. 2025-05-21 Contact us if develo ping health-related concerns. 2025-05-21 Continue f/u care [...] Measures: No open measures 2025-06-26 REMINDERS (DELETE PA IOR TO SIGNING NOTE):Review Outside Care and Golgi for any updates to medical historyReview and update contingency plan based on most recent ER utilizationLook for New or In Progress tasks and follow-up as neededProvide education on behavioral modifications for better chronic disease control or symptom management
[2025-09-03 09:47] LABS: Alanine Aminotransferase 19 U/L (0-31); Albumin Level 4.7 g/dL (3.5-5.0); Alkaline Phosphatase 90 U/L (39-117); Anion Gap 10 (12-20); Aspartate Amino Transferase 20 U/L (5-31); Blood Urea Nitrogen 11 mg/dL (9-16); Calcium 10.0 mg/dL (8.4-10.2); Carbon Dioxide 29 mmol/L (22-29); Chloride 106 mmol/L (96-108); Cholesterol 136 mg/dL (<200); Estimated Glomerular Filt Rate > 60; HDL Cholesterol 54 mg/dL (>40); Potassium 4.2 mmol/L (3.3-5.1); Sodium 141 mmol/L (135-145); Total Protein 7.6 g/dL (6.5-8.0); Triglycerides 69 mg/dL (<150)
[2025-09-03 09:50] LABS: Microalbum/Creatinine Ratio Ur 17.9 ug/mg cr (<30)
[2025-09-03 10:09] LABS: Thyroid Stimulating Hormone 2.17 uIU/mL (0.32-4.0)
== END 2025-09-03 08:34 | disposition home or self-care (01) ==
LOC: HO.LAB 08:33
PROVIDERS: PCP Internal Medicine; Visit Provider Internal Medicine
DX: I10 Essential (primary) hypertension (principal); E55.9 Vitamin D deficiency, unspecified; E78.5 Hyperlipidemia, unspecified; E06.3 Autoimmune thyroiditis; R80.9 Proteinuria, unspecified
CPT/HCPCS: 36415; 80053; 80061; 82043; 82306; 82570; 84443

== ENCOUNTER 2025-09-06 09:11 | Outpatient (AMB) | payer OTHER, SELFPAY ==
--- NOTE | 2025-09-06 09:20 | A.OFFPC_ITS ---
Vital Signs 09/06/25 09:22 Height 4 ft 10 in Weight 150 lb BMI 31.3 BP 110/68 Blood Pressure Location Lt brachial Position Sitting Pulse 71 Pulse Source Pulse Oximeter Temp 97.1 F Temp Source Temporal Artery Scan Pulse Oximetry (%) 91 L Oxygen Delivery Method Room Air Intake Visit Reasons: 4 months Intake Note: Patient is here to follow up on DM, GERD, HTN. Principal Military Analyst Required: Yes Principal Military Analyst Language: Citizen Of [place] Residential Subcontractor: Present Accompanied by: Daughter Allergies No Known Allergies (No Known Allergies*) Allergy (Verified 09/06/25 09:36) Medication List - Last Reconciled 09/06/25 by Karo Arenas MD acetaminophen (Tylenol Extra Strength) 500 mg PO Q6H PRN albuterol sulfate 90 mcg/actuation 2 puffs inhalation Q4-6H PRN 30 days aspirin (Adult Aspirin Regimen) 81 mg PO DAILY 30 days blood pressure test kit-large (Advocate Blood Pressure Monitor kit) As directed blood sugar diagnostic (OneTouch Ultra Test strips) As directed- BID blood sugar diagnostic (Accu-Chek Guide test strips) Use 1 test strip once a day blood-glucose meter (Accu-Chek Guide Glucose Meter) As directed blood-glucose meter (iiyumaTouch Verio Flex Meter) As directed cane As directed cholecalciferol (vitamin D3) 25 mcg PO DAILY 90 days fluticasone furoate 50 mcg/actuation (Arnuity Ellipta) 1 inh inhalation Q24H 30 days hydrocortisone 1% (Anti-Itch (hydrocortisone)) 1 appl topical BID PRN 4 weeks lancets (iiyumatouch Delica Safety Lancet) As directed two times per day lancets (Accu-Chek Softclix Lancets) Use 1 lancet once a day levothyroxine 50 mcg PO DAILY 90 days lisinopril 2.5 mg PO DAILY 90 days metformin 500 mg PO BID 90 days pantoprazole 40 mg PO DAILY 90 days polyethylene glycol 3350 (Miralax) 17 grams PO DAILY simvastatin 40 mg PO BEDTIME 90 days vitamin B complex 1 tab PO DAILY zolpidem 10 mg PO BEDTIME PRN 30 days Tobacco use date assessed: 09/06/25 Fall risk assessment: No Falls in past year Last assessed Fall Risk: 09/06/25 Dental Screening Dental Screen Date: 08/13/25 HPI HPI Comments History of Present Illness Details The patient is a 75-year-old female presenting for a follow-up visit for management of multiple chronic conditions, including diabetes, hypertension, hypercholesterolemia, and insomnia. Her chronic conditions appear to be well- managed, with a recent apwum-va-hvlh A1c of 6.9, blood pressure less than 130/80 mmHg, and an LDL cholesterol level below 70 mg/dL. The patient has a history of asthma and uses an inhaler; her previous medication, Flovent, has been discontinued. She is also scheduled to begin physical therapy for an elbow condition. A new finding of a unilateral rash was identified as herpes zoster, which has been present for approximately four to five days. The patient noticed the rash while bathing but was unaware of the diagnosis. [facility] Medical History (Updated 09/06/25 @ 10:53 by Karo Arenas MD) Mild recurrent major depression Hypercalcemia Dysphagia Hyperlipidemia LDL goal <70 Moderate asthma Age related osteoporosis Multinodular thyroid Left leg pain Diabetes Autoimmune thyroiditis Obesity (BMI 30-39.9) GERD (gastroesophageal reflux disease) Asthma Osteoarthritis Depression Dyslipidemia Thyroid nodule Insomnia Surgical History History of endoscopy History of esophagogastroduodenoscopy (EGD) History of surgery History of laparoscopic cholecystectomy Hx of colonoscopy Hx of wisdom tooth extraction Hx of tubal ligation Hx of appendectomy Family History Father Edema Mother Diabetes CVA (cerebral vascular accident) Hypertension Social History Household Members: None Housing: Apartment Alcohol intake: never Patient Tobacco Use Status: Never used Tobacco e-Cigarette/Vaping Use: Never Used Second Hand Smoke Exposure: No Advance Directives Date on File: 08/15/20 service: No Current occupational status: disabled Cognitive needs: No Hearing needs: No Vision needs: Yes Female Reproductive History Menstrual Age of Menarche: 15 Questionnaire Thrive Questionnaire Date Thrive assessed: 05/01/25 I am a: Patient What is your living situation today?: I have a steady place to live Within the past 12 months, did the food you bought not last and you didn't have the money to get more?: Sometimes True Within the past 12 months, did you worry whether your food would run out before you got money to buy more?: Sometimes True Do you have trouble paying for medicines?: No Do you have trouble getting transportation to medical appointments?: No Do you have trouble paying your heating and electricity bill?: No Do you have trouble taking care of your child, family member or friend?: Yes Do you have trouble with day-to-day activities such as bathing, preparing meals, shopping, managing finances, etc.?: Yes Are you currently unemployed and looking for a job?: No Are you interested in more education?: No Please select the resources that you would like help with: Food Currently or been in a relationship where the following occur: No concerns reported THRIVE Score: 2 LIZZETTE-7 AMB Questionnaire LIZZETTE-7 Date LIZZETTE - 7 assessed: 12/05/24 Source: Developed by Drs. Wilbert Garcia, Mary Vera, Dimitry Church and colleagues, with an educational amairani from [employer]. Review of Systems Const All systems reviewed & are unremarkable except as noted in HPI and below Card Denies chest pain at rest, Denies chest pain with activity, Denies edema, Denies irregular heart rhythm, Denies claudication, Denies dyspnea, Denies dyspnea on exertion, Denies orthopnea, Denies paroxysmal nocturnal dyspnea and Denies slow heart rate Resp Denies cough, Denies dyspnea and Denies dyspnea on exertion GI Denies abdominal pain, Denies change in bowel habits, Denies excessive flatus, Denies nausea and Denies vomiting Physical exam (Primary Care) Vital Signs: Last Vital Signs Temp 97.1 F 09/06/25 09:22 Pulse 71 09/06/25 09:22 BP 110/68 09/06/25 09:22 Pulse Ox 91 L 09/06/25 09:22 Oxygen Delivery Method Room Air 09/06/25 09:22 BMI result Body Mass Index 31.3 BMI Assessment/Plan discussion: High BMI High, discussed plan: lifestyle, weight reduction, dietary and physical activity Tobacco/Smoking Status: Tobacco use Status Tobacco use date assessed 09/06/25 09/06/25 09:30 Patient Tobacco Use Status Never used Tobacco 09/06/25 09:30 e-Cigarette/Vaping Use Never Used 09/06/25 09:30 Thrive Assessment: Date of Thrive Assessment Date Thrive assessed 05/01/25 09/06/25 09:30 Currently or been in a relationship where the following occur: No concerns repo rted Resp Effort & Inspection: normal respiratory effort Auscultation: clear to auscultation bilaterally Cardio Jugular venous distension: no JVD Rate: regular rate Rhythm: regular rhythm Heart sounds: S1 normal heart sound present and S2 normal heart sound present Skin Rashes: rashes noted vesicles right buttock Extrem General: Yes full ROM Results AMB Hemoglobin A1c AMB Hemoglobin A1c 6.9 % Last Edit by JOSE Concepcion on 09/06/25 09:34 Immunizations Tenivac (PF) 5 Lf unit-2 Lf unit/0.5 mL intramuscular suspension Performing Provider: Karo Arenas MD [facility] Administered by: Greta Srinivasan CMA on 09/06/25 09:52 Dose Route Admin Location Dispensed Lot Number Expiration Date NDC Headrig [place] 0.5 mL IM Left Deltoid 0.5 mL [id number] 01/30/27 68911-555-81 [employer] Total Dispensed Waste 0.5 mL 0 % VIS Given Date VIS Provided VIS Publication Date 09/06/25 Single Vaccine 21 Eligibility Eligibility Date Funding Source Not [facility] Eligible 09/06/25 Private Results Reviewed Results Reviewed: Laboratory Last Values Hgb A1c (Clinic) 6.9 % (4.0-6.0) H 09/06/25 09:19 Coding Level of Care Code Est Pt Level 4 (61354) Complex EM visit Add On G2211 Diagnoses Essential hypertension I10 Mild recurrent major depression F33.0 Dyslipidemia E78.5 Type 2 diabetes mellitus with unspecified complications E11.8 Insomnia, unspecified type G47.00 Insomnia type: unspecified Moderate asthma J45.909 Herpes zoster B02.9 Time Spent (min) 23 Assessment & Plan Assessment & Plan (1) Essential hypertension: Code(s): I10 - Essential (primary) hypertension Category: Medical (2) Mild recurrent major depression: Code(s): F33.0 - Major depressive disorder, recurrent, mild Category: Medical (3) Dyslipidemia: Code(s): E78.5 - Hyperlipidemia, unspecified Category: Medical (4) Type 2 diabetes mellitus with unspecified complications: Code(s): E11.8 - Type 2 diabetes mellitus with unspecified complications Category: Medical (5) Insomnia: Code(s): G47.00 - Insomnia, unspecified Category: Medical Qualifiers: Insomnia type: unspecified Qualified Code(s): G47.00 - Insomnia, unspecified (6) Moderate asthma: Code(s): J45.909 - Unspecified asthma, uncomplicated Category: Medical (7) Herpes zoster: Code(s): B02.9 - Zoster without complications Category: Medical Plan Plan 1. Diabetes, Hypertension, And Hypercholesterolemia The patient's diabetes, hypertension, and hypercholesterolemia are well- controlled, with a bgsbm-jt-ipvz A1c of 6.9, blood pressure <130/80 mmHg, and LDL cholesterol <70 mg/dL. Current medication regimens for these conditions are effective and will be continued. A follow-up with repeat labs is scheduled for four months. 2. Herpes Zoster The patient was newly diagnosed with herpes zoster (shingles) based on a unilateral rash. As the rash has been present for four to five days, antiviral treatment is not indicated as it is outside the effective window. The patient was reassured that the lesion is small, in a safe location, and is expected to resolve on its own. 3. Asthma The patient's current inhaler, Flovent, has been discontinued. An equivalent medication will be prescribed. 4. Preventative Care Immunizations were discussed, and the patient consented to receive a Td vaccine during the visit, as it has been almost five years since her last one. The patient declined the influenza and pneumonia vaccines at this time. 5. Insomnia The patient's insomnia is managed with medication, which will be continued. Orders: Orders Lipid Panel 4 Months E78.5 - Hyperlipidemia, unspecified Thyroid Stimulating Hormone 4 Months E06.3 - Autoimmune thyroiditis AMB Hemoglobin A1c Today E11.8 - Type 2 diabetes mellitus with unspecified complications Microalbumin, Random (w Creat) 4 Months R80.9 - Proteinuria, unspecified Vitamin D 25-OH Total 4 Months E55.9 - Vitamin D deficiency, unspecified Comprehensive [place]. Panel Fast 4 Months I10 - Essential (primary) hypertension Td Immunization Today Z23 - Encounter for immunization Medications: Refilled zolpidem 10 mg PO BEDTIME PRN 30 tabs 0RF insomnia 30 days E78.5 - Hyperlipidemia, unspecified
[2025-09-06 09:22] VITALS: BP 110/68; PULSE 71; TEMP 36.2; O2SAT 91; BMI 31.3
--- OUTSIDE RECORDS SUMMARY | 2025-09-06 10:04 | XMS_ITS | Patient Health Record ---
Author Organization [facility] Address [address] [place] [address] Care Team Providers Care Ground Crew Lines Person Name Role Phone Wilbert Sahu Erwin [phone] Reason For Referral No Information Plan Of Treatment No Information
--- OUTSIDE RECORDS SUMMARY | 2025-09-06 10:04 | XMS_ITS ---
Author Name Nhi Varela NP Address [address] [place] [address] Phone [phone] [facility] Care Team Providers Care Analytical Data Miner Name Role Phone Nhi Varela Unavailable [phone] JOHANA TIPTON Unavailable [phone] Diamond Lynch Unavailable [phone] Reason for Referral Not Available Allergies, adverse [...] coughing or SOA 2025-04-04 No Data Available Volve 2 w/Device Kit DIRECTED 2025-04-25 No Data [...] (do not use for phone, instead use [id number]) [facility]20[place] Type 2 diabetes mellitus wit h [...] (do not use for phone, instead use 59419-14) [facility]/20[place] New patient,40-59min; chronic exacerbation, 2 stable chronic or 1 acute illness add add modifier 95 for video (do not use for phone, instead use 76686-16) [facility]/20[place] New patient,40-59min; chronic exacerbation, 2 stable chronic or 1 acute illness add add modifier 95 for video (do not use for phone, instead use 70000-64) [facility] 10[place]/20[place] New patient,40-59min; chronic exacerbation, 2 stable chronic or 1 acute illness add add modifier 95 for video (do not use for phone, instead use 64004-01) [facility] [place] 10/03/20[place] New patient,40-59min; chronic exacerbation, 2 stable chronic or 1 acute illness add add modifier 95 for video (do not use for phone, instead use 65822-22) [facility] ([place] 10[place]03/20[place] New patient,40-59min; chronic exacerbation, 2 stable chronic or 1 acute illness add add modifier 95 for video (do not use for phone, instead use 19082-45) [facility]20[place] Estab. patient 10-29min; 1 minor problem; add add modifier 95 for video, modifier 93 for [facility]2025 Severe persistent asthma, uncomplicated Estab. patient 10-29min; 1 minor problem; add add modifier 95 for video, modifier 93 for [facility] 04[place]04[place]20[place] Estab. patient 10-29min; 1 minor problem; add add modifier 95 for video, modifier 93 for [facility] 05/21/2025 Type 2 diabetes [...] 95 for video, modifier 93 for phone [facility] 05[place]21/2025 Estab. patient 10-29min; 1 minor problem; add add modifier 95 for video, modifier 93 for [facility] 05/21/2025 Estab. patient 10-29min; 1 minor problem; add add modifier 95 for video, modifier 93 for [facility] 05/21/2025 Estab. patient 10-29min; 1 minor problem; add add modifier 95 for video, modifier 93 for [facility] 05/21/2025 Estab. patient 10-29min; 1 minor problem; add add modifier 95 for video, modifier 93 for [facility] 05/21/2025 Estab. patient 10-29min; 1 minor problem; add add modifier 95 for video, modifier 93 for phone [facility] [place] 05[place]21/2025 Estab. patient 10-29min; 1 minor problem; add add modifier 95 for video, modifier 93 [facility] [place] [facility] Estab. patient 10-29min; 1 minor problem; add add modifier 95 for video, modifier 93 for phone [facility] [place] 05[place]21/2025 Estab. patient 10-29min; 1 minor problem; add add modifier 95 for video, modifier 93 for [facility] [place]21/2025 Estab. patient 10-29min; 1 minor problem; add add modifier 95 for video, modifier 93 for phone [facility] [place] 06/26/2025 Pain in right shoulderPain i n [...] (do not use for phone, instead use 97976-64) [id number] 2024-10-03 No Data Available No Data Availa ble Advance care planning discussed and documented in the medical record beneficiary/patient did not wish to or was unable to provide an advance care plan or name a surrogate decision-maker. ([id number]) [id number] 2024-10-03 No Data Available No Data Availa ble Medication List Documented ([id number]) [id number] 2024-10-03 No Data Available No Data [...] 95 for video, modifier 93 for phone [id number] 2025-04-04 No Data Available No Data Availa ble Medication List Documented ([id number]) [id number] 2025-04-04 No Data Available No Data Sasha ilable Estab. patient 10-29min; 1 minor problem; add add modifier 95 for video, modifier 93 for phone [id number] 2025-05-21 No Data Available No Data Availa [...] 95 for video, modifier 93 for phone [id number] 2025-06-26 No Data Available No Data Availa [...] 4 times per day prn #90 gram [id number] Review by prescribing provider or pharmacist documented [...] Measures: No open measures 2025-06-26 REMINDERS (DELETE WI IOR TO SIGNING NOTE):Review Outside Care and Golgi for any updates to medical historyReview and update contingency plan based on most recent ER utilizationLook for New or In Progress tasks and follow-up as neededProvide education on behavioral modifications for better chronic disease control or symptom management
== END 2025-09-06 09:58 | disposition home or self-care (01) ==
LOC: HO.HMCH 09:11
PROVIDERS: PCP Internal Medicine; Visit Provider Internal Medicine
DX: I10 Essential (primary) hypertension (principal); F33.0 Major depressive disorder, recurrent, mild; E78.5 Hyperlipidemia, unspecified; E11.8 Type 2 diabetes mellitus with unspecified complications; G47.00 Insomnia, unspecified; J45.909 Unspecified asthma, uncomplicated; B02.9 Zoster without complications; Z23 Encounter for immunization

== ENCOUNTER → 2025-09-06 09:11 | Outpatient (BNVA) | payer OTHER, SELFPAY | PROVIDERS: PCP Internal Medicine; Visit Provider Internal Medicine | DX: I10 Essential (primary) hypertension (principal); Z23 Encounter for immunization; F33.0 Major depressive disorder, recurrent, mild; E87.5 Hyperkalemia; E11.8 Type 2 diabetes mellitus with unspecified complications; G47.00 Insomnia, unspecified; J45.909 Unspecified asthma, uncomplicated; B02.9 Zoster without complications | CPT/HCPCS: 83036; 90471; 90714; 99212 ==